=== PATIENT | male | born 1960 | race Caucasian/White ===

== ENCOUNTER 2017-01-16 13:17 | Inpatient (IN) | payer MEDICAID, MEDICARE, OTHER ==
[~2017-01-16] VITALS: Ht 188 cm; Wt 68.3 kg
[2017-01-16] MEDS ORDERED: IV NORMAL SALINE 1000ML BAG 1,000 ML IV SCH (13:37)
[2017-01-16] MEDS ORDERED: 0.9 % SODIUM CHLORIDE 10 ML DISP.SYRIN. IV PRN (13:45)
[2017-01-16] MEDS ORDERED: ONDANSETRON PF 4 MG/2 ML VIAL. IV ONE (13:45)
--- NOTE | 2017-01-16 13:49 | PHYS DOC ---
Past Medical History Past Medical History: Anxiety, Bipolar, Depression, GERD, Hypertension Additional Past Surgical Histo: right shoulder Alcohol Use: None Drug Use: None Adult General Chief Complaint Chief Complaint: ABNORMAL LABS HPI HPI As patient is a pleasant 56-year-old male coming from a debilitation facility for continued altered mental status as progressive over the last 6 weeks. The last 6 weeks staff is noted increased confusion decreased appetite and decreased energy. Patient complains from earlier of fuse abdominal discomfort and decreasing appetite. He denies any nausea, vomiting, diarrhea denies any fever or UTI symptoms. Patient denies any sick contacts or recent changes in medications. Staff also did notice the change of the color of his skin where he was looking progressively jaundiced. Patient has no real complaints other than mild abdominal discomfort with nausea. He said the pain does not radiate to his back or his abdomen. Patient admits the pain is been there for 4 days although the staff reports been there for 6 months. Differential diagnosis for abdominal pain considered Acute pancreatitis. Appendicitis. Acute hepatitis. Peptic ulcer disease. Nonulcer dyspepsia. Irritable bowel disease. Functional gallbladder disorder. Sphincter of Oddi dysfunction. Diseases of the right kidney. Right-sided pneumonia. Ivzh-Ngna-Gptvqs syndrome Subhepatic or intraabdominal abscess. Perforated viscus. Cardiac ischemia. Black spider envenomation Review of Systems Review of Systems Constitutional: Denies fever or chills [] Eyes: Denies change in visual acuity, redness, or eye pain [] HENT: Denies nasal congestion or sore throat [] Respiratory: Denies cough or shortness of breath [] Cardiovascular: No additional information not addressed in HPI [] GI: Patient has diffuse abdominal pain with nausea but no vomiting of bloody stools or diarrhea : Denies dysuria or hematuria [] Musculoskeletal: Denies back pain or joint pain [] Integument: Denies rash or skin lesions [] Neurologic: Denies headache, focal weakness or sensory changes he admits acute confusion[] Endocrine: Denies polyuria or polydipsia [] Current Medications Current Medications Current Medications Medications (Trade) Dose Ordered Sig/Dakota Start Time Stop Time Status Last Admin Dose Admin Ondansetron HCl (Zofran) 4 mg 1X ONCE 01/16/17 13:45 01/16/17 13:47 DC 01/16/17 14:04 4 MG Sodium Chloride (Normal Saline Flush) 10 ml QSHIFT PRN 01/16/17 13:45 Allergies Allergies Allergies Coded Allergies Type Severity Reaction Last Updated Verified No Known Drug Allergies 01/16/17 No Physical Exam Physical Exam Constitutional: He is thin and cachectic somewhat disheveled but in no acute distress HENT: Normocephalic, atraumatic, bilateral external ears normal, very dry mucous membranes with no dentition no oral exudates, nose normal. Icterus noted on the floor the mouth. [] Eyes: PERRLA, EOMI, conjunctiva normal, no icterus noted no discharge. [] Neck: Normal range of motion, no tenderness, supple, no stridor. [] Cardiovascular:Heart rate regular rhythm, no murmur [] Lungs & Thorax: Bilateral breath sounds clear to auscultation [] Abdomen: Patient is normoactive bowel sounds soft nondistended no active guarding rebound or organomegaly no Hopkins Khoury sign no Abel's or McBurney's point tenderness palpation. Skin: Warm, dry, no erythema, skin is pale and somewhat jaundiced Back: No tenderness, no CVA tenderness. [] Extremities: No tenderness, no cyanosis, no clubbing, ROM intact, no edema. [] Neurologic: Alert and oriented X 1, normal motor function, normal sensory function, no focal deficits noted. [] Psychologic: Patient is slow to respond, but appropriate. Current Patient Data Vital Signs Vital Signs Date Time Temp Pulse Resp B/P (MAP) Pulse Ox O2 Delivery O2 Flow Rate FiO2 01/16/17 14:08 92 18 108/68 (81) 95 Room Air 01/16/17 13:33 98.0 98.0 Lab Values Laboratory Tests Test 01/16/17 13:43 01/16/17 15:05 White Blood Count 7.7 x10^3/uL (4.0-11.0) Red Blood Count 5.08 x10^6/uL (4.30-5.70) Hemoglobin 14.3 g/dL (13.0-17.5) Hematocrit 42.6 % (39.0-53.0) Mean Corpuscular Volume 84 fL (79-100) Mean Corpuscular Hemoglobin 28 pg (25-35) Mean Corpuscular Hemoglobin Concent 34 g/dL (31-37) Red Cell Distribution Width 13.6 % (11.5-14.5) Platelet Count 322 x10^3/uL (140-400) Neutrophils (%) (Auto) 60 % (31-73) Lymphocytes (%) (Auto) 26 % (24-48) Monocytes (%) (Auto) 12 % (0-9) H Eosinophils (%) (Auto) 1 % (0-3) Basophils (%) (Auto) 1 % (0-3) Neutrophils # (Auto) 4.7 x10^3uL (1.8-7.7) Lymphocytes # (Auto) 2.0 x10^3/uL (1.0-4.8) Monocytes # (Auto) 0.9 x10^3/uL (0.0-1.1) Eosinophils # (Auto) 0.1 x10^3/uL (0.0-0.7) Basophils # (Auto) 0.0 x10^3/uL (0.0-0.2) Sodium Level 133 mmol/L (136-145) L Potassium Level 3.9 mmol/L (3.5-5.1) Chloride Level 96 mmol/L (98-107) L Carbon Dioxide Level 29 mmol/L (21-32) Anion Gap 8 (6-14) Blood Urea Nitrogen 6 mg/dL (8-26) L Creatinine 1.0 mg/dL (0.7-1.3) Estimated GFR (Cockcroft-Gault) 77.9 Glucose Level 102 mg/dL (70-99) H Lactic Acid Level 1.0 mmol/L (0.4-2.0) Calcium Level 9.4 mg/dL (8.5-10.1) Magnesium Level 1.9 mg/dL (1.8-2.4) Total Bilirubin 4.5 mg/dL (0.2-1.0) H Direct Bilirubin 3.6 mg/dL (0.0-0.2) H Aspartate Amino Transferase (AST) 87 U/L (15-37) H Alanine Aminotransferase (ALT) 129 U/L (16-63) H Alkaline Phosphatase 444 U/L (46-116) H Ammonia < 10 mcmol/L (11-34) L XT-Bwb-Q-Type Natriuretic Peptide 42 pg/mL (0-124) Total Protein 7.5 g/dL (6.4-8.2) Albumin 3.4 g/dL (3.4-5.0) Lipase 418 U/L (73-393) H Thyroid Stimulating Hormone (TSH) 0.549 uIU/mL (0.358-3.74) Urine Collection Type Unknown Urine Color Anastasiya Urine Clarity Clear Urine pH 6.0 Urine Specific [place] 1.010 Urine Protein Negative mg/dL (NEG-TRACE) Urine Glucose (UA) Negative mg/dL (NEG) Urine Ketones (Stick) Trace mg/dL (NEG) Urine Blood Negative (NEG) Urine Nitrite Negative (NEG) Urine Bilirubin Large (NEG) Urine Urobilinogen Dipstick 1.0 mg/dL (0.2 mg/dL) Urine Leukocyte Esterase Trace (NEG) Urine RBC 0 /HPF (0-2) Urine WBC 5-10 /HPF (0-4) Urine Bacteria 0 /HPF (0-FEW) Urine Hyaline Casts Few /HPF Urine Mucus Slight /LPF Laboratory Tests 01/16/17 13:43 Laboratory Tests 01/16/17 13:43 EKG EKG []EKG timed [address] Soler 01/16/2017 demonstrates heart rate of 81 there is a pediatric QRS is normal sinus rhythm there is a large P wave in lead 2 consistent with the atraumatic [place] interval is 146 which is normal QRS intervals 88 which is normal QTC is 451 which is normal. There is RR prime noted in V1 and V2 likely consistent with incomplete right bundle-branch block given with a QRS Radiology/Procedures Radiology/Procedures [] [facility] [address] [place] [address] IMAGING REPORT Signed PATIENT: YOUNG BAILEY ACCOUNT: [id number] : 1960 LOCATION: ER AGE: 56 SEX: M EXAM STATUS: REG ER ORD. PHYSICIAN: ABELARDO SOLER MD REASON: ABD PAIN PROCEDURE: CT ABDOMEN PELVIS WO CONTRAST Indication jaundiced. Axial noncontrast images of the abdomen and pelvis were obtained. The study is very limited particularly in evaluating the biliary tree and pancreas in that no IV contrast has been administered. No prior imaging is available. There is some minimal pleural-parenchymal scarring at the lung bases. There is a 9 mm pulmonary nodule in the posterior and medial right lower lobe. There is a 7 mm nodule medially in the right lower lobe, on the ventral side of the chest abutting the adjacent mediastinum. There several suggested nodules peripherally in the left lower lobe the largest measuring 1 cm. There is no significant pleural fluid at either lung base. A definite acute finding at either lung base is not seen. A focal mass in the liver is not seen. Again evaluation of the biliary tree is difficult in that no IV contrast as been administered. The common bile duct is perhaps minimally prominent. The gallbladder is minimally distended. No mass is suggested in the pancreatic head. There is, however, at the junction of the body and tail of the pancreas a low-density 2.6 cm mass suggesting mass at this level of the pancreas. This too could be further evaluated with a contrast exam or an MR targeted to the pancreas. No adrenal or renal anomalies are seen. In the pelvis occasional diverticula are seen associated with the large bowel. There is some mild thickening, diffusely, involving the urinary bladder. This would suggest either a chronic outlet obstructive process or possible chronic inflammation. A sclerotic focus is noted associated with the L3 vertebral body likely reflecting a bone island. There is deformity involving both the right left ischium compatible with healed fractures. There is possible adenopathy at the root of the celiac and SMA. The finding is not certain. IMPRESSION: Evaluation of the biliary tree is limited in that no IV contrast has been administered. The common bile duct is somewhat prominent and the gallbladder is slightly distended. There is no definite mass at the level of the pancreatic head although a mass is suggested at the junction of the body and tail of the pancreas. Several pulmonary nodules are seen at the lung bases. These are nonspecific. Metastatic disease is not excluded. Diffuse thickening of the urinary bladder wall suggesting either chronic inflammatory process or outlet obstructive process. Healed pelvic fractures Possible adenopathy, the finding is not certain, at the origins of the celiac and SMA PQRS Compliance Statement: One or more of the following individualized dose reduction techniques were utilized for this examination: 1. Automated exposure control 2. Adjustment of the mA and/or kV according to patient size 3. Use of iterative reconstruction technique DICTATED and SIGNED BY: SARAH PORTILLO MD DATE: 01/16/17 7926 CC: ABELARDO SOLER MD; SHANA GONZALEZ ~ Course & Med Decision Making Course & Med Decision Making Pertinent Labs and Imaging studies reviewed. (See chart for details) she presents to the emergency department with altered mental status patient described as increasing confusion and somnolence with jaundice. 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 His skin is somewhat jaundiced in appearance although he is non-toxic he does seem relatively cachectic and frail. Patient does demonstrate significant dehydration on physical exam. He does demonstrate also pain in the right upper quadrant. CAT scan of abdomen and pelvis reported that the common bile duct is somewhat predominant in the gallbladder slightly distended. It is also makes reference to several job honer at the lung bases that are nonspecific but could be metastatic disease. Patient also has a suggested the junction of the body metallic pancreas and given his abdominal pain and abnormal biliary chief findings patient had an ultrasound set up. At this point given his negative ammonia level, negative urinalysis for signs of infection other than mild white blood cell count in his urine patient clearly is not having an infection. I concern primarily is this pancreatic mass. Patient will be admitted to the hospital under the care of hospitalist service and then have GI evaluate him for this pancreatic mass. IMPRESSION: Evaluation of the biliary tree is limited in that no IV contrast has been administered. The common bile duct is somewhat prominent and the gallbladder is slightly distended. There is no definite mass at the level of the pancreatic head although a mass is suggested at the junction of the body and tail of the pancreas. Several pulmonary nodules are seen at the lung bases. These are nonspecific. Metastatic disease is not excluded. Diffuse thickening of the urinary bladder wall suggesting either chronic inflammatory process or outlet obstructive process. Healed pelvic fractures Possible adenopathy, the finding is not certain, at the origins of the celiac and SMA []Flight Deck Officer note: Internal medicine janitorial services supervisor called at of the service time of consultation is 3:50 PM Consult called back at 3:50 PM Discussed the case I presented and they agreed with admission. Time of acceptance 3:50 PM Impression: Jaundice, pancreatic mass, abdominal pain unclear etiology. Dragon Disclaimer Dragon Disclaimer This electronic medical record was generated, in whole or in part, using a voice recognition dictation system. Departure Departure Impression: Primary Impression: Pancreatic mass Additional Impressions: Jaundice Abdominal pain Disposition: 09 ADMITTED INPATIENT Admitting Physician: Aris Dubon Condition: GUARDED Problem Qualifiers ABELARDO SOLER MD Jan 16, 2017 13:49
--- NOTE | 2017-01-16 13:50 | EKG ---
[facility] [address] [place] [address] Test Date: 2017-01-16 Test Time: 13:43:51 Pat Name: YOUNG BAILEY Department: Room: Gender: Tipple Boss: : 1960 Requested By: ABELARDO SOLER Order Number: [id number] Reading MD: Measurements Intervals [place] Rate: 81 P: 44 MT: 146 QRS: 27 QRSD: 88 T: 60 QT: 388 QTc: 451 Interpretive Statements SINUS RHYTHM LEFT ATRIAL ABNORMALITY INCOMPLETE RIGHT BUNDLE BRANCH BLOCK ABNORMAL ECG RI6.01 No previous ECG available for comparison
[2017-01-16 14:00] LABS: BASO % 1 % (0-3); EOS % 1 % (0-3); HEMATOCRIT 42.6 % (39.0-53.0); HEMOGLOBIN 14.3 g/dL (13.0-17.5); LYMPH % 26 % (24-48); MEAN CORPUSCULAR HEMOGLOBIN 28 pg (25-35); MEAN CORPUSCULAR HGB CONC 34 g/dL (31-37); MEAN CORPUSCULAR VOLUME 84 fL (79-100); MONO % 12 % (0-9); NEUT % 60 % (31-73); PLATELET COUNT 322 x10^3/uL (140-400); RED BLOOD COUNT 5.08 x10^6/uL (4.30-5.70); RED CELL DISTRIBUTION WIDTH 13.6 % (11.5-14.5); WHITE BLOOD COUNT 7.7 x10^3/uL (4.0-11.0)
[2017-01-16 14:18] LABS: CALCIUM 9.4 mg/dL (8.5-10.1); GFR 77.9; POTASSIUM 3.9 mmol/L (3.5-5.1)
[2017-01-16 14:22] LABS: ALBUMIN 3.4 g/dL (3.4-5.0); DIRECT BILIRUBIN 3.6 mg/dL (0.0-0.2); MAGNESIUM 1.9 mg/dL (1.8-2.4); TOTAL BILIRUBIN 4.5 mg/dL (0.2-1.0); TOTAL PROTEIN 7.5 g/dL (6.4-8.2)
--- NOTE | 2017-01-16 14:48 | RAD ---
Indication change in mental status. Protocol study. A single view of the chest was obtained. No prior imaging is available. The heart and pulmonary vessels appear normal. There is minimal volume loss at the lung bases likely reflecting atelectasis. There is no definite acute parenchymal infiltrate in either lung. There is slight blunting of the costophrenic angles which may reflect scar. There is no pneumothorax. Postoperative changes are noted associated with the proximal right humerus. There are healed right lower rib fractures. IMPRESSION: Minimal volume loss at the lung bases likely reflecting atelectasis. A definite acute or focal process in the chest is not seen
--- NOTE | 2017-01-16 15:02 | RAD ---
Indication jaundiced. Axial noncontrast images of the abdomen and pelvis were obtained. The study is very limited particularly in evaluating the biliary tree and pancreas in that no IV contrast has been administered. No prior imaging is available. There is some minimal pleural-parenchymal scarring at the lung bases. There is a 9 mm pulmonary nodule in the posterior and medial right lower lobe. There is a 7 mm nodule medially in the right lower lobe, on the ventral side of the chest abutting the adjacent mediastinum. There several suggested nodules peripherally in the left lower lobe the largest measuring 1 cm. There is no significant pleural fluid at either lung base. A definite acute finding at either lung base is not seen. A focal mass in the liver is not seen. Again evaluation of the biliary tree is difficult in that no IV contrast as been administered. The common bile duct is perhaps minimally prominent. The gallbladder is minimally distended. No mass is suggested in the pancreatic head. There is, however, at the junction of the body and tail of the pancreas a low-density 2.6 cm mass suggesting mass at this level of the pancreas. This too could be further evaluated with a contrast exam or an MR targeted to the pancreas. No adrenal or renal anomalies are seen. In the pelvis occasional diverticula are seen associated with the large bowel. There is some mild thickening, diffusely, involving the urinary bladder. This would suggest either a chronic outlet obstructive process or possible chronic inflammation. A sclerotic focus is noted associated with the L3 vertebral body likely reflecting a bone island. There is deformity involving both the right left ischium compatible with healed fractures. There is possible adenopathy at the root of the celiac and SMA. The finding is not certain. IMPRESSION: Evaluation of the biliary tree is limited in that no IV contrast has been administered. The common bile duct is somewhat prominent and the gallbladder is slightly distended. There is no definite mass at the level of the pancreatic head although a mass is suggested at the junction of the body and tail of the pancreas. Several pulmonary nodules are seen at the lung bases. These are nonspecific. Metastatic disease is not excluded. Diffuse thickening of the urinary bladder wall suggesting either chronic inflammatory process or outlet obstructive process. Healed pelvic fractures Possible adenopathy, the finding is not certain, at the origins of the celiac and SMA PQRS Compliance Statement: One or more of the following individualized dose reduction techniques were utilized for this examination: 1. Automated exposure control 2. Adjustment of the mA and/or kV according to patient size 3. Use of iterative reconstruction technique
[2017-01-16 15:18] LABS: BILIRUBIN,URINE LARGE (NEG); GLUCOSE,URINE NEGATIVE (NEG); NITRITE,URINE NEGATIVE (NEG); PROTEIN,URINE NEGATIVE (NEG-TRACE)
[2017-01-16 15:30] LABS: BACTERIA,URINE 0 /HPF (0-FEW); RBC,URINE 0 /HPF (0-2)
[2017-01-16] MEDS ORDERED: ONDANSETRON PF 4 MG/2 ML VIAL. IV PRN (16:15)
[2017-01-16] MEDS ORDERED: fentaNYL PF VIAL 100 MCG/2 ML VIAL IV PRN (16:15)
[2017-01-16] MEDS ORDERED: ACETAMINOPHEN 325 MG TABLET. PO PRN (16:30)
[2017-01-16] MEDS ORDERED: hydrALAZINE 20 MG/ML VIAL. IVP PRN (16:30)
[2017-01-16] MEDS ORDERED: DOCUSATE SODIUM 100 MG CAPSULE. PO PRN (16:30)
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
[2017-01-16 17:26] LABS: INR 1.2 (0.8-1.1); PROTHROMBIN TIME PATIENT 14.3 SEC (11.7-14.0)
--- NOTE | 2017-01-16 17:26 | RAD ---
EXAM: CT of the chest without intravenous contrast. HISTORY: Lung nodules. TECHNIQUE: Computed tomography of the chest was performed without intravenous contrast. COMPARISON: Today's abdominal CT. FINDINGS: Refer to the abdominal CT for description of a pancreatic mass, surrounding adenopathy, and biliary dilatation. Bone windows reveal no suspicious lesions. There is a chronic compression deformity along the lower thoracic spine. Changes of internal fixation of a chronic fracture are noted along the right proximal humerus. There are no pathologically enlarged mediastinal or axillary lymph nodes. There is no pleural or pericardial effusion. The heart is not enlarged. A soft tissue density adjacent to the mediastinal border anteriorly on the right measures 8 mm transaxially and 17 mm craniocaudally. This is indeterminate but most likely represents atelectasis. Additional nodular foci in the lung bases are contiguous with atelectasis and postinflammatory change or atelectasis is favored. A true nodule in the right costophrenic angle measures 8 mm but contains a central calcification favoring benignity. Another nodule along the anterior pleural reflection measures 1.4 x 0.9 cm and is indeterminate. IMPRESSION: 1. Opacities in the lung bases are mostly flat or contiguous with atelectasis/scarring and a post inflammatory process is favored. Attention on ongoing follow-up is recommended to exclude metastatic disease. 2. Refer to the abdominal CT for description of a pancreatic mass, surrounding adenopathy, and biliary dilatation. *One or more of the following individualized dose reduction techniques were utilized for this examination: 1. Automated exposure control. 2. Adjustment of the mA and/or kV according to patient size. 3. Use of iterative reconstruction technique.
--- NOTE | 2017-01-16 17:43 | RAD ---
Limited abdomen ultrasound study of the right upper quadrant HISTORY: Right upper quadrant abdominal pain. FINDINGS: There is diffuse biliary sludge and and cholesterol crystals within the gallbladder. The gallbladder is distended measuring up to 10.6 cm in length. No gallbladder wall thickening or pericholecystic free fluid is seen. The extra hepatic bile duct measures 4.1 mm in caliber which is normal. The midline structures including the pancreas and abdominal aorta and IVC are completely obscured due to overlying bowel gas. The liver measures 15.2 cm in length. No focal hepatic mass is seen. The length of the right kidney cannot be measured since the right kidney is not completely visualized. Only the superior pole is seen. No hydronephrosis is seen within the superior pole of the right kidney. IMPRESSION: Distended gallbladder filled with biliary sludge and cholesterol crystals. The extra hepatic bile duct is visualized within the berny hepatis and is not dilated measuring 4.1 mm in caliber. The midline structures and the right kidney are obscured due to overlying bowel gas. Electronically signed by: Raul Patino MD (01/16/2017 5:40 PM) [facility]
[2017-01-16 18:24] VITALS: BP 112/71
[2017-01-16 18:25] VITALS: BP 112/71
[2017-01-16 19:00] VITALS: BP 128/70
[2017-01-16] MEDS: IV NORMAL SALINE 1000ML BAG 1,000 ML IV SCH (20:00)
[2017-01-16 22:34] VITALS: BP 110/64
[2017-01-16] MEDS ORDERED: OMEP40CA5 PO (23:37)
[2017-01-16] MEDS ORDERED: CALC300T5 PO (23:37)
[2017-01-16] MEDS ORDERED: ACET325T9 PO (23:37)
[2017-01-16] MEDS ORDERED: FLUT9.9S NS (23:37)
[2017-01-16] MEDS ORDERED: LOSA100T6 PO (23:37)
[2017-01-16] MEDS ORDERED: CARB15DR3 OP (23:37)
[2017-01-16] MEDS ORDERED: DOCU100C28 PO (23:37)
[2017-01-16] MEDS ORDERED: MAGN2400 PO (23:37)
[2017-01-16] MEDS ORDERED: SIME100L MC (23:37)
[2017-01-16] MEDS ORDERED: NYST15CR2 TP (23:37)
[2017-01-16] MEDS ORDERED: LEVE500T6 PO (23:37)
[2017-01-16] MEDS ORDERED: ESCITALOPRAM OX10 MG PO (23:37)
[2017-01-16] MEDS ORDERED: OLAN5TAB9 PO (23:37)
[2017-01-16] MEDS ORDERED: TRAZ50TA15 PO (23:37)
[2017-01-16] MEDS ORDERED: ACID1TAB11 PO (23:37)
[2017-01-17] VITALS (11 sets, daily range): BP systolic 101–142; BP diastolic 71–82
[2017-01-17] MEDS: IV NORMAL SALINE 1000ML BAG 1,000 ML IV SCH ×2 (00:02→12:31)
[2017-01-17 05:11] LABS: BASO # 0.1 x10^3/uL (0.0-0.2); BASO % 1 % (0-3); EOS % 2 % (0-3); HEMATOCRIT 37.3 % (39.0-53.0); HEMOGLOBIN 12.6 g/dL (13.0-17.5); LYMPH # 1.7 x10^3/uL (1.0-4.8); LYMPH % 27 % (24-48); MEAN CORPUSCULAR HEMOGLOBIN 29 pg (25-35); MEAN CORPUSCULAR HGB CONC 34 g/dL (31-37); MEAN CORPUSCULAR VOLUME 85 fL (79-100); MONO % 13 % (0-9); NEUT % 57 % (31-73); PLATELET COUNT 263 x10^3/uL (140-400); RED CELL DISTRIBUTION WIDTH 13.6 % (11.5-14.5); WHITE BLOOD COUNT 6.5 x10^3/uL (4.0-11.0)
[2017-01-17 05:35] LABS: CALCIUM 8.5 mg/dL (8.5-10.1); CREATININE 0.7 mg/dL (0.7-1.3); GFR 117.5
[2017-01-17 05:36] LABS: ALBUMIN 2.8 g/dL (3.4-5.0); DIRECT BILIRUBIN 3.1 mg/dL (0.0-0.2); TOTAL BILIRUBIN 3.8 mg/dL (0.2-1.0); TOTAL PROTEIN 5.9 g/dL (6.4-8.2)
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
[2017-01-17] MEDS: ENOXAPARIN 40 MG/0.4 ML SYRINGE. SQ SCH (09:00)
[2017-01-17] MEDS ORDERED: LIDOCAINE 2% PF Vial for OR 5 ML VIAL. ONE (09:30)
[2017-01-17] MEDS ORDERED: ONDANSETRON PF 4 MG/2 ML VIAL. ONE (09:30)
[2017-01-17] MEDS ORDERED: SUCCINYLCHOLINE 200 MG/10 ML VIAL. ONE (09:30)
[2017-01-17] MEDS ORDERED: PROPOFOL 20 ML IV ONE (09:30)
[2017-01-17] MEDS ORDERED: DEXAMETHASONE SOD PHOS 20 MG/5 ML VIAL. ONE (09:30)
[2017-01-17] MEDS ORDERED: FAMOTIDINE 20 MG/2 ML VIAL ONE (09:30)
[2017-01-17] MEDS ORDERED: IOHEXOL 300 MG/ML 50 ML VIAL. ONE (09:57)
[2017-01-17] MEDS ORDERED: IOHEXOL 300 MG/ML 50 ML VIAL. IV ONE (10:38)
--- NOTE | 2017-01-17 11:06 | PDOC4 ---
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
[2017-01-17] MEDS ORDERED: IV RINGERS,LACTATED 1000ML 1,000 ML IV SCH (11:20)
--- NOTE | 2017-01-17 11:21 | RAD ---
Indication jaundice. Abnormal liver function tests. For members of the Department of medicine fluoroscopy was provided. Imaging was provided primarily for guidance purposes as opposed diagnostic purposes. 8 fluoroscopic images were obtained. Fluoroscopy time associated with the examination has been indicated as 1 minute 27 seconds. According to the ERCP notes an attempt was made to place a biliary stent. This however could not be accomplished secondary to ampullary stricture.
[2017-01-17] MEDS: MORPHINE SULFATE 2 MG/ML DISP.SYRIN. IV PRN ×2 (11:24→20:14)
[2017-01-17] MEDS ORDERED: HYDROmorphone 2 MG/ML VIAL IV PRN (11:30)
[2017-01-17] MEDS ORDERED: LIDOCAINE 1% PF 2 ML VIAL. ID PRN (11:30)
[2017-01-17] MEDS ORDERED: PROCHLORPERAZINE 10 MG/2 ML VIAL. IV PRN (11:30)
[2017-01-17] MEDS ORDERED: MORPHINE SULFATE 2 MG/ML DISP.SYRIN. IV PRN (11:30)
[2017-01-17] MEDS ORDERED: fentaNYL PF VIAL 100 MCG/2 ML VIAL IV PRN ×2 (11:30)
[2017-01-17] MEDS: NICOTINE 21MG PATCH. TD SCH (12:31)
--- NOTE | 2017-01-17 13:00 | PDOC ---
PROGRESS NOTES Chief Complaint Chief Complaint AMS, with h/o dementia, acute metabolic encephalopathy w. delirium on admit one 2.6cm pancreatic mass, consider pancreatic cancer multiple lung nodules, need to rule out mets h/o dementia, not sure baseline or if recent brain injury? jaundice with elevated transaminitis previous heavy drinker. EtOH abuse GERD HTN from rehab bipolar disorder, wheelchair bound, walks with a walker History of Present Illness History of Present Illness gi consult following, Stent from ERCP unsuccessful today consider pancreatic cancer check chest CT, brain MRI HEPatitis panel, CA199, CEA PTOT Check INR, ammonia dvt ppx PTOT Vitals Vitals Vital Signs Date Time Temp Pulse Resp B/P (MAP) Pulse Ox O2 Delivery O2 Flow Rate FiO2 01/17/17 12:50 93 Room Air 10.0 01/17/17 11:45 68 20 143/76 01/17/17 11:00 98.8 98.8 Physical Exam General: Alert, Cooperative, mild distress, Other (not oriented 2/4 , some recent recall is OK, ) Heart: Normal S1, No murmurs Lungs: Other (dull bases, mod volume) Abdomen: Normal bowel sounds Extremities: No clubbing, Other (tr edema to lateral ankle, no pedal edema) Skin: No breakdown Labs LABS Laboratory Tests Test 01/16/17 13:43 01/16/17 15:05 01/17/17 04:30 White Blood Count 7.7 x10^3/uL (4.0-11.0) 6.5 x10^3/uL (4.0-11.0) Red Blood Count 5.08 x10^6/uL (4.30-5.70) 4.40 x10^6/uL (4.30-5.70) Hemoglobin 14.3 g/dL (13.0-17.5) 12.6 g/dL (13.0-17.5) Hematocrit 42.6 % (39.0-53.0) 37.3 % (39.0-53.0) Mean Corpuscular Volume 84 fL (79-100) 85 fL (79-100) Mean Corpuscular Hemoglobin 28 pg (25-35) 29 pg (25-35) Mean Corpuscular Hemoglobin Concent 34 g/dL (31-37) 34 g/dL (31-37) Red Cell Distribution Width 13.6 % (11.5-14.5) 13.6 % (11.5-14.5) Platelet Count 322 x10^3/uL (140-400) 263 x10^3/uL (140-400) Neutrophils (%) (Auto) 60 % (31-73) 57 % (31-73) Lymphocytes (%) (Auto) 26 % (24-48) 27 % (24-48) Monocytes (%) (Auto) 12 % (0-9) 13 % (0-9) Eosinophils (%) (Auto) 1 % (0-3) 2 % (0-3) Basophils (%) (Auto) 1 % (0-3) 1 % (0-3) Neutrophils # (Auto) 4.7 x10^3uL (1.8-7.7) 3.7 x10^3uL (1.8-7.7) Lymphocytes # (Auto) 2.0 x10^3/uL (1.0-4.8) 1.7 x10^3/uL (1.0-4.8) Monocytes # (Auto) 0.9 x10^3/uL (0.0-1.1) 0.9 x10^3/uL (0.0-1.1) Eosinophils # (Auto) 0.1 x10^3/uL (0.0-0.7) 0.1 x10^3/uL (0.0-0.7) Basophils # (Auto) 0.0 x10^3/uL (0.0-0.2) 0.1 x10^3/uL (0.0-0.2) Prothrombin Time 14.3 SEC (11.7-14.0) Prothromb Time International Ratio 1.2 (0.8-1.1) Sodium Level 133 mmol/L (136-145) 137 mmol/L (136-145) Potassium Level 3.9 mmol/L (3.5-5.1) 4.0 mmol/L (3.5-5.1) Chloride Level 96 mmol/L (98-107) 103 mmol/L (98-107) Carbon Dioxide Level 29 mmol/L (21-32) 27 mmol/L (21-32) Anion Gap 8 (6-14) 7 (6-14) Blood Urea Nitrogen 6 mg/dL (8-26) 5 mg/dL (8-26) Creatinine 1.0 mg/dL (0.7-1.3) 0.7 mg/dL (0.7-1.3) Estimated GFR (Cockcroft-Gault) 77.9 117.5 Glucose Level 102 mg/dL (70-99) 93 mg/dL (70-99) Lactic Acid Level 1.0 mmol/L (0.4-2.0) Calcium Level 9.4 mg/dL (8.5-10.1) 8.5 mg/dL (8.5-10.1) Magnesium Level 1.9 mg/dL (1.8-2.4) Total Bilirubin 4.5 mg/dL (0.2-1.0) 3.8 mg/dL (0.2-1.0) Direct Bilirubin 3.6 mg/dL (0.0-0.2) 3.1 mg/dL (0.0-0.2) Aspartate Amino Transf (AST/SGOT) 87 U/L (15-37) 67 U/L (15-37) Alanine Aminotransferase (ALT/SGPT) 129 U/L (16-63) 89 U/L (16-63) Alkaline Phosphatase 444 U/L (46-116) 372 U/L (46-116) Ammonia < 10 mcmol/L (11-34) FI-Lwr-Z-Type Natriuretic Peptide 42 pg/mL (0-124) Total Protein 7.5 g/dL (6.4-8.2) 5.9 g/dL (6.4-8.2) Albumin 3.4 g/dL (3.4-5.0) 2.8 g/dL (3.4-5.0) Lipase 418 U/L (73-393) Thyroid Stimulating Hormone (TSH) 0.549 uIU/mL (0.358-3.74) Urine Collection Type Unknown Urine Color Anastasiya Urine Clarity Clear Urine pH 6.0 Urine Specific [place] 1.010 Urine Protein Negative mg/dL (NEG-TRACE) Urine Glucose (UA) Negative mg/dL (NEG) Urine Ketones (Stick) Trace mg/dL (NEG) Urine Blood Negative (NEG) Urine Nitrite Negative (NEG) Urine Bilirubin Large (NEG) Urine Urobilinogen Dipstick 1.0 mg/dL (0.2 mg/dL) Urine Leukocyte Esterase Trace (NEG) Urine RBC 0 /HPF (0-2) Urine WBC 5-10 /HPF (0-4) Urine Bacteria 0 /HPF (0-FEW) Urine Hyaline Casts Few /HPF Urine Mucus Slight /LPF Review of Systems Review of Systems not hungry, some nausea no new complaint Assessment and Plan Assessmemt and Plan Problems Medical Problems: (1) Abdominal pain Status: Acute (2) Jaundice Status: Acute (3) Pancreatic mass Status: Acute Problems: Comment Review of Relevant I have reviewed the following items regla (where applicable) has been applied. Labs Laboratory Tests Test 01/16/17 13:43 01/16/17 15:05 01/17/17 04:30 White Blood Count 7.7 x10^3/uL (4.0-11.0) 6.5 x10^3/uL (4.0-11.0) Red Blood Count 5.08 x10^6/uL (4.30-5.70) 4.40 x10^6/uL (4.30-5.70) Hemoglobin 14.3 g/dL (13.0-17.5) 12.6 g/dL (13.0-17.5) Hematocrit 42.6 % (39.0-53.0) 37.3 % (39.0-53.0) Mean Corpuscular Volume 84 fL (79-100) 85 fL (79-100) Mean Corpuscular Hemoglobin 28 pg (25-35) 29 pg (25-35) Mean Corpuscular Hemoglobin Concent 34 g/dL (31-37) 34 g/dL (31-37) Red Cell Distribution Width 13.6 % (11.5-14.5) 13.6 % (11.5-14.5) Platelet Count 322 x10^3/uL (140-400) 263 x10^3/uL (140-400) Neutrophils (%) (Auto) 60 % (31-73) 57 % (31-73) Lymphocytes (%) (Auto) 26 % (24-48) 27 % (24-48) Monocytes (%) (Auto) 12 % (0-9) 13 % (0-9) Eosinophils (%) (Auto) 1 % (0-3) 2 % (0-3) Basophils (%) (Auto) 1 % (0-3) 1 % (0-3) Neutrophils # (Auto) 4.7 x10^3uL (1.8-7.7) 3.7 x10^3uL (1.8-7.7) Lymphocytes # (Auto) 2.0 x10^3/uL (1.0-4.8) 1.7 x10^3/uL (1.0-4.8) Monocytes # (Auto) 0.9 x10^3/uL (0.0-1.1) 0.9 x10^3/uL (0.0-1.1) Eosinophils # (Auto) 0.1 x10^3/uL (0.0-0.7) 0.1 x10^3/uL (0.0-0.7) Basophils # (Auto) 0.0 x10^3/uL (0.0-0.2) 0.1 x10^3/uL (0.0-0.2) Prothrombin Time 14.3 SEC (11.7-14.0) Prothromb Time International Ratio 1.2 (0.8-1.1) Sodium Level 133 mmol/L (136-145) 137 mmol/L (136-145) Potassium Level 3.9 mmol/L (3.5-5.1) 4.0 mmol/L (3.5-5.1) Chloride Level 96 mmol/L (98-107) 103 mmol/L (98-107) Carbon Dioxide Level 29 mmol/L (21-32) 27 mmol/L (21-32) Anion Gap 8 (6-14) 7 (6-14) Blood Urea Nitrogen 6 mg/dL (8-26) 5 mg/dL (8-26) Creatinine 1.0 mg/dL (0.7-1.3) 0.7 mg/dL (0.7-1.3) Estimated GFR (Cockcroft-Gault) 77.9 117.5 Glucose Level 102 mg/dL (70-99) 93 mg/dL (70-99) Lactic Acid Level 1.0 mmol/L (0.4-2.0) Calcium Level 9.4 mg/dL (8.5-10.1) 8.5 mg/dL (8.5-10.1) Magnesium Level 1.9 mg/dL (1.8-2.4) Total Bilirubin 4.5 mg/dL (0.2-1.0) 3.8 mg/dL (0.2-1.0) Direct Bilirubin 3.6 mg/dL (0.0-0.2) 3.1 mg/dL (0.0-0.2) Aspartate Amino Transf (AST/SGOT) 87 U/L (15-37) 67 U/L (15-37) Alanine Aminotransferase (ALT/SGPT) 129 U/L (16-63) 89 U/L (16-63) Alkaline Phosphatase 444 U/L (46-116) 372 U/L (46-116) Ammonia < 10 mcmol/L (11-34) GJ-Axw-R-Type Natriuretic Peptide 42 pg/mL (0-124) Total Protein 7.5 g/dL (6.4-8.2) 5.9 g/dL (6.4-8.2) Albumin 3.4 g/dL (3.4-5.0) 2.8 g/dL (3.4-5.0) Lipase 418 U/L (73-393) Thyroid Stimulating Hormone (TSH) 0.549 uIU/mL (0.358-3.74) Urine Collection Type Unknown Urine Color Anastasiya Urine Clarity Clear Urine pH 6.0 Urine Specific [place] 1.010 Urine Protein Negative mg/dL (NEG-TRACE) Urine Glucose (UA) Negative mg/dL (NEG) Urine Ketones (Stick) Trace mg/dL (NEG) Urine Blood Negative (NEG) Urine Nitrite Negative (NEG) Urine Bilirubin Large (NEG) Urine Urobilinogen Dipstick 1.0 mg/dL (0.2 mg/dL) Urine Leukocyte Esterase Trace (NEG) Urine RBC 0 /HPF (0-2) Urine WBC 5-10 /HPF (0-4) Urine Bacteria 0 /HPF (0-FEW) Urine Hyaline Casts Few /HPF Urine Mucus Slight /LPF Laboratory Tests Test 01/16/17 13:43 01/16/17 15:05 01/17/17 04:30 White Blood Count 7.7 x10^3/uL (4.0-11.0) 6.5 x10^3/uL (4.0-11.0) Red Blood Count 5.08 x10^6/uL (4.30-5.70) 4.40 x10^6/uL (4.30-5.70) Hemoglobin 14.3 g/dL (13.0-17.5) 12.6 g/dL (13.0-17.5) Hematocrit 42.6 % (39.0-53.0) 37.3 % (39.0-53.0) Mean Corpuscular Volume 84 fL (79-100) 85 fL (79-100) Mean Corpuscular Hemoglobin 28 pg (25-35) 29 pg (25-35) Mean Corpuscular Hemoglobin Concent 34 g/dL (31-37) 34 g/dL (31-37) Red Cell Distribution Width 13.6 % (11.5-14.5) 13.6 % (11.5-14.5) Platelet Count 322 x10^3/uL (140-400) 263 x10^3/uL (140-400) Neutrophils (%) (Auto) 60 % (31-73) 57 % (31-73) Lymphocytes (%) (Auto) 26 % (24-48) 27 % (24-48) Monocytes (%) (Auto) 12 % (0-9) 13 % (0-9) Eosinophils (%) (Auto) 1 % (0-3) 2 % (0-3) Basophils (%) (Auto) 1 % (0-3) 1 % (0-3) Neutrophils # (Auto) 4.7 x10^3uL (1.8-7.7) 3.7 x10^3uL (1.8-7.7) Lymphocytes # (Auto) 2.0 x10^3/uL (1.0-4.8) 1.7 x10^3/uL (1.0-4.8) Monocytes # (Auto) 0.9 x10^3/uL (0.0-1.1) 0.9 x10^3/uL (0.0-1.1) Eosinophils # (Auto) 0.1 x10^3/uL (0.0-0.7) 0.1 x10^3/uL (0.0-0.7) Basophils # (Auto) 0.0 x10^3/uL (0.0-0.2) 0.1 x10^3/uL (0.0-0.2) Prothrombin Time 14.3 SEC (11.7-14.0) Prothromb Time International Ratio 1.2 (0.8-1.1) Sodium Level 133 mmol/L (136-145) 137 mmol/L (136-145) Potassium Level 3.9 mmol/L (3.5-5.1) 4.0 mmol/L (3.5-5.1) Chloride Level 96 mmol/L (98-107) 103 mmol/L (98-107) Carbon Dioxide Level 29 mmol/L (21-32) 27 mmol/L (21-32) Anion Gap 8 (6-14) 7 (6-14) Blood Urea Nitrogen 6 mg/dL (8-26) 5 mg/dL (8-26) Creatinine 1.0 mg/dL (0.7-1.3) 0.7 mg/dL (0.7-1.3) Estimated GFR (Cockcroft-Gault) 77.9 117.5 Glucose Level 102 mg/dL (70-99) 93 mg/dL (70-99) Lactic Acid Level 1.0 mmol/L (0.4-2.0) Calcium Level 9.4 mg/dL (8.5-10.1) 8.5 mg/dL (8.5-10.1) Magnesium Level 1.9 mg/dL (1.8-2.4) Total Bilirubin 4.5 mg/dL (0.2-1.0) 3.8 mg/dL (0.2-1.0) Direct Bilirubin 3.6 mg/dL (0.0-0.2) 3.1 mg/dL (0.0-0.2) Aspartate Amino Transf (AST/SGOT) 87 U/L (15-37) 67 U/L (15-37) Alanine Aminotransferase (ALT/SGPT) 129 U/L (16-63) 89 U/L (16-63) Alkaline Phosphatase 444 U/L (46-116) 372 U/L (46-116) Ammonia < 10 mcmol/L (11-34) SU-Oax-N-Type Natriuretic Peptide 42 pg/mL (0-124) Total Protein 7.5 g/dL (6.4-8.2) 5.9 g/dL (6.4-8.2) Albumin 3.4 g/dL (3.4-5.0) 2.8 g/dL (3.4-5.0) Lipase 418 U/L (73-393) Thyroid Stimulating Hormone (TSH) 0.549 uIU/mL (0.358-3.74) Urine Collection Type Unknown Urine Color Anastasiya Urine Clarity Clear Urine pH 6.0 Urine Specific [place] 1.010 Urine Protein Negative mg/dL (NEG-TRACE) Urine Glucose (UA) Negative mg/dL (NEG) Urine Ketones (Stick) Trace mg/dL (NEG) Urine Blood Negative (NEG) Urine Nitrite Negative (NEG) Urine Bilirubin Large (NEG) Urine Urobilinogen Dipstick 1.0 mg/dL (0.2 mg/dL) Urine Leukocyte Esterase Trace (NEG) Urine RBC 0 /HPF (0-2) Urine WBC 5-10 /HPF (0-4) Urine Bacteria 0 /HPF (0-FEW) Urine Hyaline Casts Few /HPF Urine Mucus Slight /LPF Medications Current Medications Sodium Chloride 1,000 ml @ 1,000 mls/hr Q1H IV Last administered on 14:05; Start 01/16/17 at 13:37; Stop 01/16/17 at 14:36; Status DC Sodium Chloride (Normal Saline Flush) 10 ml QSHIFT PRN IV AFTER MEDS AND BLOOD DRAWS; Start 01/16/17 at 13:45 Ondansetron HCl (Zofran) 4 mg 1X ONCE IV Last administered on 01/16/17 14:04 ; Start 01/16/17 at 13:45; Stop 01/16/17 at 13:47; Status DC Ondansetron HCl (Zofran) 4 mg PRN Q8HRS PRN IV NAUSEA/VOMITING Last administered on 01/17/17 09:11; Start 01/16/17 at 16:15; Stop 01/17/17 at 16 :14 Fentanyl Citrate (Fentanyl 2ml Vial) 50 mcg PRN Q2HR PRN IV PAIN Last administered on 01/16/17 14:05; Start 01/16/17 at 16:15; Stop 01/17/17 at 16 :14 Sodium Chloride 1,000 ml @ 125 mls/hr Q8H IV Last administered on 01/17/17 12:31; Start 01/16/17 at 16:02; Stop 01/17/17 at 16:01 Acetaminophen (Tylenol) 650 mg PRN Q6HRS PRN PO FEVER; Start 01/16/17 at 16:30 Ondansetron HCl (Zofran) 4 mg PRN Q6HRS PRN IV NAUSEA/VOMITING; Start at 16:30 Morphine Sulfate 2 mg PRN Q2HR PRN IV PAIN Last administered on 01/17/17 11: 24; Start 01/16/17 at 16:30 Tramadol HCl (Ultram) 50 mg PRN Q6HRS PRN PO PAIN; Start 01/16/17 at 16:30 Hydralazine HCl (Apresoline Inj) 10 mg PRN Q4HRS PRN IVP ELEVATED BP, SEE COMMENTS; Start 01/16/17 at 16:30 Docusate Sodium (Colace) 100 mg PRN DAILY PRN PO CONSTIPATION; Start 01/16/17 at 16:30 Enoxaparin Sodium (Lovenox 40mg Syringe) 40 mg DAILY SQ ; Start 01/17/17 at 09: 00 Propofol 20 ml @ As Directed STK-MED ONCE IV ; Start 01/17/17 at 09:30; Stop 01/17/17 at 09:31; Status DC Dexamethasone Sodium Phosphate (Decadron) 20 mg STK-MED ONCE .ROUTE ; Start at 09:30; Stop 01/17/17 at 09:31; Status DC Famotidine (Pepcid) 20 mg STK-MED ONCE .ROUTE ; Start 01/17/17 at 09:30; Stop 01/17/17 at 09:31; Status DC Lidocaine HCl (Lidocaine Pf 2% Vial) 5 ml STK-MED ONCE .ROUTE ; Start 01/17/17 at 09:30; Stop 01/17/17 at 09:31; Status DC Ondansetron HCl (Zofran) 4 mg STK-MED ONCE .ROUTE ; Start 01/17/17 at 09:30; Stop 01/17/17 at 09:31; Status DC Succinylcholine Chloride (Anectine) 200 mg STK-MED ONCE .ROUTE ; Start at 09:30; Stop 01/17/17 at 09:31; Status DC Iohexol (Omnipaque 300 Mg/ml) 50 ml STK-MED ONCE .ROUTE ; Start 01/17/17 at 09: 57; Stop 01/17/17 at 09:58; Status DC Iohexol (Omnipaque 300 Mg/ml) 50 ml STK-MED ONCE IV Last administered on 10:38; Start 01/17/17 at 10:38; Stop 01/17/17 at 10:53; Status DC Levofloxacin/ Dextrose 100 ml @ 100 mls/hr Q24H IV Last administered on 11:42; Start 01/17/17 at 12:00 Fentanyl Citrate (Fentanyl 2ml Vial) 25 mcg PRN Q5MIN PRN IV MILD PAIN; Start 01/17/17 at 11:30; Stop 01/18/17 at 11:29 Fentanyl Citrate (Fentanyl 2ml Vial) 50 mcg PRN Q5MIN PRN IV MODERATE PAIN; Start 01/17/17 at 11:30; Stop 01/18/17 at 11:29 Morphine Sulfate 1 mg PRN Q10MIN PRN IV SEVERE PAIN; Start 01/17/17 at 11:30; Stop 01/18/17 at 11:29 Ringer's Solution 1,000 ml @ 30 mls/hr Q24H IV ; Start 01/17/17 at 11:20; Stop 01/17/17 at 23:19 Lidocaine HCl (Xylocaine-Mpf 1% Vial) 2 ml 1X PRN PRN ID IV START; Start 01/17 at 11:30; Stop 01/18/17 at 11:29 Hydromorphone HCl (Dilaudid) 0.5 mg PRN Q10MIN PRN IV SEV PAIN, Second choice; Start 01/17/17 at 11:30; Stop 01/18/17 at 11:29 Prochlorperazine Edisylate (Compazine) 5 mg PACU PRN PRN IV NAUSEA, MRX1 Last administered on 01/17/17 12:44; Start 01/17/17 at 11:30; Stop 01/18/17 at 11 :29 Nicotine (Nicoderm Cq 21mg) 1 patch DAILY TD Last administered on 10/20/17at 12 :31; Start 01/17/17 at 12:00 Active Scripts Active Reported Nystatin-Triamcinolone Cream (Nystatin/Triamcin) 15 Gm Cream..g. 15 Gm TP PRN BID PRN Tylenol (Acetaminophen) 325 Mg Tablet 500 Mg PO PRN Q6HRS PRN Flonase Allergy Relief (Fluticasone Propionate) 9.9 Ml [place].susp 1 Sprays NS PRN DAILY PRN Tums (Calcium Carbonate) 300 Mg Tab.chew 300 Mg PO PRN Q1HR PRN Docusate Sodium 100 Mg Capsule 100 Mg PO BID Levetiracetam 500 Mg Tablet 500 Mg PO BID Olanzapine 5 Mg Tablet 2.5 Mg PO HS Trazodone Hcl 50 Mg Tablet 50 Mg PO HS Escitalopram Oxalate 10 Mg Tablet 30 Mg PO DAILY Losartan Potassium 100 Mg Tablet 100 Mg PO DAILY Omeprazole 40 Mg Capsule.dr 40 Mg PO DAILY Bacid Caplet (Acidoph/L.bulg/Bif.b/S.thermop) 1 Each Tablet 2 Each PO DAILY Simethicone 100 Ml Liquid 30 Ml MC PRN Q6HRS PRN Refresh Optive Eye Drops (Carboxymethylcellulos/Glycerin) 15 Ml Drops 15 Ml OP PRN Q1HR PRN Milk Of Magnesia (Magnesium Hydroxide) 2,400 Mg/10 Ml Oral.susp 2,400 Mg PO PRN DAILY PRN Vitals/I & O Vital Sign - Last 24 Hours 01/16/17 01/16/17 01/16/17 01/16/17 13:33 14:05 14:08 16:55 Temp 98.0 98.0 Pulse 90 92 73 Resp 18 20 18 18 B/P (MAP) 99/70 (80) 108/68 (81) 115/83 (94) Pulse Ox 94 95 95 95 O2 Delivery Room Air Room Air Room Air Room Air 01/16/17 01/16/17 01/16/17 01/16/17 18:24 18:25 19:00 19:35 Temp 96.4 96.4 98.0 96.4 96.4 98.0 Pulse 65 65 69 Resp 16 16 18 B/P (MAP) 112/71 (85) 112/71 (85) 128/70 (89) Pulse Ox 95 95 96 O2 Delivery Room Air Room Air Room Air Room Air 10/01/17/17 01/17/17 01/17/17 22:34 02:33 07:00 08:00 Temp 98.6 98.2 98.4 98.6 98.2 98.4 Pulse 76 74 75 Resp 18 18 19 B/P (MAP) 110/64 (79) 112/73 (86) 131/80 (97) Pulse Ox 94 95 95 O2 Delivery Room Air Room Air Room Air Room Air 01/17/17 01/17/17 01/17/17 01/17/17 09:58 11:00 11:15 11:24 Temp 98.8 98.8 Pulse 88 76 87 Resp 20 20 20 20 B/P (MAP) 131/79 129/68 Pulse Ox 100 98 99 100 O2 Delivery Simple Mask Simple Mask Simple Mask O2 Flow Rate 10 10 10.0 01/17/17 01/17/17 01/17/17 11:30 11:45 12:50 Pulse 67 68 Resp 20 20 B/P (MAP) 127/74 143/76 Pulse Ox 94 93 93 O2 Delivery Room Air Room Air Room Air O2 Flow Rate 10.0 Intake and Output 01/17/17 01/17/17 01/18/17 15:00 23:00 07:00 Intake Total 1000 ml Balance 1000 ml RICARDO MERRILL MD Jan 17, 2017 13:00
[2017-01-17] MEDS ORDERED: GADOBUTROL 7.5 MMOL/7.5 ML VIAL IV ONE (15:00)
--- NOTE | 2017-01-17 15:05 | PDOC ---
SURGICAL PROGRESS NOTE Subjective Consult received Pt out of room for MRI d/w briefly with GI would worry about a primary liver process without obvious evidence of obstruction agree with evaluating for possible mets would consider transhepatic cholangiogram +/- liver biopsy Vital Signs Vital Signs Date Time Temp Pulse Resp B/P (MAP) Pulse Ox O2 Delivery O2 Flow Rate FiO2 01/17/17 12:50 93 Room Air 10.0 01/17/17 11:45 68 20 143/76 01/17/17 11:00 98.8 98.8 I&O Intake and Output 01/18/17 06:59 Intake Total 1000 ml Balance 1000 ml IV Total 1000 ml Labs Laboratory Tests Test 01/16/17 13:43 01/16/17 15:05 01/17/17 04:30 White Blood Count 7.7 x10^3/uL (4.0-11.0) 6.5 x10^3/uL (4.0-11.0) Red Blood Count 5.08 x10^6/uL (4.30-5.70) 4.40 x10^6/uL (4.30-5.70) Hemoglobin 14.3 g/dL (13.0-17.5) 12.6 g/dL (13.0-17.5) Hematocrit 42.6 % (39.0-53.0) 37.3 % (39.0-53.0) Mean Corpuscular Volume 84 fL (79-100) 85 fL (79-100) Mean Corpuscular Hemoglobin 28 pg (25-35) 29 pg (25-35) Mean Corpuscular Hemoglobin Concent 34 g/dL (31-37) 34 g/dL (31-37) Red Cell Distribution Width 13.6 % (11.5-14.5) 13.6 % (11.5-14.5) Platelet Count 322 x10^3/uL (140-400) 263 x10^3/uL (140-400) Neutrophils (%) (Auto) 60 % (31-73) 57 % (31-73) Lymphocytes (%) (Auto) 26 % (24-48) 27 % (24-48) Monocytes (%) (Auto) 12 % (0-9) 13 % (0-9) Eosinophils (%) (Auto) 1 % (0-3) 2 % (0-3) Basophils (%) (Auto) 1 % (0-3) 1 % (0-3) Neutrophils # (Auto) 4.7 x10^3uL (1.8-7.7) 3.7 x10^3uL (1.8-7.7) Lymphocytes # (Auto) 2.0 x10^3/uL (1.0-4.8) 1.7 x10^3/uL (1.0-4.8) Monocytes # (Auto) 0.9 x10^3/uL (0.0-1.1) 0.9 x10^3/uL (0.0-1.1) Eosinophils # (Auto) 0.1 x10^3/uL (0.0-0.7) 0.1 x10^3/uL (0.0-0.7) Basophils # (Auto) 0.0 x10^3/uL (0.0-0.2) 0.1 x10^3/uL (0.0-0.2) Prothrombin Time 14.3 SEC (11.7-14.0) Prothromb Time International Ratio 1.2 (0.8-1.1) Sodium Level 133 mmol/L (136-145) 137 mmol/L (136-145) Potassium Level 3.9 mmol/L (3.5-5.1) 4.0 mmol/L (3.5-5.1) Chloride Level 96 mmol/L (98-107) 103 mmol/L (98-107) Carbon Dioxide Level 29 mmol/L (21-32) 27 mmol/L (21-32) Anion Gap 8 (6-14) 7 (6-14) Blood Urea Nitrogen 6 mg/dL (8-26) 5 mg/dL (8-26) Creatinine 1.0 mg/dL (0.7-1.3) 0.7 mg/dL (0.7-1.3) Estimated GFR (Cockcroft-Gault) 77.9 117.5 Glucose Level 102 mg/dL (70-99) 93 mg/dL (70-99) Lactic Acid Level 1.0 mmol/L (0.4-2.0) Calcium Level 9.4 mg/dL (8.5-10.1) 8.5 mg/dL (8.5-10.1) Magnesium Level 1.9 mg/dL (1.8-2.4) Total Bilirubin 4.5 mg/dL (0.2-1.0) 3.8 mg/dL (0.2-1.0) Direct Bilirubin 3.6 mg/dL (0.0-0.2) 3.1 mg/dL (0.0-0.2) Aspartate Amino Transf (AST/SGOT) 87 U/L (15-37) 67 U/L (15-37) Alanine Aminotransferase (ALT/SGPT) 129 U/L (16-63) 89 U/L (16-63) Alkaline Phosphatase 444 U/L (46-116) 372 U/L (46-116) Ammonia < 10 mcmol/L (11-34) PK-Tey-T-Type Natriuretic Peptide 42 pg/mL (0-124) Total Protein 7.5 g/dL (6.4-8.2) 5.9 g/dL (6.4-8.2) Albumin 3.4 g/dL (3.4-5.0) 2.8 g/dL (3.4-5.0) Lipase 418 U/L (73-393) Thyroid Stimulating Hormone (TSH) 0.549 uIU/mL (0.358-3.74) Urine Collection Type Unknown Urine Color Anastasiya Urine Clarity Clear Urine pH 6.0 Urine Specific [place] 1.010 Urine Protein Negative mg/dL (NEG-TRACE) Urine Glucose (UA) Negative mg/dL (NEG) Urine Ketones (Stick) Trace mg/dL (NEG) Urine Blood Negative (NEG) Urine Nitrite Negative (NEG) Urine Bilirubin Large (NEG) Urine Urobilinogen Dipstick 1.0 mg/dL (0.2 mg/dL) Urine Leukocyte Esterase Trace (NEG) Urine RBC 0 /HPF (0-2) Urine WBC 5-10 /HPF (0-4) Urine Bacteria 0 /HPF (0-FEW) Urine Hyaline Casts Few /HPF Urine Mucus Slight /LPF Laboratory Tests Test 01/16/17 15:05 01/17/17 04:30 Urine Collection Type Unknown Urine Color Anastasiya Urine Clarity Clear Urine pH 6.0 Urine Specific [place] 1.010 Urine Protein Negative mg/dL (NEG-TRACE) Urine Glucose (UA) Negative mg/dL (NEG) Urine Ketones (Stick) Trace mg/dL (NEG) Urine Blood Negative (NEG) Urine Nitrite Negative (NEG) Urine Bilirubin Large (NEG) Urine Urobilinogen Dipstick 1.0 mg/dL (0.2 mg/dL) Urine Leukocyte Esterase Trace (NEG) Urine RBC 0 /HPF (0-2) Urine WBC 5-10 /HPF (0-4) Urine Bacteria 0 /HPF (0-FEW) Urine Hyaline Casts Few /HPF Urine Mucus Slight /LPF White Blood Count 6.5 x10^3/uL (4.0-11.0) Red Blood Count 4.40 x10^6/uL (4.30-5.70) Hemoglobin 12.6 g/dL (13.0-17.5) Hematocrit 37.3 % (39.0-53.0) Mean Corpuscular Volume 85 fL (79-100) Mean Corpuscular Hemoglobin 29 pg (25-35) Mean Corpuscular Hemoglobin Concent 34 g/dL (31-37) Red Cell Distribution Width 13.6 % (11.5-14.5) Platelet Count 263 x10^3/uL (140-400) Neutrophils (%) (Auto) 57 % (31-73) Lymphocytes (%) (Auto) 27 % (24-48) Monocytes (%) (Auto) 13 % (0-9) Eosinophils (%) (Auto) 2 % (0-3) Basophils (%) (Auto) 1 % (0-3) Neutrophils # (Auto) 3.7 x10^3uL (1.8-7.7) Lymphocytes # (Auto) 1.7 x10^3/uL (1.0-4.8) Monocytes # (Auto) 0.9 x10^3/uL (0.0-1.1) Eosinophils # (Auto) 0.1 x10^3/uL (0.0-0.7) Basophils # (Auto) 0.1 x10^3/uL (0.0-0.2) Sodium Level 137 mmol/L (136-145) Potassium Level 4.0 mmol/L (3.5-5.1) Chloride Level 103 mmol/L (98-107) Carbon Dioxide Level 27 mmol/L (21-32) Anion Gap 7 (6-14) Blood Urea Nitrogen 5 mg/dL (8-26) Creatinine 0.7 mg/dL (0.7-1.3) Estimated GFR (Cockcroft-Gault) 117.5 Glucose Level 93 mg/dL (70-99) Calcium Level 8.5 mg/dL (8.5-10.1) Total Bilirubin 3.8 mg/dL (0.2-1.0) Direct Bilirubin 3.1 mg/dL (0.0-0.2) Aspartate Amino Transf (AST/SGOT) 67 U/L (15-37) Alanine Aminotransferase (ALT/SGPT) 89 U/L (16-63) Alkaline Phosphatase 372 U/L (46-116) Total Protein 5.9 g/dL (6.4-8.2) Albumin 2.8 g/dL (3.4-5.0) Problem List Problems Medical Problems: (1) Abdominal pain Status: Acute (2) Jaundice Status: Acute (3) Pancreatic mass Status: Acute Problems: REJI PERALTA MD Jan 17, 2017 15:05
--- NOTE | 2017-01-17 15:37 | RAD ---
INDICATION: Altered mental status. Pancreatic mass and lung mass. Evaluate for brain metastases. TECHNIQUE: Sagittal T1, axial T1, axial T2, axial FLAIR, axial T2 gradient, diffusion imaging with ADC map, postcontrast axial, and postcontrast coronal sequences are provided. 6 mL of intravenous Gadavist was administered without complication. No comparison is available. FINDINGS: There is an area of encephalomalacia in the posterior right frontal and right parietal lobe. There is an additional area of encephalomalacia in the right frontal lobe more anteriorly. There is an overlying craniotomy defect. 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 A few areas of decreased attenuation in the supratentorial are not specific but most suggestive of minimal small vessel ischemic disease. There is prominence of the ventricles and sulci. There is no acute intracranial hemorrhage or extra-axial fluid collection. There is no mass effect or midline shift. There are areas of blooming artifact on gradient imaging in the frontal and parietal lobes bilaterally likely representing old blood product. There is no restricted diffusion to suggest an acute infarct. Cervicomedullary junction is unremarkable. Pituitary and suprasellar region are unremarkable. Intracranial flow voids are preserved. There is ethmoid mucosal thickening. There is no pathologic enhancement. There is mild motion which is greatest on the sagittal T1 and the coronal postcontrast series. IMPRESSION: 1. No acute intracranial findings. Negative for acute infarct. 2. No evidence of metastatic disease. 3. 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 Electronically signed by: Carlos Escalera MD (01/17/2017 3:34 PM) [id number]
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
[2017-01-17 17:16] LABS: HEP A IGM ABDY Negative (Negative)
[2017-01-17] MEDS ORDERED: NYSTATIN TP PRN (21:00)
[2017-01-17] MEDS ORDERED: ACETAMINOPHEN 500 MG TABLET PO PRN (21:00)
[2017-01-17] MEDS ORDERED: TRIAMCIN TP PRN (21:00)
[2017-01-17] MEDS: DOCUSATE SODIUM 100 MG CAPSULE. PO SCH (21:00)
[2017-01-17] MEDS ORDERED: diphenhydrAMINE HCL 25 MG CAPSULE PO PRN (21:00)
[2017-01-17] MEDS ORDERED: FLUTICASONE 50MCG/NASAL SPRAY 16GM BOTTLE. NS PRN ×2 (21:01→21:15)
[2017-01-17] MEDS: traZODone 50 MG TABLET. PO SCH (21:07)
[2017-01-17] MEDS: levETIRAcetam 500 MG TABLET PO SCH (21:08)
[2017-01-17] MEDS: OLANZapine 2.5 MG TABLET PO SCH (21:09)
[2017-01-17] MEDS ORDERED: NYSTATIN 100,000 UNIT/GM TOPICAL CREAM 15GM TUBE. TP PRN (21:15)
[2017-01-17] MEDS ORDERED: POLYVINYL ALCOHOL 1.4% OPHTH SOLUTION 15ML BOTTLE. OU PRN (21:15)
[2017-01-17] MEDS ORDERED: MAGNESIUM HYDROXIDE 2,400 MG/30 ML ORAL.SUSP. PO PRN (21:15)
[2017-01-17] MEDS ORDERED: TRIAMCINOLONE ACETONIDE 0.1% TOPICAL CREAM 15GM TUBE. TP PRN (21:15)
[2017-01-18 03:30] VITALS: BP 117/72
[2017-01-18 07:20] VITALS: BP 105/60
[2017-01-18] MEDS: PANTOPRAZOLE 40 MG TABLET.DR. PO SCH (08:25)
[2017-01-18] MEDS: LACTOBACILLUS RHAMNOSUS GG 1 CAPSULE. PO SCH ×2 (08:25→20:41)
[2017-01-18] MEDS: levETIRAcetam 500 MG TABLET PO SCH ×2 (08:25→20:41)
[2017-01-18] MEDS: DOCUSATE SODIUM 100 MG CAPSULE. PO SCH ×2 (08:26→20:41)
[2017-01-18] MEDS: CITALOPRAM 20 MG TABLET. PO SCH (08:26)
[2017-01-18] MEDS: NICOTINE 21MG PATCH. TD SCH (08:28)
[2017-01-18] MEDS: LOSARTAN POTASSIUM 50 MG TABLET. PO SCH (08:29)
[2017-01-18] MEDS: CALCIUM CARBONATE 500 MG TAB.CHEW PO PRN ×3 (08:32→16:23)
[2017-01-18] MEDS: ENOXAPARIN 40 MG/0.4 ML SYRINGE. SQ SCH (08:32)
[2017-01-18 11:11] VITALS: BP 108/64
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
[2017-01-18] MEDS: ONDANSETRON PF 4 MG/2 ML VIAL. IV PRN ×2 (11:52→17:26)
--- NOTE | 2017-01-18 12:06 | PDOC ---
GI PROGRESS NOTES Date Date/Time DATE: 01/18/17 TIME: 12:04 Subjective Subjective stable no fever eating Objective Vitals Vital Signs Date Time Temp Pulse Resp B/P (MAP) Pulse Ox O2 Delivery O2 Flow Rate FiO2 01/18/17 11:11 98.1 80 18 108/64 (79) 95 Room Air 98.1 01/18/17 08:29 88 105/60 01/18/17 08:05 Room Air 01/18/17 07:20 98.4 88 19 105/60 (75) 95 Room Air 98.4 01/18/17 03:30 98.2 81 18 117/72 (87) 95 Room Air 98.2 01/17/17 23:48 98.6 90 18 101/76 (84) 95 Room Air 98.6 01/17/17 20:44 Room Air 01/17/17 20:14 Room Air 01/17/17 20:00 Room Air 01/17/17 19:30 99.0 108 18 110/78 (89) 99 Room Air 99.0 01/17/17 14:15 77 135/82 (99) 01/17/17 14:00 98.3 64 18 132/75 (94) 97 Room Air 98.3 01/17/17 13:45 78 130/81 (97) 01/17/17 13:15 60 133/71 (91) 01/17/17 13:00 63 140/78 (98) 01/17/17 12:50 93 10.0 01/17/17 12:45 64 142/79 (100) 01/17/17 12:30 63 140/78 (98) Physical Exam Physical Exam VSS mild icteric abd- soft non tender good bowel sounds Assessment Assessment Pancreatic mass with biliary obstruction- ERCP with unsuccessful stent attempt yesterday- NO evidence for cholangitis or other complication today Plan- PTHC is planned Problems: STACY ROSE MD Jan 18, 2017 12:06
--- NOTE | 2017-01-18 13:58 | PDOC ---
PROGRESS NOTES Subjective Subjective pt notes some mild abdominal pain, no other complaints Objective Objective Vital Signs Date Time Temp Pulse Resp B/P (MAP) Pulse Ox O2 Delivery O2 Flow Rate FiO2 01/18/17 11:11 98.1 80 18 108/64 (79) 95 Room Air 98.1 01/17/17 12:50 10.0 Physical Exam Abdomen: Soft (mildly tender upper abdomen) Heart: Regular rate Extremities: No clubbing, No cyanosis General: Alert, Oriented X3 HEENT: Atraumatic Lungs: Clear to auscultation Neuro: Normal speech Assessment Assessment Problems Medical Problems: (1) Abdominal pain Status: Acute (2) Jaundice Status: Acute (3) Pancreatic mass Status: Acute Plan Plan of Care GI ERCP results noted; poss PTC in near future, ?endoscopic ultrasound Comment Review of Relevant I have reviewed the following items regla (where applicable) has been applied. Labs Laboratory Tests Test 01/16/17 15:05 01/16/17 17:40 01/16/17 19:00 01/17/17 04:30 Urine Collection Type Unknown Urine Color Anastasiya Urine Clarity Clear Urine pH 6.0 Urine Specific Faison 1.010 Urine Protein Negative mg/dL (NEG-TRACE) Urine Glucose (UA) Negative mg/dL (NEG) Urine Ketones (Stick) Trace mg/dL (NEG) Urine Blood Negative (NEG) Urine Nitrite Negative (NEG) Urine Bilirubin Large (NEG) Urine Urobilinogen Dipstick 1.0 mg/dL (0.2 mg/dL) Urine Leukocyte Esterase Trace (NEG) Urine RBC 0 /HPF (0-2) Urine WBC 5-10 /HPF (0-4) Urine Bacteria 0 /HPF (0-FEW) Urine Hyaline Casts Few /HPF Urine Mucus Slight /LPF Hepatitis A IgM Antibody Negative (Negative) Hepatitis B Surface Antigen Negative (Negative) Hepatitis B Core IgM Antibody Negative (Negative) Hepatitis C Antibody <0.1 s/co ratio Nasal Screen MRSA (PCR) Negative (Negative) White Blood Count 6.5 x10^3/uL (4.0-11.0) Red Blood Count 4.40 x10^6/uL (4.30-5.70) Hemoglobin 12.6 g/dL (13.0-17.5) Hematocrit 37.3 % (39.0-53.0) Mean Corpuscular Volume 85 fL (79-100) Mean Corpuscular Hemoglobin 29 pg (25-35) Mean Corpuscular Hemoglobin Concent 34 g/dL (31-37) Red Cell Distribution Width 13.6 % (11.5-14.5) Platelet Count 263 x10^3/uL (140-400) Neutrophils (%) (Auto) 57 % (31-73) Lymphocytes (%) (Auto) 27 % (24-48) Monocytes (%) (Auto) 13 % (0-9) Eosinophils (%) (Auto) 2 % (0-3) Basophils (%) (Auto) 1 % (0-3) Neutrophils # (Auto) 3.7 x10^3uL (1.8-7.7) Lymphocytes # (Auto) 1.7 x10^3/uL (1.0-4.8) Monocytes # (Auto) 0.9 x10^3/uL (0.0-1.1) Eosinophils # (Auto) 0.1 x10^3/uL (0.0-0.7) Basophils # (Auto) 0.1 x10^3/uL (0.0-0.2) Sodium Level 137 mmol/L (136-145) Potassium Level 4.0 mmol/L (3.5-5.1) Chloride Level 103 mmol/L (98-107) Carbon Dioxide Level 27 mmol/L (21-32) Anion Gap 7 (6-14) Blood Urea Nitrogen 5 mg/dL (8-26) Creatinine 0.7 mg/dL (0.7-1.3) Estimated GFR (Cockcroft-Gault) 117.5 Glucose Level 93 mg/dL (70-99) Calcium Level 8.5 mg/dL (8.5-10.1) Total Bilirubin 3.8 mg/dL (0.2-1.0) Direct Bilirubin 3.1 mg/dL (0.0-0.2) Aspartate Amino Transf (AST/SGOT) 67 U/L (15-37) Alanine Aminotransferase (ALT/SGPT) 89 U/L (16-63) Alkaline Phosphatase 372 U/L (46-116) Total Protein 5.9 g/dL (6.4-8.2) Albumin 2.8 g/dL (3.4-5.0) Test 01/18/17 08:05 Haptoglobin 273 mg/dL (34-200) Laboratory Tests Test 01/18/17 08:05 Haptoglobin 273 mg/dL (34-200) Microbiology 01/16/17 Urine Culture - Final, Complete 01/16/17 Urine Culture Result 1 (BESS) - Final, Complete Medications Current Medications Sodium Chloride 1,000 ml @ 1,000 mls/hr Q1H IV Last administered on 14:05; Start 01/16/17 at 13:37; Stop 01/16/17 at 14:36; Status DC Sodium Chloride (Normal Saline Flush) 10 ml QSHIFT PRN IV AFTER MEDS AND BLOOD DRAWS; Start 01/16/17 at 13:45 Ondansetron HCl (Zofran) 4 mg 1X ONCE IV Last administered on 01/16/17 14:04 ; Start 01/16/17 at 13:45; Stop 01/16/17 at 13:47; Status DC Ondansetron HCl (Zofran) 4 mg PRN Q8HRS PRN IV NAUSEA/VOMITING Last administered on 01/17/17 09:11; Start 01/16/17 at 16:15; Stop 01/17/17 at 16 :14; Status DC Fentanyl Citrate (Fentanyl 2ml Vial) 50 mcg PRN Q2HR PRN IV PAIN Last administered on 01/16/17 14:05; Start 01/16/17 at 16:15; Stop 01/17/17 at 16 :14; Status DC Sodium Chloride 1,000 ml @ 125 mls/hr Q8H IV Last administered on 01/17/17 12:31; Start 01/16/17 at 16:02; Stop 01/17/17 at 16:01; Status DC Acetaminophen (Tylenol) 650 mg PRN Q6HRS PRN PO FEVER; Start 01/16/17 at 16:30 Ondansetron HCl (Zofran) 4 mg PRN Q6HRS PRN IV NAUSEA/VOMITING Last administered on 01/18/17 11:52; Start 01/16/17 at 16:30 Morphine Sulfate 2 mg PRN Q2HR PRN IV PAIN Last administered on 01/17/17 20: 14; Start 01/16/17 at 16:30 Tramadol HCl (Ultram) 50 mg PRN Q6HRS PRN PO PAIN; Start 01/16/17 at 16:30 Hydralazine HCl (Apresoline Inj) 10 mg PRN Q4HRS PRN IVP ELEVATED BP, SEE COMMENTS; Start 01/16/17 at 16:30 Docusate Sodium (Colace) 100 mg PRN DAILY PRN PO CONSTIPATION; Start 01/16/17 at 16:30 Enoxaparin Sodium (Lovenox 40mg Syringe) 40 mg DAILY SQ Last administered on 08:32; Start 01/17/17 at 09:00 Propofol 20 ml @ As Directed STK-MED ONCE IV ; Start 01/17/17 at 09:30; Stop 01/17/17 at 09:31; Status DC Dexamethasone Sodium Phosphate (Decadron) 20 mg STK-MED ONCE .ROUTE ; Start at 09:30; Stop 01/17/17 at 09:31; Status DC Famotidine (Pepcid) 20 mg STK-MED ONCE .ROUTE ; Start 01/17/17 at 09:30; Stop 01/17/17 at 09:31; Status DC Lidocaine HCl (Lidocaine Pf 2% Vial) 5 ml STK-MED ONCE .ROUTE ; Start 01/17/17 at 09:30; Stop 01/17/17 at 09:31; Status DC Ondansetron HCl (Zofran) 4 mg STK-MED ONCE .ROUTE ; Start 01/17/17 at 09:30; Stop 01/17/17 at 09:31; Status DC Succinylcholine Chloride (Anectine) 200 mg STK-MED ONCE .ROUTE ; Start at 09:30; Stop 01/17/17 at 09:31; Status DC Iohexol (Omnipaque 300 Mg/ml) 50 ml STK-MED ONCE .ROUTE ; Start 01/17/17 at 09: 57; Stop 01/17/17 at 09:58; Status DC Iohexol (Omnipaque 300 Mg/ml) 50 ml STK-MED ONCE IV Last administered on 10:38; Start 01/17/17 at 10:38; Stop 01/17/17 at 10:53; Status DC Levofloxacin/ Dextrose 100 ml @ 100 mls/hr Q24H IV Last administered on 11:49; Start 01/17/17 at 12:00 Fentanyl Citrate (Fentanyl 2ml Vial) 25 mcg PRN Q5MIN PRN IV MILD PAIN; Start 01/17/17 at 11:30; Stop 01/17/17 at 16:13; Status DC Fentanyl Citrate (Fentanyl 2ml Vial) 50 mcg PRN Q5MIN PRN IV MODERATE PAIN; Start 01/17/17 at 11:30; Stop 01/17/17 at 16:13; Status DC Morphine Sulfate 1 mg PRN Q10MIN PRN IV SEVERE PAIN; Start 01/17/17 at 11:30; Stop 01/17/17 at 16:14; Status DC Ringer's Solution 1,000 ml @ 30 mls/hr Q24H IV ; Start 01/17/17 at 11:20; Stop 01/17/17 at 23:19; Status DC Lidocaine HCl (Xylocaine-Mpf 1% Vial) 2 ml 1X PRN PRN ID IV START; Start 01/17 at 11:30; Stop 01/17/17 at 16:14; Status DC Hydromorphone HCl (Dilaudid) 0.5 mg PRN Q10MIN PRN IV SEV PAIN, Second choice; Start 01/17/17 at 11:30; Stop 01/17/17 at 16:13; Status DC Prochlorperazine Edisylate (Compazine) 5 mg PACU PRN PRN IV NAUSEA, MRX1 Last administered on 01/17/17 12:44; Start 01/17/17 at 11:30; Stop 01/17/17 at 16 :14; Status DC Nicotine (Nicoderm Cq 21mg) 1 patch DAILY TD Last administered on 01/18/17 08 :28; Start 01/17/17 at 12:00 Gadobutrol (Gadavist) 6 mmol 1X ONCE IV Last administered on 01/17/17 15:03 ; Start 01/17/17 at 15:00; Stop 01/17/17 at 15:01; Status DC Acetaminophen (Tylenol) 500 mg PRN Q6HRS PRN PO PAIN; Start 01/17/17 at 21:00 Lactobacillus Rhamnosus (Culturelle) 1 cap BID PO Last administered on 08:25; Start 01/18/17 at 09:00 Docusate Sodium (Colace) 100 mg BID PO Last administered on 01/18/17 08:26; Start 01/17/17 at 21:00 Levetiracetam (Keppra) 500 mg BID PO Last administered on 01/18/17 08:25; Start 01/17/17 at 21:00 Olanzapine (ZyPREXA) 2.5 mg HS PO Last administered on 01/17/17 21:09; Start 01/17/17 at 21:00 Trazodone HCl (Desyrel) 50 mg HS PO Last administered on 01/17/17 21:07; Start 01/17/17 at 21:00 Calcium Carbonate/ Glycine (Tums) 500 mg PRN AFTMEALHC PRN PO INDIGESTION Last administered on 01/18/17 08:32; Start 01/17/17 at 21:15 Artificial Tears (Artificial Tears) 1 drop PRN Q1HR PRN OU DRY EYE; Start at 21:15 Citalopram Hydrobromide (CeleXA) 40 mg DAILY PO Last administered on 08:26; Start 01/18/17 at 09:00 Fluticasone Propionate (Flonase) 1 spray PRN DAILY PRN NS ALLERGIES; Start at 21:01; Stop 01/17/17 at 21:02; Status DC Losartan Potassium (Cozaar) 100 mg DAILY PO Last administered on 01/18/17 08: 29; Start 01/18/17 at 09:00 Magnesium Hydroxide (Milk Of Magnesia) 2,400 mg PRN DAILY PRN PO CONSTIPATION; Start 01/17/17 at 21:15 Non-Formulary Medication 15 gm PRN BID PRN TP RASH; Start 01/17/17 at 21:00; Status UNV Pantoprazole Sodium (Protonix) 40 mg DAILYAC PO Last administered on 08:25; Start 01/18/17 at 07:30 Diphenhydramine HCl (Benadryl) 25 mg PRN Q6HRS PRN PO ITCHING; Start 01/17/17 at 21:00 Fluticasone Propionate (Flonase) 1 spray PRN DAILY PRN NS ALLERGIES; Start at 21:15 Nystatin (Mycostatin) 1 jaci PRN DAILY PRN TP RASH; Start 01/17/17 at 21:15 Triamcinolone Acetonide (Kenalog) 1 jaci PRN DAILY PRN TP RASH; Start 01/17/17 at 21:15 Active Scripts Active Reported Nystatin-Triamcinolone Cream (Nystatin/Triamcin) 15 Gm Cream..g. 15 Gm TP PRN BID PRN Tylenol (Acetaminophen) 325 Mg Tablet 500 Mg PO PRN Q6HRS PRN Flonase Allergy Relief (Fluticasone Propionate) 9.9 Ml [place].susp 1 Sprays NS PRN DAILY PRN Tums (Calcium Carbonate) 300 Mg Tab.chew 300 Mg PO PRN Q1HR PRN Docusate Sodium 100 Mg Capsule 100 Mg PO BID Levetiracetam 500 Mg Tablet 500 Mg PO BID Olanzapine 5 Mg Tablet 2.5 Mg PO HS Trazodone Hcl 50 Mg Tablet 50 Mg PO HS Escitalopram Oxalate 10 Mg Tablet 30 Mg PO DAILY Losartan Potassium 100 Mg Tablet 100 Mg PO DAILY Omeprazole 40 Mg Capsule.dr 40 Mg PO DAILY Bacid Caplet (Acidoph/L.bulg/Bif.b/S.thermop) 1 Each Tablet 2 Each PO DAILY Simethicone 100 Ml Liquid 30 Ml MC PRN Q6HRS PRN Refresh Optive Eye Drops (Carboxymethylcellulos/Glycerin) 15 Ml Drops 15 Ml OP PRN Q1HR PRN Milk Of Magnesia (Magnesium Hydroxide) 2,400 Mg/10 Ml Oral.susp 2,400 Mg PO PRN DAILY PRN Vitals/I & O Vital Sign - Last 24 Hours 01/17/17 01/17/17 01/17/17 01/17/17 14:00 14:15 19:30 20:00 Temp 98.3 99.0 98.3 99.0 Pulse 64 77 108 Resp 18 18 B/P (MAP) 132/75 (94) 135/82 (99) 110/78 (89) Pulse Ox 97 99 O2 Delivery Room Air Room Air Room Air 01/17/17 01/17/17 01/17/17 01/18/17 20:14 20:44 23:48 03:30 Temp 98.6 98.2 98.6 98.2 Pulse 90 81 Resp 18 18 B/P (MAP) 101/76 (84) 117/72 (87) Pulse Ox 95 95 O2 Delivery Room Air Room Air Room Air Room Air 01/18/17 01/18/17 01/18/17 01/18/17 07:20 08:05 08:29 11:11 Temp 98.4 98.1 98.4 98.1 Pulse 88 88 80 Resp 19 18 B/P (MAP) 105/60 (75) 105/60 108/64 (79) Pulse Ox 95 95 O2 Delivery Room Air Room Air Room Air JOSELYN MENARD MD Jan 18, 2017 13:58
[2017-01-18 15:10] VITALS: BP 97/67
[2017-01-18] MEDS: MORPHINE SULFATE 2 MG/ML DISP.SYRIN. IV PRN ×2 (17:26→20:52)
[2017-01-18 19:41] VITALS: BP 119/78
[2017-01-18] MEDS: traZODone 50 MG TABLET. PO SCH (20:41)
[2017-01-18] MEDS: OLANZapine 2.5 MG TABLET PO SCH (20:41)
[2017-01-18 23:59] VITALS: BP 102/68
[2017-01-19 03:37] VITALS: BP 111/74
[2017-01-19 07:12] VITALS: BP 97/64
[2017-01-19] MEDS: CALCIUM CARBONATE 500 MG TAB.CHEW PO PRN ×3 (08:31→18:30)
[2017-01-19] MEDS: levETIRAcetam 500 MG TABLET PO SCH ×2 (08:31→21:13)
[2017-01-19] MEDS: CITALOPRAM 20 MG TABLET. PO SCH (08:31)
[2017-01-19] MEDS: NICOTINE 21MG PATCH. TD SCH (08:32)
[2017-01-19] MEDS: PANTOPRAZOLE 40 MG TABLET.DR. PO SCH (08:32)
[2017-01-19] MEDS: DOCUSATE SODIUM 100 MG CAPSULE. PO SCH ×2 (08:32→21:13)
[2017-01-19] MEDS: ENOXAPARIN 40 MG/0.4 ML SYRINGE. SQ SCH (08:36)
[2017-01-19] MEDS: LOSARTAN POTASSIUM 50 MG TABLET. PO SCH (08:36)
[2017-01-19] MEDS: MORPHINE SULFATE 2 MG/ML DISP.SYRIN. IV PRN (09:00)
--- NOTE | 2017-01-19 10:02 | PDOC ---
Provider Note Provider Note [id number] abnl ct of chest dyspnea, ? copd pancreas mass see orders BRIAN SMITH MD Jan 19, 2017 10:02
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
[2017-01-19 11:04] VITALS: BP 107/70
--- NOTE | 2017-01-19 11:07 | PDOC ---
PROGRESS NOTES Subjective Subjective No complaints, appears comfortable Objective Objective Vital Signs Date Time Temp Pulse Resp B/P (MAP) Pulse Ox O2 Delivery O2 Flow Rate FiO2 01/19/17 11:04 98.6 73 19 107/70 (82) 95 Room Air 98.6 01/18/17 17:26 10.0 Physical Exam Abdomen: Soft, No tenderness Heart: Regular rate Extremities: No clubbing, No cyanosis General: Alert, Oriented X3 HEENT: Atraumatic Lungs: Clear to auscultation Neuro: Normal speech Assessment Assessment Problems Medical Problems: (1) Abdominal pain Status: Acute (2) Jaundice Status: Acute (3) Pancreatic mass Status: Acute Plan Plan of Care Workup in progress, no new surgical recs at this time, Dr Ayoub to return tomorrow Comment Review of Relevant I have reviewed the following items regla (where applicable) has been applied. Labs Laboratory Tests Test 01/18/17 08:05 Haptoglobin 273 mg/dL (34-200) Microbiology 01/16/17 Urine Culture - Final, Complete 01/16/17 Urine Culture Result 1 (BESS) - Final, Complete Medications Current Medications Sodium Chloride 1,000 ml @ 1,000 mls/hr Q1H IV Last administered on 14:05; Start 01/16/17 at 13:37; Stop 01/16/17 at 14:36; Status DC Sodium Chloride (Normal Saline Flush) 10 ml QSHIFT PRN IV AFTER MEDS AND BLOOD DRAWS; Start 01/16/17 at 13:45 Ondansetron HCl (Zofran) 4 mg 1X ONCE IV Last administered on 01/16/17 14:04 ; Start 01/16/17 at 13:45; Stop 01/16/17 at 13:47; Status DC Ondansetron HCl (Zofran) 4 mg PRN Q8HRS PRN IV NAUSEA/VOMITING Last administered on 01/17/17 09:11; Start 01/16/17 at 16:15; Stop 01/17/17 at 16 :14; Status DC Fentanyl Citrate (Fentanyl 2ml Vial) 50 mcg PRN Q2HR PRN IV PAIN Last administered on 01/16/17 14:05; Start 01/16/17 at 16:15; Stop 01/17/17 at 16 :14; Status DC Sodium Chloride 1,000 ml @ 125 mls/hr Q8H IV Last administered on 01/17/17 12:31; Start 01/16/17 at 16:02; Stop 01/17/17 at 16:01; Status DC Acetaminophen (Tylenol) 650 mg PRN Q6HRS PRN PO FEVER; Start 01/16/17 at 16:30 ; Stop 01/18/17 at 15:22; Status DC Ondansetron HCl (Zofran) 4 mg PRN Q6HRS PRN IV NAUSEA/VOMITING Last administered on 01/18/17 17:26; Start 01/16/17 at 16:30 Morphine Sulfate 2 mg PRN Q2HR PRN IV PAIN Last administered on 01/19/17 09: 00; Start 01/16/17 at 16:30 Tramadol HCl (Ultram) 50 mg PRN Q6HRS PRN PO PAIN; Start 01/16/17 at 16:30 Hydralazine HCl (Apresoline Inj) 10 mg PRN Q4HRS PRN IVP ELEVATED BP, SEE COMMENTS; Start 01/16/17 at 16:30 Docusate Sodium (Colace) 100 mg PRN DAILY PRN PO CONSTIPATION; Start 01/16/17 at 16:30 Enoxaparin Sodium (Lovenox 40mg Syringe) 40 mg DAILY SQ Last administered on 08:36; Start 01/17/17 at 09:00 Propofol 20 ml @ As Directed STK-MED ONCE IV ; Start 01/17/17 at 09:30; Stop 01/17/17 at 09:31; Status DC Dexamethasone Sodium Phosphate (Decadron) 20 mg STK-MED ONCE .ROUTE ; Start at 09:30; Stop 01/17/17 at 09:31; Status DC Famotidine (Pepcid) 20 mg STK-MED ONCE .ROUTE ; Start 01/17/17 at 09:30; Stop 01/17/17 at 09:31; Status DC Lidocaine HCl (Lidocaine Pf 2% Vial) 5 ml STK-MED ONCE .ROUTE ; Start 01/17/17 at 09:30; Stop 01/17/17 at 09:31; Status DC Ondansetron HCl (Zofran) 4 mg STK-MED ONCE .ROUTE ; Start 01/17/17 at 09:30; Stop 01/17/17 at 09:31; Status DC Succinylcholine Chloride (Anectine) 200 mg STK-MED ONCE .ROUTE ; Start at 09:30; Stop 01/17/17 at 09:31; Status DC Iohexol (Omnipaque 300 Mg/ml) 50 ml STK-MED ONCE .ROUTE ; Start 01/17/17 at 09: 57; Stop 01/17/17 at 09:58; Status DC Iohexol (Omnipaque 300 Mg/ml) 50 ml STK-MED ONCE IV Last administered on t 10:38; Start 01/17/17 at 10:38; Stop 01/17/17 at 10:53; Status DC Levofloxacin/ Dextrose 100 ml @ 100 mls/hr Q24H IV Last administered on t 11:49; Start 01/17/17 at 12:00 Fentanyl Citrate (Fentanyl 2ml Vial) 25 mcg PRN Q5MIN PRN IV MILD PAIN; Start 01/17/17 at 11:30; Stop 01/17/17 at 16:13; Status DC Fentanyl Citrate (Fentanyl 2ml Vial) 50 mcg PRN Q5MIN PRN IV MODERATE PAIN; Start 01/17/17 at 11:30; Stop 01/17/17 at 16:13; Status DC Morphine Sulfate 1 mg PRN Q10MIN PRN IV SEVERE PAIN; Start 01/17/17 at 11:30; Stop 01/17/17 at 16:14; Status DC Ringer's Solution 1,000 ml @ 30 mls/hr Q24H IV ; Start 01/17/17 at 11:20; Stop 01/17/17 at 23:19; Status DC Lidocaine HCl (Xylocaine-Mpf 1% Vial) 2 ml 1X PRN PRN ID IV START; Start 01/17 at 11:30; Stop 01/17/17 at 16:14; Status DC Hydromorphone HCl (Dilaudid) 0.5 mg PRN Q10MIN PRN IV SEV PAIN, Second choice; Start 01/17/17 at 11:30; Stop 01/17/17 at 16:13; Status DC Prochlorperazine Edisylate (Compazine) 5 mg PACU PRN PRN IV NAUSEA, MRX1 Last administered on 01/17/17 12:44; Start 01/17/17 at 11:30; Stop 01/17/17 at 16 :14; Status DC Nicotine (Nicoderm Cq 21mg) 1 patch DAILY TD Last administered on 01/19/17 08 :32; Start 01/17/17 at 12:00 Gadobutrol (Gadavist) 6 mmol 1X ONCE IV Last administered on 01/17/17 15:03 ; Start 01/17/17 at 15:00; Stop 01/17/17 at 15:01; Status DC Acetaminophen (Tylenol) 500 mg PRN Q6HRS PRN PO PAIN; Start 01/17/17 at 21:00 Lactobacillus Rhamnosus (Culturelle) 1 cap BID PO Last administered on 20:41; Start 01/18/17 at 09:00; Stop 01/19/17 at 07:55; Status DC Docusate Sodium (Colace) 100 mg BID PO Last administered on 01/19/17 08:32; Start 01/17/17 at 21:00 Levetiracetam (Keppra) 500 mg BID PO Last administered on 01/19/17 08:31; Start 01/17/17 at 21:00 Olanzapine (ZyPREXA) 2.5 mg HS PO Last administered on 01/18/17 20:41; Start 01/17/17 at 21:00 Trazodone HCl (Desyrel) 50 mg HS PO Last administered on 01/18/17 20:41; Start 01/17/17 at 21:00 Calcium Carbonate/ Glycine (Tums) 500 mg PRN AFTMEALHC PRN PO INDIGESTION Last administered on 01/19/17 08:31; Start 01/17/17 at 21:15 Artificial Tears (Artificial Tears) 1 drop PRN Q1HR PRN OU DRY EYE; Start at 21:15 Citalopram Hydrobromide (CeleXA) 40 mg DAILY PO Last administered on 08:31; Start 01/18/17 at 09:00 Fluticasone Propionate (Flonase) 1 spray PRN DAILY PRN NS ALLERGIES; Start at 21:01; Stop 01/17/17 at 21:02; Status DC Losartan Potassium (Cozaar) 100 mg DAILY PO Last administered on 01/18/17 08: 29; Start 01/18/17 at 09:00 Magnesium Hydroxide (Milk Of Magnesia) 2,400 mg PRN DAILY PRN PO CONSTIPATION Last administered on 01/19/17 08:32; Start 01/17/17 at 21:15 Non-Formulary Medication 15 gm PRN BID PRN TP RASH; Start 01/17/17 at 21:00; Status UNV Pantoprazole Sodium (Protonix) 40 mg DAILYAC PO Last administered on 08:32; Start 01/18/17 at 07:30 Diphenhydramine HCl (Benadryl) 25 mg PRN Q6HRS PRN PO ITCHING; Start 01/17/17 at 21:00 Fluticasone Propionate (Flonase) 1 spray PRN DAILY PRN NS ALLERGIES; Start at 21:15 Nystatin (Mycostatin) 1 jaci PRN DAILY PRN TP RASH; Start 01/17/17 at 21:15 Triamcinolone Acetonide (Kenalog) 1 jaci PRN DAILY PRN TP RASH; Start 01/17/17 at 21:15 Lactobacillus Rhamnosus (Culturelle) 1 cap BID PO ; Start 01/20/17 at 21:00 Albuterol/ Ipratropium (Duoneb) 3 ml RTQID NEB ; Start 01/19/17 at 12:00 Active Scripts Active Reported Nystatin-Triamcinolone Cream (Nystatin/Triamcin) 15 Gm Cream..g. 15 Gm TP PRN BID PRN Tylenol (Acetaminophen) 325 Mg Tablet 500 Mg PO PRN Q6HRS PRN Flonase Allergy Relief (Fluticasone Propionate) 9.9 Ml [place].susp 1 Sprays NS PRN DAILY PRN Tums (Calcium Carbonate) 300 Mg Tab.chew 300 Mg PO PRN Q1HR PRN Docusate Sodium 100 Mg Capsule 100 Mg PO BID Levetiracetam 500 Mg Tablet 500 Mg PO BID Olanzapine 5 Mg Tablet 2.5 Mg PO HS Trazodone Hcl 50 Mg Tablet 50 Mg PO HS Escitalopram Oxalate 10 Mg Tablet 30 Mg PO DAILY Losartan Potassium 100 Mg Tablet 100 Mg PO DAILY Omeprazole 40 Mg Capsule.dr 40 Mg PO DAILY Bacid Caplet (Acidoph/L.bulg/Bif.b/S.thermop) 1 Each Tablet 2 Each PO DAILY Simethicone 100 Ml Liquid 30 Ml MC PRN Q6HRS PRN Refresh Optive Eye Drops (Carboxymethylcellulos/Glycerin) 15 Ml Drops 15 Ml OP PRN Q1HR PRN Milk Of Magnesia (Magnesium Hydroxide) 2,400 Mg/10 Ml Oral.susp 2,400 Mg PO PRN DAILY PRN Vitals/I & O Vital Sign - Last 24 Hours 01/18/17 01/18/17 01/18/17 01/18/17 11:11 15:10 17:26 19:41 Temp 98.1 98.6 98.3 98.1 98.6 98.3 Pulse 80 83 73 Resp 18 20 16 18 B/P (MAP) 108/64 (79) 97/67 (77) 119/78 (92) Pulse Ox 95 95 95 96 O2 Delivery Room Air Room Air Room Air Room Air O2 Flow Rate 10.0 01/18/17 01/18/17 01/18/17 01/19/17 20:00 20:52 23:59 03:37 Temp 97.5 97.7 97.5 97.7 Pulse 71 63 Resp 18 18 16 B/P (MAP) 102/68 (79) 111/74 (86) Pulse Ox 95 95 O2 Delivery Room Air Room Air Room Air Room Air 01/19/17 01/19/17 01/19/17 01/19/17 07:12 08:20 09:00 09:30 Temp 97.8 97.8 Pulse 74 Resp 18 16 16 B/P (MAP) 97/64 (75) Pulse Ox 95 95 95 O2 Delivery Room Air Room Air Room Air Room Air 01/19/17 11:04 Temp 98.6 98.6 Pulse 73 Resp 19 B/P (MAP) 107/70 (82) Pulse Ox 95 O2 Delivery Room Air JOSELYN MENARD MD Jan 19, 2017 11:07
[2017-01-19] MEDS: IPRATRPIUM/ALBUTEROL 0.5/2.5MG 3 ML NEBU. NEB SCH ×3 (11:49→20:02)
--- NOTE | 2017-01-19 12:23 | PDOC ---
GI PROGRESS NOTES Date Date/Time DATE: 01/19/17 TIME: 12:22 Objective Vitals Vital Signs Date Time Temp Pulse Resp B/P (MAP) Pulse Ox O2 Delivery O2 Flow Rate FiO2 01/19/17 11:53 94 Room Air 01/19/17 11:04 98.6 73 19 107/70 (82) 95 Room Air 98.6 01/19/17 09:30 16 95 Room Air 01/19/17 09:00 16 95 Room Air 01/19/17 08:20 Room Air 01/19/17 07:12 97.8 74 18 97/64 (75) 95 Room Air 97.8 01/19/17 03:37 97.7 63 16 111/74 (86) 95 Room Air 97.7 01/18/17 23:59 97.5 71 18 102/68 (79) 95 Room Air 97.5 01/18/17 20:52 18 Room Air 01/18/17 20:00 Room Air 01/18/17 19:41 98.3 73 18 119/78 (92) 96 Room Air 98.3 01/18/17 17:26 16 95 Room Air 10.0 01/18/17 15:10 98.6 83 20 97/67 (77) 95 Room Air 98.6 Physical Exam Physical Exam VSS mild icteric abd- soft non tender good bowel sounds Assessment Assessment Pancreatic mass with biliary obstruction- ERCP with unsuccessful stent attempt Friday- NO evidence for cholangitis or other complication today Stable today Plan- PTHC is planned Problems: STACY ROSE MD Jan 19, 2017 12:23
[2017-01-19 14:23] VITALS: BP 117/68
[2017-01-19] MEDS: ONDANSETRON PF 4 MG/2 ML VIAL. IV PRN (14:27)
--- NOTE | 2017-01-19 15:34 | PDOC ---
PROGRESS NOTES Chief Complaint Chief Complaint h/o dementia, acute metabolic encephalopathy w. delirium on admit one 2.6cm pancreatic mass, consider pancreatic cancer multiple lung nodules, need to rule out mets h/o dementia, not sure baseline or if recent brain injury? jaundice with elevated transaminitis previous heavy drinker. EtOH abuse GERD HTN from rehab bipolar disorder, wheelchair bound, walks with a walker History of Present Illness History of Present Illness gi consult following, Stent from ERCP unsuccessful consider pancreatic cancer check chest CT, brain MRI Hepatitis panel, CA19-9, CEA pending plan DC for outpatient f.u Vitals Vitals Vital Signs Date Time Temp Pulse Resp B/P (MAP) Pulse Ox O2 Delivery O2 Flow Rate FiO2 01/19/17 14:23 98.9 71 18 117/68 (84) 95 Room Air 98.9 01/18/17 17:26 10.0 Physical Exam General: Alert, Oriented X3 Heart: Regular rate Lungs: Other (dull bases, mod volume) Abdomen: Soft, No tenderness Extremities: No clubbing, No cyanosis Skin: No breakdown, No significant lesion Review of Systems Review of Systems no n.vd.' Assessment and Plan Assessmemt and Plan Problems Medical Problems: (1) Abdominal pain Status: Acute (2) Jaundice Status: Acute (3) Pancreatic mass Status: Acute Problems: Comment Review of Relevant I have reviewed the following items regla (where applicable) has been applied. Labs Laboratory Tests Test 01/18/17 08:05 Haptoglobin 273 mg/dL (34-200) Microbiology 01/16/17 Urine Culture - Final, Complete 01/16/17 Urine Culture Result 1 (BESS) - Final, Complete Medications Current Medications Sodium Chloride 1,000 ml @ 1,000 mls/hr Q1H IV Last administered on 14:05; Start 01/16/17 at 13:37; Stop 01/16/17 at 14:36; Status DC Sodium Chloride (Normal Saline Flush) 10 ml QSHIFT PRN IV AFTER MEDS AND BLOOD DRAWS; Start 01/16/17 at 13:45 Ondansetron HCl (Zofran) 4 mg 1X ONCE IV Last administered on 01/16/17 14:04 ; Start 01/16/17 at 13:45; Stop 01/16/17 at 13:47; Status DC Ondansetron HCl (Zofran) 4 mg PRN Q8HRS PRN IV NAUSEA/VOMITING Last administered on 01/17/17 09:11; Start 01/16/17 at 16:15; Stop 01/17/17 at 16 :14; Status DC Fentanyl Citrate (Fentanyl 2ml Vial) 50 mcg PRN Q2HR PRN IV PAIN Last administered on 01/16/17 14:05; Start 01/16/17 at 16:15; Stop 01/17/17 at 16 :14; Status DC Sodium Chloride 1,000 ml @ 125 mls/hr Q8H IV Last administered on 01/17/17 12:31; Start 01/16/17 at 16:02; Stop 01/17/17 at 16:01; Status DC Acetaminophen (Tylenol) 650 mg PRN Q6HRS PRN PO FEVER; Start 01/16/17 at 16:30 ; Stop 01/18/17 at 15:22; Status DC Ondansetron HCl (Zofran) 4 mg PRN Q6HRS PRN IV NAUSEA/VOMITING Last administered on 01/19/17 14:27; Start 01/16/17 at 16:30 Morphine Sulfate 2 mg PRN Q2HR PRN IV PAIN Last administered on 01/19/17 09: 00; Start 01/16/17 at 16:30 Tramadol HCl (Ultram) 50 mg PRN Q6HRS PRN PO PAIN; Start 01/16/17 at 16:30 Hydralazine HCl (Apresoline Inj) 10 mg PRN Q4HRS PRN IVP ELEVATED BP, SEE COMMENTS; Start 01/16/17 at 16:30 Docusate Sodium (Colace) 100 mg PRN DAILY PRN PO CONSTIPATION; Start 01/16/17 at 16:30 Enoxaparin Sodium (Lovenox 40mg Syringe) 40 mg DAILY SQ Last administered on 08:36; Start 01/17/17 at 09:00 Propofol 20 ml @ As Directed STK-MED ONCE IV ; Start 01/17/17 at 09:30; Stop 01/17/17 at 09:31; Status DC Dexamethasone Sodium Phosphate (Decadron) 20 mg STK-MED ONCE .ROUTE ; Start at 09:30; Stop 01/17/17 at 09:31; Status DC Famotidine (Pepcid) 20 mg STK-MED ONCE .ROUTE ; Start 01/17/17 at 09:30; Stop 01/17/17 at 09:31; Status DC Lidocaine HCl (Lidocaine Pf 2% Vial) 5 ml STK-MED ONCE .ROUTE ; Start 01/17/17 at 09:30; Stop 01/17/17 at 09:31; Status DC Ondansetron HCl (Zofran) 4 mg STK-MED ONCE .ROUTE ; Start 01/17/17 at 09:30; Stop 01/17/17 at 09:31; Status DC Succinylcholine Chloride (Anectine) 200 mg STK-MED ONCE .ROUTE ; Start at 09:30; Stop 01/17/17 at 09:31; Status DC Iohexol (Omnipaque 300 Mg/ml) 50 ml STK-MED ONCE .ROUTE ; Start 01/17/17 at 09: 57; Stop 01/17/17 at 09:58; Status DC Iohexol (Omnipaque 300 Mg/ml) 50 ml STK-MED ONCE IV Last administered on t 10:38; Start 01/17/17 at 10:38; Stop 01/17/17 at 10:53; Status DC Levofloxacin/ Dextrose 100 ml @ 100 mls/hr Q24H IV Last administered on t 11:12; Start 01/17/17 at 12:00 Fentanyl Citrate (Fentanyl 2ml Vial) 25 mcg PRN Q5MIN PRN IV MILD PAIN; Start 01/17/17 at 11:30; Stop 01/17/17 at 16:13; Status DC Fentanyl Citrate (Fentanyl 2ml Vial) 50 mcg PRN Q5MIN PRN IV MODERATE PAIN; Start 01/17/17 at 11:30; Stop 01/17/17 at 16:13; Status DC Morphine Sulfate 1 mg PRN Q10MIN PRN IV SEVERE PAIN; Start 01/17/17 at 11:30; Stop 01/17/17 at 16:14; Status DC Ringer's Solution 1,000 ml @ 30 mls/hr Q24H IV ; Start 01/17/17 at 11:20; Stop 01/17/17 at 23:19; Status DC Lidocaine HCl (Xylocaine-Mpf 1% Vial) 2 ml 1X PRN PRN ID IV START; Start 01/17 at 11:30; Stop 01/17/17 at 16:14; Status DC Hydromorphone HCl (Dilaudid) 0.5 mg PRN Q10MIN PRN IV SEV PAIN, Second choice; Start 01/17/17 at 11:30; Stop 01/17/17 at 16:13; Status DC Prochlorperazine Edisylate (Compazine) 5 mg PACU PRN PRN IV NAUSEA, MRX1 Last administered on 01/17/17 12:44; Start 01/17/17 at 11:30; Stop 01/17/17 at 16 :14; Status DC Nicotine (Nicoderm Cq 21mg) 1 patch DAILY TD Last administered on 01/19/17 08 :32; Start 01/17/17 at 12:00 Gadobutrol (Gadavist) 6 mmol 1X ONCE IV Last administered on 01/17/17 15:03 ; Start 01/17/17 at 15:00; Stop 01/17/17 at 15:01; Status DC Acetaminophen (Tylenol) 500 mg PRN Q6HRS PRN PO PAIN; Start 01/17/17 at 21:00 Lactobacillus Rhamnosus (Culturelle) 1 cap BID PO Last administered on 20:41; Start 01/18/17 at 09:00; Stop 01/19/17 at 07:55; Status DC Docusate Sodium (Colace) 100 mg BID PO Last administered on 01/19/17 08:32; Start 01/17/17 at 21:00 Levetiracetam (Keppra) 500 mg BID PO Last administered on 01/19/17 08:31; Start 01/17/17 at 21:00 Olanzapine (ZyPREXA) 2.5 mg HS PO Last administered on 01/18/17 20:41; Start 01/17/17 at 21:00 Trazodone HCl (Desyrel) 50 mg HS PO Last administered on 01/18/17 20:41; Start 01/17/17 at 21:00 Calcium Carbonate/ Glycine (Tums) 500 mg PRN AFTMEALHC PRN PO INDIGESTION Last administered on 01/19/17 14:27; Start 01/17/17 at 21:15 Artificial Tears (Artificial Tears) 1 drop PRN Q1HR PRN OU DRY EYE; Start at 21:15 Citalopram Hydrobromide (CeleXA) 40 mg DAILY PO Last administered on 08:31; Start 01/18/17 at 09:00 Fluticasone Propionate (Flonase) 1 spray PRN DAILY PRN NS ALLERGIES; Start at 21:01; Stop 01/17/17 at 21:02; Status DC Losartan Potassium (Cozaar) 100 mg DAILY PO Last administered on 01/18/17 08: 29; Start 01/18/17 at 09:00 Magnesium Hydroxide (Milk Of Magnesia) 2,400 mg PRN DAILY PRN PO CONSTIPATION Last administered on 01/19/17 08:32; Start 01/17/17 at 21:15 Non-Formulary Medication 15 gm PRN BID PRN TP RASH; Start 01/17/17 at 21:00; Status UNV Pantoprazole Sodium (Protonix) 40 mg DAILYAC PO Last administered on 08:32; Start 01/18/17 at 07:30 Diphenhydramine HCl (Benadryl) 25 mg PRN Q6HRS PRN PO ITCHING; Start 01/17/17 at 21:00 Fluticasone Propionate (Flonase) 1 spray PRN DAILY PRN NS ALLERGIES; Start at 21:15 Nystatin (Mycostatin) 1 jaci PRN DAILY PRN TP RASH; Start 01/17/17 at 21:15 Triamcinolone Acetonide (Kenalog) 1 jaci PRN DAILY PRN TP RASH; Start 01/17/17 at 21:15 Lactobacillus Rhamnosus (Culturelle) 1 cap BID PO ; Start 01/20/17 at 21:00 Albuterol/ Ipratropium (Duoneb) 3 ml RTQID NEB Last administered on 01/19/17 11:49; Start 01/19/17 at 12:00 Active Scripts Active Reported Nystatin-Triamcinolone Cream (Nystatin/Triamcin) 15 Gm Cream..g. 15 Gm TP PRN BID PRN Tylenol (Acetaminophen) 325 Mg Tablet 500 Mg PO PRN Q6HRS PRN Flonase Allergy Relief (Fluticasone Propionate) 9.9 Ml [place].susp 1 Sprays NS PRN DAILY PRN Tums (Calcium Carbonate) 300 Mg Tab.chew 300 Mg PO PRN Q1HR PRN Docusate Sodium 100 Mg Capsule 100 Mg PO BID Levetiracetam 500 Mg Tablet 500 Mg PO BID Olanzapine 5 Mg Tablet 2.5 Mg PO HS Trazodone Hcl 50 Mg Tablet 50 Mg PO HS Escitalopram Oxalate 10 Mg Tablet 30 Mg PO DAILY Losartan Potassium 100 Mg Tablet 100 Mg PO DAILY Omeprazole 40 Mg Capsule.dr 40 Mg PO DAILY Bacid Caplet (Acidoph/L.bulg/Bif.b/S.thermop) 1 Each Tablet 2 Each PO DAILY Simethicone 100 Ml Liquid 30 Ml MC PRN Q6HRS PRN Refresh Optive Eye Drops (Carboxymethylcellulos/Glycerin) 15 Ml Drops 15 Ml OP PRN Q1HR PRN Milk Of Magnesia (Magnesium Hydroxide) 2,400 Mg/10 Ml Oral.susp 2,400 Mg PO PRN DAILY PRN Vitals/I & O Vital Sign - Last 24 Hours 01/18/17 01/18/17 01/18/17 01/18/17 17:26 19:41 20:00 20:52 Temp 98.3 98.3 Pulse 73 Resp 16 18 18 B/P (MAP) 119/78 (92) Pulse Ox 95 96 O2 Delivery Room Air Room Air Room Air Room Air O2 Flow Rate 10.0 01/18/17 01/19/17 01/19/17 01/19/17 23:59 03:37 07:12 08:20 Temp 97.5 97.7 97.8 97.5 97.7 97.8 Pulse 71 63 74 Resp 18 16 18 B/P (MAP) 102/68 (79) 111/74 (86) 97/64 (75) Pulse Ox 95 95 95 O2 Delivery Room Air Room Air Room Air Room Air 01/19/17 01/19/17 01/19/17 01/19/17 09:00 09:30 11:04 11:53 Temp 98.6 98.6 Pulse 73 Resp 16 16 19 B/P (MAP) 107/70 (82) Pulse Ox 95 95 95 94 O2 Delivery Room Air Room Air Room Air Room Air 01/19/17 14:23 Temp 98.9 98.9 Pulse 71 Resp 18 B/P (MAP) 117/68 (84) Pulse Ox 95 O2 Delivery Room Air RICARDO MERRILL MD Jan 19, 2017 15:33
[2017-01-19 19:53] VITALS: BP 114/73
[2017-01-19] MEDS ORDERED: PROCHLORPERAZINE 5 MG TABLET. PO PRN (20:00)
[2017-01-19] MEDS: traZODone 50 MG TABLET. PO SCH (21:12)
[2017-01-19] MEDS: OLANZapine 2.5 MG TABLET PO SCH (21:13)
[2017-01-19 23:17] VITALS: BP 103/69
[2017-01-20 03:09] VITALS: BP 104/62
[2017-01-20] MEDS: PANTOPRAZOLE 40 MG TABLET.DR. PO SCH (07:30)
[2017-01-20 07:46] VITALS: BP 138/62
[2017-01-20] MEDS: IPRATRPIUM/ALBUTEROL 0.5/2.5MG 3 ML NEBU. NEB SCH ×4 (08:03→19:29)
[2017-01-20] MEDS: CITALOPRAM 20 MG TABLET. PO SCH (09:00)
[2017-01-20] MEDS: DOCUSATE SODIUM 100 MG CAPSULE. PO SCH ×2 (09:00→20:01)
[2017-01-20] MEDS: levETIRAcetam 500 MG TABLET PO SCH ×2 (09:00→20:01)
[2017-01-20] MEDS: NICOTINE 21MG PATCH. TD SCH (09:00)
[2017-01-20] MEDS: LOSARTAN POTASSIUM 50 MG TABLET. PO SCH (09:00)
[2017-01-20] MEDS: ENOXAPARIN 40 MG/0.4 ML SYRINGE. SQ SCH (09:00)
[2017-01-20] MEDS ORDERED: IOHEXOL 300 MG/ML 75 ML VIAL IV ONE (09:45)
--- NOTE | 2017-01-20 09:53 | PDOC ---
EUGENIO HERNANDEZ APRN 01/20/17 0953: SURGICAL PROGRESS NOTE Subjective nausea pain mild Vital Signs Vital Signs Date Time Temp Pulse Resp B/P (MAP) Pulse Ox O2 Delivery O2 Flow Rate FiO2 01/20/17 08:05 93 Room Air 01/20/17 07:46 98.6 77 18 138/62 (87) 98.6 General: Cooperative, No acute distress Abdomen: Soft, Other (mild tenderness upper abdomen) Problem List Problems Medical Problems: (1) Abdominal pain Status: Acute (2) Jaundice Status: Acute (3) Pancreatic mass Status: Acute Assessment/Plan PTHC is planned Problems: REJI PERALTA MD 01/20/17 1504: SURGICAL PROGRESS NOTE Assessment/Plan Pt seen and examined Agree with Ms. Hernandez's note Pt reports feeling better while not eating abd soft icteric sclera agree with PTHC would consider resection if no mets identified or if need for palliative bypass Problems: EUGENIO HERNANDEZ APRN Jan 20, 2017 09:53 REJI PERALTA MD Jan 20, 2017 15:04
--- NOTE | 2017-01-20 09:59 | PDOC ---
Subjective: Subjective: LLQ discomfort. Asks what his pancreas does. Objective: Objective: No stools charted. 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 Anticipate safe & efficient intake for nutrition and meds. Low risk of aspiration per this assessment. RECOMMENDATIONS: Regular diet w/thin liquids. General precautions. No additional CONDUIT REAMER OPERATOR f/u indicated at this time. Chest CT IMPRESSION: 1. Opacities in the lung bases are mostly flat or contiguous with atelectasis/ scarring and a post inflammatory process is favored. Attention on ongoing follow -up is recommended to exclude metastatic disease. 2. Refer to the abdominal CT for description of a pancreatic mass, surrounding adenopathy, and biliary dilatation. Brain MRI IMPRESSION: 1. No acute intracranial findings. Negative for acute infarct. 2. No evidence of metastatic disease. 3. 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 PE: GEN: NAD LUNGS: decreased HEART: RRR ABD: some discomfort - seems mostly lower, soft NEURO/PSYCH: awake/alert, probably a little confused A/P: Pancreatic mass, biliary obstruction -stent attempt w/ ERCP unsuccessful last week -on Levofloxacin -Hep panel neg, CA19-9 pending -surgery following -- D/w RN - NPO for ?PTCA Will recheck labs, add Miralax. JAYY ALMENDAREZ Jan 20, 2017 09:59
[2017-01-20] MEDS ORDERED: POLYETHYLENE GLYCOL 3350 17 GM PACKET. PO PRN (10:00)
--- NOTE | 2017-01-20 10:11 | PDOC ---
PROGRESS NOTES Chief Complaint Chief Complaint h/o dementia, acute metabolic encephalopathy w. delirium on admit one 2.6cm pancreatic mass, consider pancreatic cancer multiple lung nodules, need to rule out mets h/o dementia, not sure baseline or if recent brain injury? jaundice with elevated transaminitis previous heavy drinker. EtOH abuse GERD HTN from rehab bipolar disorder, wheelchair bound, walks with a walker History of Present Illness History of Present Illness gi consult following, Stent from ERCP unsuccessful consider pancreatic cancer IR consulted, may benefit from Percutaneous transhepatic cholangiography Hepatitis panel, CA19-9, CEA pending Vitals Vitals Vital Signs Date Time Temp Pulse Resp B/P (MAP) Pulse Ox O2 Delivery O2 Flow Rate FiO2 01/20/17 08:05 93 Room Air 01/20/17 07:46 98.6 77 18 138/62 (87) 98.6 Physical Exam General: Cooperative, No acute distress Heart: Regular rate Lungs: Other (dull bases, mod volume) Abdomen: Soft, Other (mild tenderness upper abdomen) Extremities: No clubbing, No cyanosis Skin: No breakdown, No significant lesion Assessment and Plan Assessmemt and Plan Problems Medical Problems: (1) Abdominal pain Status: Acute (2) Jaundice Status: Acute (3) Pancreatic mass Status: Acute Problems: Comment Review of Relevant I have reviewed the following items regla (where applicable) has been applied. Labs Microbiology 01/16/17 Urine Culture - Final, Complete 01/16/17 Urine Culture Result 1 (BESS) - Final, Complete Medications Current Medications Sodium Chloride 1,000 ml @ 1,000 mls/hr Q1H IV Last administered on 14:05; Start 01/16/17 at 13:37; Stop 01/16/17 at 14:36; Status DC Sodium Chloride (Normal Saline Flush) 10 ml QSHIFT PRN IV AFTER MEDS AND BLOOD DRAWS; Start 01/16/17 at 13:45 Ondansetron HCl (Zofran) 4 mg 1X ONCE IV Last administered on 01/16/17 14:04 ; Start 01/16/17 at 13:45; Stop 01/16/17 at 13:47; Status DC Ondansetron HCl (Zofran) 4 mg PRN Q8HRS PRN IV NAUSEA/VOMITING Last administered on 01/17/17 09:11; Start 01/16/17 at 16:15; Stop 01/17/17 at 16 :14; Status DC Fentanyl Citrate (Fentanyl 2ml Vial) 50 mcg PRN Q2HR PRN IV PAIN Last administered on 01/16/17 14:05; Start 01/16/17 at 16:15; Stop 01/17/17 at 16 :14; Status DC Sodium Chloride 1,000 ml @ 125 mls/hr Q8H IV Last administered on 01/17/17 12:31; Start 01/16/17 at 16:02; Stop 01/17/17 at 16:01; Status DC Acetaminophen (Tylenol) 650 mg PRN Q6HRS PRN PO FEVER; Start 01/16/17 at 16:30 ; Stop 01/18/17 at 15:22; Status DC Ondansetron HCl (Zofran) 4 mg PRN Q6HRS PRN IV NAUSEA/VOMITING Last administered on 01/19/17 14:27; Start 01/16/17 at 16:30 Morphine Sulfate 2 mg PRN Q2HR PRN IV PAIN Last administered on 01/19/17 09: 00; Start 01/16/17 at 16:30 Tramadol HCl (Ultram) 50 mg PRN Q6HRS PRN PO PAIN; Start 01/16/17 at 16:30 Hydralazine HCl (Apresoline Inj) 10 mg PRN Q4HRS PRN IVP ELEVATED BP, SEE COMMENTS; Start 01/16/17 at 16:30 Docusate Sodium (Colace) 100 mg PRN DAILY PRN PO CONSTIPATION; Start 01/16/17 at 16:30 Enoxaparin Sodium (Lovenox 40mg Syringe) 40 mg DAILY SQ Last administered on 08:36; Start 01/17/17 at 09:00 Propofol 20 ml @ As Directed STK-MED ONCE IV ; Start 01/17/17 at 09:30; Stop 01/17/17 at 09:31; Status DC Dexamethasone Sodium Phosphate (Decadron) 20 mg STK-MED ONCE .ROUTE ; Start at 09:30; Stop 01/17/17 at 09:31; Status DC Famotidine (Pepcid) 20 mg STK-MED ONCE .ROUTE ; Start 01/17/17 at 09:30; Stop 01/17/17 at 09:31; Status DC Lidocaine HCl (Lidocaine Pf 2% Vial) 5 ml STK-MED ONCE .ROUTE ; Start 01/17/17 at 09:30; Stop 01/17/17 at 09:31; Status DC Ondansetron HCl (Zofran) 4 mg STK-MED ONCE .ROUTE ; Start 01/17/17 at 09:30; Stop 01/17/17 at 09:31; Status DC Succinylcholine Chloride (Anectine) 200 mg STK-MED ONCE .ROUTE ; Start at 09:30; Stop 01/17/17 at 09:31; Status DC Iohexol (Omnipaque 300 Mg/ml) 50 ml STK-MED ONCE .ROUTE ; Start 01/17/17 at 09: 57; Stop 01/17/17 at 09:58; Status DC Iohexol (Omnipaque 300 Mg/ml) 50 ml STK-MED ONCE IV Last administered on t 10:38; Start 01/17/17 at 10:38; Stop 01/17/17 at 10:53; Status DC Levofloxacin/ Dextrose 100 ml @ 100 mls/hr Q24H IV Last administered on t 11:12; Start 01/17/17 at 12:00 Fentanyl Citrate (Fentanyl 2ml Vial) 25 mcg PRN Q5MIN PRN IV MILD PAIN; Start 01/17/17 at 11:30; Stop 01/17/17 at 16:13; Status DC Fentanyl Citrate (Fentanyl 2ml Vial) 50 mcg PRN Q5MIN PRN IV MODERATE PAIN; Start 01/17/17 at 11:30; Stop 01/17/17 at 16:13; Status DC Morphine Sulfate 1 mg PRN Q10MIN PRN IV SEVERE PAIN; Start 01/17/17 at 11:30; Stop 01/17/17 at 16:14; Status DC Ringer's Solution 1,000 ml @ 30 mls/hr Q24H IV ; Start 01/17/17 at 11:20; Stop 01/17/17 at 23:19; Status DC Lidocaine HCl (Xylocaine-Mpf 1% Vial) 2 ml 1X PRN PRN ID IV START; Start 01/17 at 11:30; Stop 01/17/17 at 16:14; Status DC Hydromorphone HCl (Dilaudid) 0.5 mg PRN Q10MIN PRN IV SEV PAIN, Second choice; Start 01/17/17 at 11:30; Stop 01/17/17 at 16:13; Status DC Prochlorperazine Edisylate (Compazine) 5 mg PACU PRN PRN IV NAUSEA, MRX1 Last administered on 01/17/17 12:44; Start 01/17/17 at 11:30; Stop 01/17/17 at 16 :14; Status DC Nicotine (Nicoderm Cq 21mg) 1 patch DAILY TD Last administered on 01/19/17 08 :32; Start 01/17/17 at 12:00 Gadobutrol (Gadavist) 6 mmol 1X ONCE IV Last administered on 01/17/17 15:03 ; Start 01/17/17 at 15:00; Stop 01/17/17 at 15:01; Status DC Acetaminophen (Tylenol) 500 mg PRN Q6HRS PRN PO PAIN; Start 01/17/17 at 21:00 Lactobacillus Rhamnosus (Culturelle) 1 cap BID PO Last administered on 20:41; Start 01/18/17 at 09:00; Stop 01/19/17 at 07:55; Status DC Docusate Sodium (Colace) 100 mg BID PO Last administered on 01/19/17 21:13; Start 01/17/17 at 21:00 Levetiracetam (Keppra) 500 mg BID PO Last administered on 01/19/17 21:13; Start 01/17/17 at 21:00 Olanzapine (ZyPREXA) 2.5 mg HS PO Last administered on 01/19/17 21:13; Start 01/17/17 at 21:00 Trazodone HCl (Desyrel) 50 mg HS PO Last administered on 01/19/17 21:12; Start 01/17/17 at 21:00 Calcium Carbonate/ Glycine (Tums) 500 mg PRN AFTMEALHC PRN PO INDIGESTION Last administered on 01/19/17 18:30; Start 01/17/17 at 21:15 Artificial Tears (Artificial Tears) 1 drop PRN Q1HR PRN OU DRY EYE; Start at 21:15 Citalopram Hydrobromide (CeleXA) 40 mg DAILY PO Last administered on 08:31; Start 01/18/17 at 09:00 Fluticasone Propionate (Flonase) 1 spray PRN DAILY PRN NS ALLERGIES; Start at 21:01; Stop 01/17/17 at 21:02; Status DC Losartan Potassium (Cozaar) 100 mg DAILY PO Last administered on 01/18/17 08: 29; Start 01/18/17 at 09:00 Magnesium Hydroxide (Milk Of Magnesia) 2,400 mg PRN DAILY PRN PO CONSTIPATION Last administered on 01/19/17 08:32; Start 01/17/17 at 21:15 Non-Formulary Medication 15 gm PRN BID PRN TP RASH; Start 01/17/17 at 21:00; Status UNV Pantoprazole Sodium (Protonix) 40 mg DAILYAC PO Last administered on 08:32; Start 01/18/17 at 07:30 Diphenhydramine HCl (Benadryl) 25 mg PRN Q6HRS PRN PO ITCHING; Start 01/17/17 at 21:00 Fluticasone Propionate (Flonase) 1 spray PRN DAILY PRN NS ALLERGIES; Start at 21:15 Nystatin (Mycostatin) 1 jaci PRN DAILY PRN TP RASH; Start 01/17/17 at 21:15 Triamcinolone Acetonide (Kenalog) 1 jaci PRN DAILY PRN TP RASH; Start 01/17/17 at 21:15 Lactobacillus Rhamnosus (Culturelle) 1 cap BID PO ; Start 01/20/17 at 21:00 Albuterol/ Ipratropium (Duoneb) 3 ml RTQID NEB Last administered on 01/20/17 08:03; Start 01/19/17 at 12:00 Prochlorperazine Maleate (Compazine) 10 mg PRN Q6HRS PRN PO NAUSEA/VOMITING Last administered on 01/19/17 21:12; Start 01/19/17 at 20:00 Iohexol (Omnipaque 300 Mg/ml) 75 ml 1X ONCE IV ; Start 01/20/17 at 09:45; Stop 01/20/17 at 09:53; Status DC Polyethylene Glycol (miraLAX PACKET) 17 gm PRN DAILY PRN PO CONSTIPATION; Start 01/20/17 at 10:00; Status UNV Active Scripts Active Reported Nystatin-Triamcinolone Cream (Nystatin/Triamcin) 15 Gm Cream..g. 15 Gm TP PRN BID PRN Tylenol (Acetaminophen) 325 Mg Tablet 500 Mg PO PRN Q6HRS PRN Flonase Allergy Relief (Fluticasone Propionate) 9.9 Ml [place].susp 1 Sprays NS PRN DAILY PRN Tums (Calcium Carbonate) 300 Mg Tab.chew 300 Mg PO PRN Q1HR PRN Docusate Sodium 100 Mg Capsule 100 Mg PO BID Levetiracetam 500 Mg Tablet 500 Mg PO BID Olanzapine 5 Mg Tablet 2.5 Mg PO HS Trazodone Hcl 50 Mg Tablet 50 Mg PO HS Escitalopram Oxalate 10 Mg Tablet 30 Mg PO DAILY Losartan Potassium 100 Mg Tablet 100 Mg PO DAILY Omeprazole 40 Mg Capsule.dr 40 Mg PO DAILY Bacid Caplet (Acidoph/L.bulg/Bif.b/S.thermop) 1 Each Tablet 2 Each PO DAILY Simethicone 100 Ml Liquid 30 Ml MC PRN Q6HRS PRN Refresh Optive Eye Drops (Carboxymethylcellulos/Glycerin) 15 Ml Drops 15 Ml OP PRN Q1HR PRN Milk Of Magnesia (Magnesium Hydroxide) 2,400 Mg/10 Ml Oral.susp 2,400 Mg PO PRN DAILY PRN Vitals/I & O Vital Sign - Last 24 Hours 01/19/17 01/19/17 01/19/17 01/19/17 11:04 11:53 14:23 15:34 Temp 98.6 98.9 98.6 98.9 Pulse 73 71 Resp 19 18 B/P (MAP) 107/70 (82) 117/68 (84) Pulse Ox 95 94 95 O2 Delivery Room Air Room Air Room Air Room Air 01/19/17 01/19/17 01/19/17 01/19/17 19:53 20:00 20:03 23:17 Temp 98.4 98.3 98.4 98.3 Pulse 84 87 Resp 20 16 B/P (MAP) 114/73 (87) 103/69 (80) Pulse Ox 98 94 O2 Delivery Room Air Room Air Room Air Room Air 01/20/17 01/20/17 01/20/17 03:09 07:46 08:05 Temp 98.4 98.6 98.4 98.6 Pulse 84 77 Resp 16 18 B/P (MAP) 104/62 (76) 138/62 (87) Pulse Ox 94 97 93 O2 Delivery Room Air RICARDO MERRILL MD Jan 20, 2017 10:11
[2017-01-20 10:59] LABS: BASO # 0.1 x10^3/uL (0.0-0.2); BASO % 1 % (0-3); EOS % 1 % (0-3); HEMATOCRIT 35.9 % (39.0-53.0); HEMOGLOBIN 12.1 g/dL (13.0-17.5); LYMPH # 1.3 x10^3/uL (1.0-4.8); LYMPH % 18 % (24-48); MEAN CORPUSCULAR HEMOGLOBIN 29 pg (25-35); MEAN CORPUSCULAR HGB CONC 34 g/dL (31-37); MEAN CORPUSCULAR VOLUME 85 fL (79-100); MONO % 9 % (0-9); NEUT % 71 % (31-73); PLATELET COUNT 262 x10^3/uL (140-400); RED BLOOD COUNT 4.23 x10^6/uL (4.30-5.70); RED CELL DISTRIBUTION WIDTH 13.8 % (11.5-14.5); WHITE BLOOD COUNT 7.2 x10^3/uL (4.0-11.0)
[2017-01-20 11:03] VITALS: BP 116/78
[2017-01-20 11:23] LABS: ALBUMIN 2.6 g/dL (3.4-5.0); ALBUMIN/GLOBULIN RATIO 0.7 (1.0-1.7); CALCIUM 8.7 mg/dL (8.5-10.1); CREATININE 0.7 mg/dL (0.7-1.3); GFR 117.5; POTASSIUM 3.4 mmol/L (3.5-5.1); TOTAL BILIRUBIN 5.4 mg/dL (0.2-1.0); TOTAL PROTEIN 6.2 g/dL (6.4-8.2)
--- NOTE | 2017-01-20 11:52 | PDOC ---
PULMONARY PROGRESS NOTES Subjective no soa Vitals Vital Signs Date Time Temp Pulse Resp B/P (MAP) Pulse Ox O2 Delivery O2 Flow Rate FiO2 01/20/17 11:46 Room Air 01/20/17 11:03 98.3 77 18 116/78 (91) 93 98.3 General: Alert, No acute distress Lungs: Other (decrease bs) Cardiovascular: S1 Abdomen: Soft Neuro Exam: Alert Extremities: No Edema Skin: Warm Labs Laboratory Tests Test 01/20/17 10:37 White Blood Count 7.2 x10^3/uL (4.0-11.0) Red Blood Count 4.23 x10^6/uL (4.30-5.70) Hemoglobin 12.1 g/dL (13.0-17.5) Hematocrit 35.9 % (39.0-53.0) Mean Corpuscular Volume 85 fL (79-100) Mean Corpuscular Hemoglobin 29 pg (25-35) Mean Corpuscular Hemoglobin Concent 34 g/dL (31-37) Red Cell Distribution Width 13.8 % (11.5-14.5) Platelet Count 262 x10^3/uL (140-400) Neutrophils (%) (Auto) 71 % (31-73) Lymphocytes (%) (Auto) 18 % (24-48) Monocytes (%) (Auto) 9 % (0-9) Eosinophils (%) (Auto) 1 % (0-3) Basophils (%) (Auto) 1 % (0-3) Neutrophils # (Auto) 5.1 x10^3uL (1.8-7.7) Lymphocytes # (Auto) 1.3 x10^3/uL (1.0-4.8) Monocytes # (Auto) 0.7 x10^3/uL (0.0-1.1) Eosinophils # (Auto) 0.1 x10^3/uL (0.0-0.7) Basophils # (Auto) 0.1 x10^3/uL (0.0-0.2) Sodium Level 139 mmol/L (136-145) Potassium Level 3.4 mmol/L (3.5-5.1) Chloride Level 103 mmol/L (98-107) Carbon Dioxide Level 27 mmol/L (21-32) Anion Gap 9 (6-14) Blood Urea Nitrogen 4 mg/dL (8-26) Creatinine 0.7 mg/dL (0.7-1.3) Estimated GFR (Cockcroft-Gault) 117.5 BUN/Creatinine Ratio 6 (6-20) Glucose Level 110 mg/dL (70-99) Calcium Level 8.7 mg/dL (8.5-10.1) Total Bilirubin 5.4 mg/dL (0.2-1.0) Aspartate Amino Transf (AST/SGOT) 172 U/L (15-37) Alanine Aminotransferase (ALT/SGPT) 231 U/L (16-63) Alkaline Phosphatase 417 U/L (46-116) Total Protein 6.2 g/dL (6.4-8.2) Albumin 2.6 g/dL (3.4-5.0) Albumin/Globulin Ratio 0.7 (1.0-1.7) Laboratory Tests Test 01/20/17 10:37 White Blood Count 7.2 x10^3/uL (4.0-11.0) Red Blood Count 4.23 x10^6/uL (4.30-5.70) Hemoglobin 12.1 g/dL (13.0-17.5) Hematocrit 35.9 % (39.0-53.0) Mean Corpuscular Volume 85 fL (79-100) Mean Corpuscular Hemoglobin 29 pg (25-35) Mean Corpuscular Hemoglobin Concent 34 g/dL (31-37) Red Cell Distribution Width 13.8 % (11.5-14.5) Platelet Count 262 x10^3/uL (140-400) Neutrophils (%) (Auto) 71 % (31-73) Lymphocytes (%) (Auto) 18 % (24-48) Monocytes (%) (Auto) 9 % (0-9) Eosinophils (%) (Auto) 1 % (0-3) Basophils (%) (Auto) 1 % (0-3) Neutrophils # (Auto) 5.1 x10^3uL (1.8-7.7) Lymphocytes # (Auto) 1.3 x10^3/uL (1.0-4.8) Monocytes # (Auto) 0.7 x10^3/uL (0.0-1.1) Eosinophils # (Auto) 0.1 x10^3/uL (0.0-0.7) Basophils # (Auto) 0.1 x10^3/uL (0.0-0.2) Sodium Level 139 mmol/L (136-145) Potassium Level 3.4 mmol/L (3.5-5.1) Chloride Level 103 mmol/L (98-107) Carbon Dioxide Level 27 mmol/L (21-32) Anion Gap 9 (6-14) Blood Urea Nitrogen 4 mg/dL (8-26) Creatinine 0.7 mg/dL (0.7-1.3) Estimated GFR (Cockcroft-Gault) 117.5 BUN/Creatinine Ratio 6 (6-20) Glucose Level 110 mg/dL (70-99) Calcium Level 8.7 mg/dL (8.5-10.1) Total Bilirubin 5.4 mg/dL (0.2-1.0) Aspartate Amino Transf (AST/SGOT) 172 U/L (15-37) Alanine Aminotransferase (ALT/SGPT) 231 U/L (16-63) Alkaline Phosphatase 417 U/L (46-116) Total Protein 6.2 g/dL (6.4-8.2) Albumin 2.6 g/dL (3.4-5.0) Albumin/Globulin Ratio 0.7 (1.0-1.7) Medications Active Scripts Medications Dose Route/Sig Max Daily Dose Days Date Category Nystatin-Triamcinolone Cream (Nystatin/Triamcin) 15 Gm Cream..g. 15 Gm TP PRN BID PRN 01/16/17 Reported Tylenol (Acetaminophen) 325 Mg Tablet 500 Mg PO PRN Q6HRS PRN 01/16/17 Reported Flonase Allergy Relief (Fluticasone Propionate) 9.9 Ml [place].susp 1 Sprays NS PRN DAILY PRN 01/16/17 Reported Tums (Calcium Carbonate) 300 Mg Tab.chew 300 Mg PO PRN Q1HR PRN 01/16/17 Reported Docusate Sodium 100 Mg Capsule 100 Mg PO BID 01/16/17 Reported Levetiracetam 500 Mg Tablet 500 Mg PO BID 01/16/17 Reported Olanzapine 5 Mg Tablet 2.5 Mg PO HS 01/16/17 Reported Trazodone Hcl 50 Mg Tablet 50 Mg PO HS 01/16/17 Reported Escitalopram Oxalate 10 Mg Tablet 30 Mg PO DAILY 10/19/17 Reported Losartan Potassium 100 Mg Tablet 100 Mg PO DAILY 01/16/17 Reported Omeprazole 40 Mg Capsule.dr 40 Mg PO DAILY 01/16/17 Reported Bacid Caplet (Acidoph/L.bulg/Bif.b/S.thermop) 1 Each Tablet 2 Each PO DAILY 01/16/17 Reported Simethicone 100 Ml Liquid 30 Ml MC PRN Q6HRS PRN 01/16/17 Reported Refresh Optive Eye Drops (Carboxymethylcellulos/Glycerin) 15 Ml Drops 15 Ml OP PRN Q1HR PRN 01/16/17 Reported Milk Of Magnesia (Magnesium Hydroxide) 2,400 Mg/10 Ml Oral.susp 2,400 Mg PO PRN DAILY PRN 01/16/17 Reported Impression . 1. Dyspnea. 2. Abnormal CT of the chest with basal atelectasis. There one nodule in RLL which needs to be followed up due to long h/o tobaco use 3. Pancreatic mass. 4. Traumatic brain injury and dementia. 5. Elevated liver function tests. 6. Hypertension. 7. Anxiety and depression. 8. Tobacco habituation. Plan . 1. Titrate FiO2 to keep O2 saturation 92%. 2. bronchodilator. 3. May consider a PET scan as an outpatient for evaluation of chest CT abnormalities vs f/u ct in 3 months 4. Has a pancreatic mass. ERCP with unsuccessful stent placement was done. Await further recommendation from GI. He would require a pancreatic biopsy , if not done. 5. PFTs at some point. 6. I had a long discussion with him regarding smoking cessation. I have advised him to stop smoking forever. 7. Lovenox for DVT prophylaxis. JEOVANY CRAIG MD Jan 20, 2017 11:52
[2017-01-20 14:20] LABS: CEA 2.1 ng/mL (0.0-4.7)
[2017-01-20 14:59] VITALS: BP 136/78
--- NOTE | 2017-01-20 16:01 | RAD ---
CT of the abdomen with contrast, 01/20/2017: History: Pancreatic mass, elevated bilirubin Multidetector CT imaging was performed following an IV bolus injection of iodinated contrast material. Water was given orally to provide negative GI tract contrast. There are moderate streaky bibasilar pulmonary opacities which have worsened since the previous study. The findings suggest atelectasis and/or pneumonia. There is a 9 mm pulmonary nodule in the posterior aspect of the right lung base, as also noted on the previous study. It demonstrates a small focus of increased density centrally raising the possibility of a granulomatous origin. Small bilateral pleural effusions have developed. The intrahepatic and extrahepatic bile ducts are dilated. No hepatic mass is seen. There is contrast material within the gallbladder. This is presumably related to the recent ERCP with attempted stent placement. There is a heterogeneous low-density mass in the pancreatic tail near its junction with the pancreatic body. This process measures 4-5 cm in greatest dimension as seen on the coronal images. There is adjacent medium density tissue surrounding the celiac axis and portions of the proximal superior mesenteric artery. Local tumor invasion/adenopathy is suspected. These densities also abut the pancreatic head and are likely the source of the distal common bile duct obstruction. There is also mild aortocaval adenopathy at the level of the renal veins. The spleen is of normal size. Splenic enhancement is heterogeneous. Cystic areas in at the right renal hilum probably represent parapelvic cysts. No definite hydronephrosis is seen. The adrenal glands are unremarkable. The bowel loops are not dilated. No free fluid is evident in the abdomen. There is mild streaky edema in the central mesentery and in the para-aortic region. There are scattered degenerative changes in the spine. A dense sclerotic focus is again noted anteriorly in the L3 vertebral body. Blastic osseous metastatic disease cannot be excluded. IMPRESSION: 1. Pancreatic body/tail mass suggesting a primary pancreatic malignancy with evidence of local tumor extension and adenopathy as described above. 2. Mild intrahepatic and extrahepatic bile duct dilatation. 3. Increasing streaky bibasilar atelectasis/infiltrate with interval development of small bilateral pleural effusions. PQRS Compliance Statement: One or more of the following individualized dose reduction techniques were utilized for this examination: 1. Automated exposure control 2. Adjustment of the mA and/or kV according to patient size 3. Use of iterative reconstruction technique
[2017-01-20] MEDS: traMADol 50 MG TABLET PO PRN (16:03)
--- NOTE | 2017-01-20 17:00 | PDOC2 ---
PALLIATIVE CARE Palliative Care Note Palliative Care Patient alert. Denies abdominal pain. Moderate amount of pain in back. Medicated with good results PTHC cancelled today. Received permission to call Bernadine/sister and provide information about his condition. Bernadine called message to return call. OG NEWBERRY Jan 20, 2017 17:00
[2017-01-20 19:40] VITALS: BP 112/84
[2017-01-20] MEDS: OLANZapine 2.5 MG TABLET PO SCH (20:01)
[2017-01-20] MEDS: CALCIUM CARBONATE 500 MG TAB.CHEW PO PRN (20:01)
[2017-01-20] MEDS: traZODone 50 MG TABLET. PO SCH (20:01)
[2017-01-20] MEDS: LACTOBACILLUS RHAMNOSUS GG 1 CAPSULE. PO SCH (20:01)
[2017-01-20] MEDS: MORPHINE SULFATE 2 MG/ML DISP.SYRIN. IV PRN (20:02)
[2017-01-20 23:44] VITALS: BP 111/72
[2017-01-21 03:30] VITALS: BP 90/57
[2017-01-21 07:04] VITALS: BP 103/63
[2017-01-21] MEDS: IPRATRPIUM/ALBUTEROL 0.5/2.5MG 3 ML NEBU. NEB SCH ×4 (07:41→20:07)
[2017-01-21] MEDS: ENOXAPARIN 40 MG/0.4 ML SYRINGE. SQ SCH (09:00)
[2017-01-21 11:18] VITALS: BP 128/80
--- NOTE | 2017-01-21 11:25 | PDOC ---
PROGRESS NOTES Chief Complaint Chief Complaint h/o dementia, acute metabolic encephalopathy w. delirium on admit one 2.6cm pancreatic mass, consider pancreatic cancer multiple lung nodules, need to rule out mets h/o dementia, not sure baseline or if recent brain injury? jaundice with elevated transaminitis previous heavy drinker. EtOH abuse GERD HTN from rehab bipolar disorder, wheelchair bound, walks with a walker History of Present Illness History of Present Illness gi consult following, Stent from ERCP unsuccessful consider pancreatic cancer IR consulted, may benefit from Percutaneous transhepatic cholangiography Hepatitis panel, CA19-9, CEA pending Vitals Vitals Vital Signs Date Time Temp Pulse Resp B/P (MAP) Pulse Ox O2 Delivery O2 Flow Rate FiO2 01/21/17 11:20 93 Room Air 01/21/17 11:18 97.9 91 19 128/80 (96) 97.9 01/20/17 19:50 10.0 Physical Exam General: Cooperative, No acute distress Heart: Regular rate Lungs: Other (decrease bs) Abdomen: Soft, Other (mild tenderness upper abdomen) Extremities: No clubbing, No cyanosis Skin: No breakdown, No significant lesion Assessment and Plan Assessmemt and Plan Problems Medical Problems: (1) Abdominal pain Status: Acute (2) Jaundice Status: Acute (3) Pancreatic mass Status: Acute Problems: Comment Review of Relevant I have reviewed the following items regla (where applicable) has been applied. Labs Laboratory Tests Test 01/20/17 10:37 White Blood Count 7.2 x10^3/uL (4.0-11.0) Red Blood Count 4.23 x10^6/uL (4.30-5.70) Hemoglobin 12.1 g/dL (13.0-17.5) Hematocrit 35.9 % (39.0-53.0) Mean Corpuscular Volume 85 fL (79-100) Mean Corpuscular Hemoglobin 29 pg (25-35) Mean Corpuscular Hemoglobin Concent 34 g/dL (31-37) Red Cell Distribution Width 13.8 % (11.5-14.5) Platelet Count 262 x10^3/uL (140-400) Neutrophils (%) (Auto) 71 % (31-73) Lymphocytes (%) (Auto) 18 % (24-48) Monocytes (%) (Auto) 9 % (0-9) Eosinophils (%) (Auto) 1 % (0-3) Basophils (%) (Auto) 1 % (0-3) Neutrophils # (Auto) 5.1 x10^3uL (1.8-7.7) Lymphocytes # (Auto) 1.3 x10^3/uL (1.0-4.8) Monocytes # (Auto) 0.7 x10^3/uL (0.0-1.1) Eosinophils # (Auto) 0.1 x10^3/uL (0.0-0.7) Basophils # (Auto) 0.1 x10^3/uL (0.0-0.2) Sodium Level 139 mmol/L (136-145) Potassium Level 3.4 mmol/L (3.5-5.1) Chloride Level 103 mmol/L (98-107) Carbon Dioxide Level 27 mmol/L (21-32) Anion Gap 9 (6-14) Blood Urea Nitrogen 4 mg/dL (8-26) Creatinine 0.7 mg/dL (0.7-1.3) Estimated GFR (Cockcroft-Gault) 117.5 BUN/Creatinine Ratio 6 (6-20) Glucose Level 110 mg/dL (70-99) Calcium Level 8.7 mg/dL (8.5-10.1) Total Bilirubin 5.4 mg/dL (0.2-1.0) Aspartate Amino Transf (AST/SGOT) 172 U/L (15-37) Alanine Aminotransferase (ALT/SGPT) 231 U/L (16-63) Alkaline Phosphatase 417 U/L (46-116) Total Protein 6.2 g/dL (6.4-8.2) Albumin 2.6 g/dL (3.4-5.0) Albumin/Globulin Ratio 0.7 (1.0-1.7) Microbiology 01/16/17 Urine Culture - Final, Complete 01/16/17 Urine Culture Result 1 (BESS) - Final, Complete Medications Current Medications Sodium Chloride 1,000 ml @ 1,000 mls/hr Q1H IV Last administered on t 14:05; Start 01/16/17 at 13:37; Stop 01/16/17 at 14:36; Status DC Sodium Chloride (Normal Saline Flush) 10 ml QSHIFT PRN IV AFTER MEDS AND BLOOD DRAWS; Start 01/16/17 at 13:45 Ondansetron HCl (Zofran) 4 mg 1X ONCE IV Last administered on 01/16/17 14:04 ; Start 01/16/17 at 13:45; Stop 01/16/17 at 13:47; Status DC Ondansetron HCl (Zofran) 4 mg PRN Q8HRS PRN IV NAUSEA/VOMITING Last administered on 01/17/17 09:11; Start 01/16/17 at 16:15; Stop 01/17/17 at 16 :14; Status DC Fentanyl Citrate (Fentanyl 2ml Vial) 50 mcg PRN Q2HR PRN IV PAIN Last administered on 01/16/17 14:05; Start 01/16/17 at 16:15; Stop 01/17/17 at 16 :14; Status DC Sodium Chloride 1,000 ml @ 125 mls/hr Q8H IV Last administered on 01/17/17 12:31; Start 01/16/17 at 16:02; Stop 01/17/17 at 16:01; Status DC Acetaminophen (Tylenol) 650 mg PRN Q6HRS PRN PO FEVER; Start 01/16/17 at 16:30 ; Stop 01/18/17 at 15:22; Status DC Ondansetron HCl (Zofran) 4 mg PRN Q6HRS PRN IV NAUSEA/VOMITING Last administered on 01/19/17 14:27; Start 01/16/17 at 16:30 Morphine Sulfate 2 mg PRN Q2HR PRN IV PAIN Last administered on 01/20/17 20: 02; Start 01/16/17 at 16:30 Tramadol HCl (Ultram) 50 mg PRN Q6HRS PRN PO PAIN Last administered on 16:03; Start 01/16/17 at 16:30 Hydralazine HCl (Apresoline Inj) 10 mg PRN Q4HRS PRN IVP ELEVATED BP, SEE COMMENTS; Start 01/16/17 at 16:30 Docusate Sodium (Colace) 100 mg PRN DAILY PRN PO CONSTIPATION; Start 01/16/17 at 16:30 Enoxaparin Sodium (Lovenox 40mg Syringe) 40 mg DAILY SQ Last administered on 08:36; Start 01/17/17 at 09:00 Propofol 20 ml @ As Directed STK-MED ONCE IV ; Start 01/17/17 at 09:30; Stop 01/17/17 at 09:31; Status DC Dexamethasone Sodium Phosphate (Decadron) 20 mg STK-MED ONCE .ROUTE ; Start at 09:30; Stop 01/17/17 at 09:31; Status DC Famotidine (Pepcid) 20 mg STK-MED ONCE .ROUTE ; Start 01/17/17 at 09:30; Stop 01/17/17 at 09:31; Status DC Lidocaine HCl (Lidocaine Pf 2% Vial) 5 ml STK-MED ONCE .ROUTE ; Start 01/17/17 at 09:30; Stop 01/17/17 at 09:31; Status DC Ondansetron HCl (Zofran) 4 mg STK-MED ONCE .ROUTE ; Start 01/17/17 at 09:30; Stop 01/17/17 at 09:31; Status DC Succinylcholine Chloride (Anectine) 200 mg STK-MED ONCE .ROUTE ; Start at 09:30; Stop 01/17/17 at 09:31; Status DC Iohexol (Omnipaque 300 Mg/ml) 50 ml STK-MED ONCE .ROUTE ; Start 01/17/17 at 09: 57; Stop 01/17/17 at 09:58; Status DC Iohexol (Omnipaque 300 Mg/ml) 50 ml STK-MED ONCE IV Last administered on t 10:38; Start 01/17/17 at 10:38; Stop 01/17/17 at 10:53; Status DC Levofloxacin/ Dextrose 100 ml @ 100 mls/hr Q24H IV Last administered on t 14:33; Start 01/17/17 at 12:00 Fentanyl Citrate (Fentanyl 2ml Vial) 25 mcg PRN Q5MIN PRN IV MILD PAIN; Start 01/17/17 at 11:30; Stop 01/17/17 at 16:13; Status DC Fentanyl Citrate (Fentanyl 2ml Vial) 50 mcg PRN Q5MIN PRN IV MODERATE PAIN; Start 01/17/17 at 11:30; Stop 01/17/17 at 16:13; Status DC Morphine Sulfate 1 mg PRN Q10MIN PRN IV SEVERE PAIN; Start 01/17/17 at 11:30; Stop 01/17/17 at 16:14; Status DC Ringer's Solution 1,000 ml @ 30 mls/hr Q24H IV ; Start 01/17/17 at 11:20; Stop 01/17/17 at 23:19; Status DC Lidocaine HCl (Xylocaine-Mpf 1% Vial) 2 ml 1X PRN PRN ID IV START; Start 01/17 at 11:30; Stop 01/17/17 at 16:14; Status DC Hydromorphone HCl (Dilaudid) 0.5 mg PRN Q10MIN PRN IV SEV PAIN, Second choice; Start 01/17/17 at 11:30; Stop 01/17/17 at 16:13; Status DC Prochlorperazine Edisylate (Compazine) 5 mg PACU PRN PRN IV NAUSEA, MRX1 Last administered on 01/17/17 12:44; Start 01/17/17 at 11:30; Stop 01/17/17 at 16 :14; Status DC Nicotine (Nicoderm Cq 21mg) 1 patch DAILY TD Last administered on 01/19/17 08 :32; Start 01/17/17 at 12:00 Gadobutrol (Gadavist) 6 mmol 1X ONCE IV Last administered on 01/17/17 15:03 ; Start 01/17/17 at 15:00; Stop 01/17/17 at 15:01; Status DC Acetaminophen (Tylenol) 500 mg PRN Q6HRS PRN PO PAIN; Start 01/17/17 at 21:00 Lactobacillus Rhamnosus (Culturelle) 1 cap BID PO Last administered on 20:41; Start 01/18/17 at 09:00; Stop 01/19/17 at 07:55; Status DC Docusate Sodium (Colace) 100 mg BID PO Last administered on 01/20/17 20:01; Start 01/17/17 at 21:00 Levetiracetam (Keppra) 500 mg BID PO Last administered on 01/20/17 20:01; Start 01/17/17 at 21:00 Olanzapine (ZyPREXA) 2.5 mg HS PO Last administered on 01/20/17 20:01; Start 01/17/17 at 21:00 Trazodone HCl (Desyrel) 50 mg HS PO Last administered on 01/20/17 20:01; Start 01/17/17 at 21:00 Calcium Carbonate/ Glycine (Tums) 500 mg PRN AFTMEALHC PRN PO INDIGESTION Last administered on 01/20/17 20:01; Start 01/17/17 at 21:15 Artificial Tears (Artificial Tears) 1 drop PRN Q1HR PRN OU DRY EYE; Start at 21:15 Citalopram Hydrobromide (CeleXA) 40 mg DAILY PO Last administered on 08:31; Start 01/18/17 at 09:00 Fluticasone Propionate (Flonase) 1 spray PRN DAILY PRN NS ALLERGIES; Start at 21:01; Stop 01/17/17 at 21:02; Status DC Losartan Potassium (Cozaar) 100 mg DAILY PO Last administered on 01/18/17 08: 29; Start 01/18/17 at 09:00 Magnesium Hydroxide (Milk Of Magnesia) 2,400 mg PRN DAILY PRN PO CONSTIPATION Last administered on 01/19/17 08:32; Start 01/17/17 at 21:15 Non-Formulary Medication 15 gm PRN BID PRN TP RASH; Start 01/17/17 at 21:00; Status UNV Pantoprazole Sodium (Protonix) 40 mg DAILYAC PO Last administered on 08:32; Start 01/18/17 at 07:30 Diphenhydramine HCl (Benadryl) 25 mg PRN Q6HRS PRN PO ITCHING; Start 01/17/17 at 21:00 Fluticasone Propionate (Flonase) 1 spray PRN DAILY PRN NS ALLERGIES; Start at 21:15 Nystatin (Mycostatin) 1 jaci PRN DAILY PRN TP RASH; Start 01/17/17 at 21:15 Triamcinolone Acetonide (Kenalog) 1 jaci PRN DAILY PRN TP RASH; Start 01/17/17 at 21:15 Lactobacillus Rhamnosus (Culturelle) 1 cap BID PO Last administered on 20:01; Start 01/20/17 at 21:00 Albuterol/ Ipratropium (Duoneb) 3 ml RTQID NEB Last administered on 01/21/17 11:18; Start 01/19/17 at 12:00 Prochlorperazine Maleate (Compazine) 10 mg PRN Q6HRS PRN PO NAUSEA/VOMITING Last administered on 01/19/17 21:12; Start 01/19/17 at 20:00 Iohexol (Omnipaque 300 Mg/ml) 75 ml 1X ONCE IV Last administered on 11:10; Start 01/20/17 at 09:45; Stop 01/20/17 at 09:53; Status DC Polyethylene Glycol (miraLAX PACKET) 17 gm PRN DAILY PRN PO CONSTIPATION; Start 01/20/17 at 10:00 Active Scripts Active Reported Nystatin-Triamcinolone Cream (Nystatin/Triamcin) 15 Gm Cream..g. 15 Gm TP PRN BID PRN Tylenol (Acetaminophen) 325 Mg Tablet 500 Mg PO PRN Q6HRS PRN Flonase Allergy Relief (Fluticasone Propionate) 9.9 Ml [place].susp 1 Sprays NS PRN DAILY PRN Tums (Calcium Carbonate) 300 Mg Tab.chew 300 Mg PO PRN Q1HR PRN Docusate Sodium 100 Mg Capsule 100 Mg PO BID Levetiracetam 500 Mg Tablet 500 Mg PO BID Olanzapine 5 Mg Tablet 2.5 Mg PO HS Trazodone Hcl 50 Mg Tablet 50 Mg PO HS Escitalopram Oxalate 10 Mg Tablet 30 Mg PO DAILY Losartan Potassium 100 Mg Tablet 100 Mg PO DAILY Omeprazole 40 Mg Capsule.dr 40 Mg PO DAILY Bacid Caplet (Acidoph/L.bulg/Bif.b/S.thermop) 1 Each Tablet 2 Each PO DAILY Simethicone 100 Ml Liquid 30 Ml MC PRN Q6HRS PRN Refresh Optive Eye Drops (Carboxymethylcellulos/Glycerin) 15 Ml Drops 15 Ml OP PRN Q1HR PRN Milk Of Magnesia (Magnesium Hydroxide) 2,400 Mg/10 Ml Oral.susp 2,400 Mg PO PRN DAILY PRN Vitals/I & O Vital Sign - Last 24 Hours 01/20/17 01/20/17 01/20/17 01/20/17 11:46 14:59 16:03 16:40 Temp 98.5 98.5 Pulse 90 Resp 19 B/P (MAP) 136/78 (97) Pulse Ox 96 96 O2 Delivery Room Air Room Air Room Air O2 Flow Rate 10.0 01/20/17 01/20/17 01/20/17 01/20/17 19:29 19:40 19:50 20:00 Temp 98.3 98.3 Pulse 90 Resp 16 B/P (MAP) 112/84 (93) Pulse Ox 95 96 O2 Delivery Room Air Room Air Room Air Room Air O2 Flow Rate 10.0 01/20/17 01/20/17 01/20/17 01/21/17 20:02 20:48 23:44 03:30 Temp 97.6 97.6 97.6 97.6 Pulse 82 63 Resp 16 16 B/P (MAP) 111/72 (85) 90/57 (68) Pulse Ox 94 92 O2 Delivery Room Air Room Air Room Air Room Air 01/21/17 01/21/17 01/21/17 01/21/17 07:04 07:42 11:18 11:20 Temp 98.6 97.9 98.6 97.9 Pulse 69 91 Resp 18 19 B/P (MAP) 103/63 (76) 128/80 (96) Pulse Ox 95 93 93 O2 Delivery Room Air Room Air Room Air Room Air RICARDO MERRILL MD Jan 21, 2017 11:25
--- NOTE | 2017-01-21 12:27 | PDOC ---
Subjective: Subjective: "Tummy feels funny." Objective: Objective: Nurse called earlier, wondering why NPO. Dr. Ayoub to see later. Vital Signs: Vital Signs Date Time Temp Pulse Resp B/P (MAP) Pulse Ox O2 Delivery O2 Flow Rate FiO2 01/21/17 11:20 93 Room Air 01/21/17 11:18 97.9 91 19 128/80 (96) 97.9 01/20/17 19:50 10.0 Imaging: CT A/P There are moderate streaky bibasilar pulmonary opacities which have worsened since the previous study. The findings suggest atelectasis and/or pneumonia. There is a 9 mm pulmonary nodule in the posterior aspect of the right lung base , as also noted on the previous study. It demonstrates a small focus of increased density centrally raising the possibility of a granulomatous origin. Small bilateral pleural effusions have developed. The intrahepatic and extrahepatic bile ducts are dilated. No hepatic mass is seen. There is contrast material within the gallbladder. This is presumably related to the recent ERCP with attempted stent placement. There is a heterogeneous low-density mass in the pancreatic tail near its junction with the pancreatic body. This process measures 4-5 cm in greatest dimension as seen on the coronal images. There is adjacent medium density tissue surrounding the celiac axis and portions of the proximal superior mesenteric artery. Local tumor invasion/adenopathy is suspected. These densities also abut the pancreatic head and are likely the source of the distal common bile duct obstruction. There is also mild aortocaval adenopathy at the level of the renal veins. The spleen is of normal size. Splenic enhancement is heterogeneous. Cystic areas in at the right renal hilum probably represent parapelvic cysts. No definite hydronephrosis is seen. The adrenal glands are unremarkable. The bowel loops are not dilated. No free fluid is evident in the abdomen. There is mild streaky edema in the central mesentery and in the para-aortic region. There are scattered degenerative changes in the spine. A dense sclerotic focus is again noted anteriorly in the L3 vertebral body. Blastic osseous metastatic disease cannot be excluded. IMPRESSION: 1. Pancreatic body/tail mass suggesting a primary pancreatic malignancy with evidence of local tumor extension and adenopathy as described above. 2. Mild intrahepatic and extrahepatic bile duct dilatation. 3. Increasing streaky bibasilar atelectasis/infiltrate with interval development of small bilateral pleural effusions. PE: GEN: NAD LUNGS: CTAB HEART: RRR ABD: vaguely tender NEURO/PSYCH: A & O 3 A/P: Pancreatic mass, biliary obstruction, elevated CA19-9 -- Interval CT as above - no PTHC yesterday. Reviewed w/ Dr. Nash - will ask oncology to see. Okay to resume PO per GI. Palliative care involved. JAYY ALMENDAREZ Jan 21, 2017 12:27
--- NOTE | 2017-01-21 13:19 | PDOC ---
SURGICAL PROGRESS NOTE Subjective Pt with c/o mild stomach pains, NPO Vital Signs Vital Signs Date Time Temp Pulse Resp B/P (MAP) Pulse Ox O2 Delivery O2 Flow Rate FiO2 01/21/17 11:20 93 Room Air 01/21/17 11:18 97.9 91 19 128/80 (96) 97.9 01/20/17 19:50 10.0 General: Alert, Cooperative, No acute distress Abdomen: Soft, No tenderness, No masses Labs Laboratory Tests Test 01/20/17 10:37 White Blood Count 7.2 x10^3/uL (4.0-11.0) Red Blood Count 4.23 x10^6/uL (4.30-5.70) Hemoglobin 12.1 g/dL (13.0-17.5) Hematocrit 35.9 % (39.0-53.0) Mean Corpuscular Volume 85 fL (79-100) Mean Corpuscular Hemoglobin 29 pg (25-35) Mean Corpuscular Hemoglobin Concent 34 g/dL (31-37) Red Cell Distribution Width 13.8 % (11.5-14.5) Platelet Count 262 x10^3/uL (140-400) Neutrophils (%) (Auto) 71 % (31-73) Lymphocytes (%) (Auto) 18 % (24-48) Monocytes (%) (Auto) 9 % (0-9) Eosinophils (%) (Auto) 1 % (0-3) Basophils (%) (Auto) 1 % (0-3) Neutrophils # (Auto) 5.1 x10^3uL (1.8-7.7) Lymphocytes # (Auto) 1.3 x10^3/uL (1.0-4.8) Monocytes # (Auto) 0.7 x10^3/uL (0.0-1.1) Eosinophils # (Auto) 0.1 x10^3/uL (0.0-0.7) Basophils # (Auto) 0.1 x10^3/uL (0.0-0.2) Sodium Level 139 mmol/L (136-145) Potassium Level 3.4 mmol/L (3.5-5.1) Chloride Level 103 mmol/L (98-107) Carbon Dioxide Level 27 mmol/L (21-32) Anion Gap 9 (6-14) Blood Urea Nitrogen 4 mg/dL (8-26) Creatinine 0.7 mg/dL (0.7-1.3) Estimated GFR (Cockcroft-Gault) 117.5 BUN/Creatinine Ratio 6 (6-20) Glucose Level 110 mg/dL (70-99) Calcium Level 8.7 mg/dL (8.5-10.1) Total Bilirubin 5.4 mg/dL (0.2-1.0) Aspartate Amino Transf (AST/SGOT) 172 U/L (15-37) Alanine Aminotransferase (ALT/SGPT) 231 U/L (16-63) Alkaline Phosphatase 417 U/L (46-116) Total Protein 6.2 g/dL (6.4-8.2) Albumin 2.6 g/dL (3.4-5.0) Albumin/Globulin Ratio 0.7 (1.0-1.7) I have reviewed the following CT pancreatic mass Problem List Problems Medical Problems: (1) Abdominal pain Status: Acute (2) Jaundice Status: Acute (3) Pancreatic mass Status: Acute Assessment/Plan cont w/u per GI pt may benefit from drainage procedure of some sort, will defer to GI biopsy would be helpful for treatment options, may benefit from oncology consult no surgical plans currently. Unlikely that this will be resectable, currently, but possibly resectable with neoadjuvant therapy. Would consider palliative bypass, if needed. Problems: REJI PERALTA MD Jan 21, 2017 13:19
--- NOTE | 2017-01-21 13:56 | PDOC ---
PULMONARY PROGRESS NOTES Subjective no soa Vitals Vital Signs Date Time Temp Pulse Resp B/P (MAP) Pulse Ox O2 Delivery O2 Flow Rate FiO2 01/21/17 11:20 93 Room Air 01/21/17 11:18 97.9 91 19 128/80 (96) 97.9 01/20/17 19:50 10.0 General: Alert, No acute distress Lungs: Other (decrease bs) Cardiovascular: S1 Abdomen: Soft Neuro Exam: Alert Extremities: No Edema Skin: Warm Labs Laboratory Tests Test 01/20/17 10:37 White Blood Count 7.2 x10^3/uL (4.0-11.0) Red Blood Count 4.23 x10^6/uL (4.30-5.70) Hemoglobin 12.1 g/dL (13.0-17.5) Hematocrit 35.9 % (39.0-53.0) Mean Corpuscular Volume 85 fL (79-100) Mean Corpuscular Hemoglobin 29 pg (25-35) Mean Corpuscular Hemoglobin Concent 34 g/dL (31-37) Red Cell Distribution Width 13.8 % (11.5-14.5) Platelet Count 262 x10^3/uL (140-400) Neutrophils (%) (Auto) 71 % (31-73) Lymphocytes (%) (Auto) 18 % (24-48) Monocytes (%) (Auto) 9 % (0-9) Eosinophils (%) (Auto) 1 % (0-3) Basophils (%) (Auto) 1 % (0-3) Neutrophils # (Auto) 5.1 x10^3uL (1.8-7.7) Lymphocytes # (Auto) 1.3 x10^3/uL (1.0-4.8) Monocytes # (Auto) 0.7 x10^3/uL (0.0-1.1) Eosinophils # (Auto) 0.1 x10^3/uL (0.0-0.7) Basophils # (Auto) 0.1 x10^3/uL (0.0-0.2) Sodium Level 139 mmol/L (136-145) Potassium Level 3.4 mmol/L (3.5-5.1) Chloride Level 103 mmol/L (98-107) Carbon Dioxide Level 27 mmol/L (21-32) Anion Gap 9 (6-14) Blood Urea Nitrogen 4 mg/dL (8-26) Creatinine 0.7 mg/dL (0.7-1.3) Estimated GFR (Cockcroft-Gault) 117.5 BUN/Creatinine Ratio 6 (6-20) Glucose Level 110 mg/dL (70-99) Calcium Level 8.7 mg/dL (8.5-10.1) Total Bilirubin 5.4 mg/dL (0.2-1.0) Aspartate Amino Transf (AST/SGOT) 172 U/L (15-37) Alanine Aminotransferase (ALT/SGPT) 231 U/L (16-63) Alkaline Phosphatase 417 U/L (46-116) Total Protein 6.2 g/dL (6.4-8.2) Albumin 2.6 g/dL (3.4-5.0) Albumin/Globulin Ratio 0.7 (1.0-1.7) Medications Active Scripts Medications Dose Route/Sig Max Daily Dose Days Date Category Nystatin-Triamcinolone Cream (Nystatin/Triamcin) 15 Gm Cream..g. 15 Gm TP PRN BID PRN 01/16/17 Reported Tylenol (Acetaminophen) 325 Mg Tablet 500 Mg PO PRN Q6HRS PRN 01/16/17 Reported Flonase Allergy Relief (Fluticasone Propionate) 9.9 Ml [place].susp 1 Sprays NS PRN DAILY PRN 01/16/17 Reported Tums (Calcium Carbonate) 300 Mg Tab.chew 300 Mg PO PRN Q1HR PRN 01/16/17 Reported Docusate Sodium 100 Mg Capsule 100 Mg PO BID 01/16/17 Reported Levetiracetam 500 Mg Tablet 500 Mg PO BID 01/16/17 Reported Olanzapine 5 Mg Tablet 2.5 Mg PO HS 01/16/17 Reported Trazodone Hcl 50 Mg Tablet 50 Mg PO HS 01/16/17 Reported Escitalopram Oxalate 10 Mg Tablet 30 Mg PO DAILY 01/16/17 Reported Losartan Potassium 100 Mg Tablet 100 Mg PO DAILY 01/16/17 Reported Omeprazole 40 Mg Capsule.dr 40 Mg PO DAILY 01/16/17 Reported Bacid Caplet (Acidoph/L.bulg/Bif.b/S.thermop) 1 Each Tablet 2 Each PO DAILY 01/16/17 Reported Simethicone 100 Ml Liquid 30 Ml MC PRN Q6HRS PRN 01/16/17 Reported Refresh Optive Eye Drops (Carboxymethylcellulos/Glycerin) 15 Ml Drops 15 Ml OP PRN Q1HR PRN 01/16/17 Reported Milk Of Magnesia (Magnesium Hydroxide) 2,400 Mg/10 Ml Oral.susp 2,400 Mg PO PRN DAILY PRN 01/16/17 Reported Impression . 1. Dyspnea. 2. Abnormal CT of the chest with basal atelectasis. There one nodule in RLL which needs to be followed up due to long h/o tobaco use 3. Pancreatic mass. 4. Traumatic brain injury and dementia. 5. Elevated liver function tests. 6. Hypertension. 7. Anxiety and depression. 8. Tobacco habituation. Plan . PT TO FOLLOW UP IN OFFICE IN 3 MONTHS GAVE HIM MY BUSINESS CARD ORDER WRITTEN HOME WHEN OK WITH KASHMIR MCPHERSON MD Jan 21, 2017 13:56
[2017-01-21] MEDS: CALCIUM CARBONATE 500 MG TAB.CHEW PO PRN ×2 (14:09→17:36)
[2017-01-21] MEDS: traMADol 50 MG TABLET PO PRN ×2 (14:15→19:58)
[2017-01-21] MEDS: CITALOPRAM 20 MG TABLET. PO SCH (14:15)
[2017-01-21] MEDS: NICOTINE 21MG PATCH. TD SCH (14:15)
[2017-01-21] MEDS: levETIRAcetam 500 MG TABLET PO SCH ×2 (14:16→20:25)
[2017-01-21] MEDS: LOSARTAN POTASSIUM 50 MG TABLET. PO SCH (14:16)
[2017-01-21] MEDS: LACTOBACILLUS RHAMNOSUS GG 1 CAPSULE. PO SCH ×2 (14:16→20:25)
[2017-01-21] MEDS: PANTOPRAZOLE 40 MG TABLET.DR. PO SCH (14:16)
[2017-01-21] MEDS: DOCUSATE SODIUM 100 MG CAPSULE. PO SCH ×2 (14:16→20:25)
[2017-01-21] MEDS: ONDANSETRON PF 4 MG/2 ML VIAL. IV PRN (14:24)
--- NOTE | 2017-01-21 14:40 | PDOC2 ---
PALLIATIVE CARE Palliative Care Note Palliative Care Attempted to reach patient's sister Bernadine. Message to return call. No return call x 2 days. OG NEWBERRY Jan 21, 2017 14:40
[2017-01-21 15:10] VITALS: BP 134/89
--- NOTE | 2017-01-21 17:43 | PDOC ---
Provider Note Provider Note Med Onc consult: 1. Pancreatic mass consistent with pancreatic cancer. Locally advanced, poor prognosis. Pt does not want bx or surgery or chemo or radiation. Consult palliative care to facilitate discussion with family and consider hospice if all are in agreement. see dictation [id number] TAMMY ARROYO MD Jan 21, 2017 17:43
[2017-01-21 19:30] VITALS: BP 138/81
[2017-01-21] MEDS: traZODone 50 MG TABLET. PO SCH (20:25)
[2017-01-21] MEDS: OLANZapine 2.5 MG TABLET PO SCH (20:25)
--- NOTE | 2017-01-21 23:12 | CONS ---
DATE OF CONSULTATION: 01/21/2017 REQUESTING PHYSICIAN: Dr. Joselyn Nash. REASON FOR CONSULTATION: Pancreatic mass concerning for malignancy. HISTORY OF PRESENT ILLNESS: The patient is a 56-year-old gentleman who has a history of traumatic brain injury and dementia, who was brought in to [facility] Emergency Room from his facility with altered mental status, decreased appetite, nausea, vomiting and jaundice. He has had lower abdominal pain and vomiting. He denies loss of weight or loss of appetite. No hematemesis, melena, hematochezia. No fevers or chills, no diarrhea or constipation. He underwent further evaluation with a CT scan on 01/16/2017 that revealed prominent bile duct. A followup CT scan was performed on 01/20/2017 with IV contrast and this revealed a 4-5 cm mass in the pancreatic tail near its junction with the pancreatic body. There is evidence of local tumor extension and lymphadenopathy. CT scan of the chest on 01/16/2017 revealed opacities in the lung bases thought to be post inflammatory. His CA 19-9 was elevated at 1058 on 01/17/2017 and his liver function tests are also elevated with a bilirubin of 5.4. 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 Unsuccessful placement of a stent. Surgical consultation was obtained and he was thought to be unresectable at this time. Medical Oncology consultation was requested for further evaluation. PAST MEDICAL HISTORY: Anxiety, bipolar disorder, traumatic brain injury, dementia, depression, gastroesophageal reflux disease, hypertension. FAMILY HISTORY: Positive for hypertension. SOCIAL HISTORY: He smokes cigarettes two to three a day. He also has history of alcohol abuse. He reports that he is not drinking any more. REVIEW OF SYSTEMS: A 12-point review of system was performed. Pertinent positives are mentioned in the history of present illness. Rest of the system review is negative. PHYSICAL EXAMINATION: GENERAL APPEARANCE: The patient is a 56-year-old gentleman who is in no acute cardiorespiratory distress. VITAL SIGNS: Blood pressure 134/89, temperature 97.6. HEAD: Atraumatic, normocephalic. EYES: He has evidence of icterus. NECK: Supple. CHEST: Bilaterally symmetrical. HEART: S1, S2 normal. ABDOMEN: Soft, no masses palpable. CENTRAL NERVOUS SYSTEM: No focal deficits. LYMPHATICS: No lymphadenopathy. SKIN: No rashes. PSYCHOLOGIC: Mood and affect are appropriate. He is alert, awake and oriented. MUSCULOSKELETAL: No joint effusions. LABORATORY DATA: WBC 7.2, hemoglobin 12.1, platelet count 262. Total bilirubin 5.4, AST 172, ALT 231, alkaline phosphatase 417, total protein 6.2, albumin 2.6. CA 19-9 is 1058. CEA level is 2.1. IMPRESSION AND PLAN: 1. Pancreatic cancer per clinical evidence on CT scan of the abdomen done on 01/20/2017 and laboratory data of elevated CA 19-9 at 1058 on 01/17/2017. Biopsy would be required for confirmation. However, the CT does suggest involvement of the lymph nodes and celiac axis. Hence, it is unlikely that this is resectable. I discussed in detail with the patient regarding the options of endoscopic ultrasound-guided biopsy versus CT-guided biopsy for confirmation. Following the biopsy, if it is unresectable, then I would recommend palliative chemotherapy. If it is borderline resectable, then neoadjuvant chemotherapy can be considered followed by surgery. After discussing all the options with the patient, he mentioned that he does not want to get a biopsy and he does not want any chemotherapy or radiation or surgery. He wants to focus on quality of life, supportive care and comfort care only. Palliative Care has already been consulted. I would await further follow up from Palliative Care to help facilitate discussion with the rest of his family and if everybody is in agreement, then to proceed with hospice. I discussed with registered nurse. 2. Jaundice secondary to malignancy. Appreciate consultation by Gastroenterology. TAMMY ARROYO MD DR: ABELARDO/michele JOB#: [id number] / [id number] JOSELYN Peña MD
[2017-01-21 23:59] VITALS: BP 96/70
[2017-01-22 03:53] VITALS: BP 110/71
[2017-01-22 07:00] VITALS: BP 126/82
[2017-01-22] MEDS: IPRATRPIUM/ALBUTEROL 0.5/2.5MG 3 ML NEBU. NEB SCH ×2 (08:06→11:35)
[2017-01-22] MEDS: LACTOBACILLUS RHAMNOSUS GG 1 CAPSULE. PO SCH (08:48)
[2017-01-22] MEDS: CITALOPRAM 20 MG TABLET. PO SCH (08:48)
[2017-01-22] MEDS: LOSARTAN POTASSIUM 50 MG TABLET. PO SCH (08:49)
[2017-01-22] MEDS: DOCUSATE SODIUM 100 MG CAPSULE. PO SCH (08:49)
[2017-01-22] MEDS: PANTOPRAZOLE 40 MG TABLET.DR. PO SCH (08:49)
[2017-01-22] MEDS: levETIRAcetam 500 MG TABLET PO SCH (08:49)
[2017-01-22] MEDS: CALCIUM CARBONATE 500 MG TAB.CHEW PO PRN (08:49)
[2017-01-22] MEDS: NICOTINE 21MG PATCH. TD SCH (08:50)
[2017-01-22] MEDS: ENOXAPARIN 40 MG/0.4 ML SYRINGE. SQ SCH (08:50)
--- NOTE | 2017-01-22 09:07 | PDOC ---
PROGRESS NOTES Subjective Subjective HPI - Pancreatic cancer per clinical evidence on CT scan of the abdomen done on 01/20/2017 and laboratory data of elevated CA 19-9 at 1058 on 01/17/2017. ROS - no abd pain Objective Objective Vital Signs Date Time Temp Pulse Resp B/P (MAP) Pulse Ox O2 Delivery O2 Flow Rate FiO2 01/22/17 08:49 89 126/82 01/22/17 08:06 93 Room Air 01/22/17 07:00 98.1 19 98.1 01/21/17 15:30 10.0 Intake and Output 01/23/17 07:00 # Voids 1 Physical Exam Heart: Normal S1, Normal S2 General: Alert, Oriented X3, No acute distress Lungs: Clear to auscultation Assessment Assessment Problems Medical Problems: (1) Abdominal pain Status: Acute (2) Jaundice Status: Acute (3) Pancreatic mass Status: Acute IMPRESSION AND PLAN: 1. Pancreatic cancer per clinical evidence on CT scan of the abdomen done on 01/20/2017 and laboratory data of elevated CA 19-9 at 1058 on 01/17/2017. Biopsy would be required for confirmation. However, the CT and CA 19-9 are consistent with pancreatic cancer with involvement of the lymph nodes and celiac axis. Hence, it is unlikely that this is resectable and prognosis is poor. I discussed in detail with the patient regarding the options of endoscopic ultrasound-guided biopsy versus CT-guided biopsy for confirmation. Following the biopsy, if it is unresectable, then I would recommend palliative chemotherapy. If it is borderline resectable, then neoadjuvant chemotherapy can be considered followed by surgery. After discussing all the options with the patient, he mentioned that he does not want to get a biopsy and he does not want any chemotherapy or radiation or surgery. He wants to focus on quality of life, supportive care and comfort care only. Palliative Care has already been consulted. I would await further follow up from Palliative Care to help facilitate discussion with the rest of his family and if everybody is in agreement, then to proceed with hospice. 2. Jaundice secondary to malignancy. Appreciate consultation and management by Gastroenterology. Comment Review of Relevant I have reviewed the following items regla (where applicable) has been applied. Labs Laboratory Tests Test 01/20/17 10:37 White Blood Count 7.2 x10^3/uL (4.0-11.0) Red Blood Count 4.23 x10^6/uL (4.30-5.70) Hemoglobin 12.1 g/dL (13.0-17.5) Hematocrit 35.9 % (39.0-53.0) Mean Corpuscular Volume 85 fL (79-100) Mean Corpuscular Hemoglobin 29 pg (25-35) Mean Corpuscular Hemoglobin Concent 34 g/dL (31-37) Red Cell Distribution Width 13.8 % (11.5-14.5) Platelet Count 262 x10^3/uL (140-400) Neutrophils (%) (Auto) 71 % (31-73) Lymphocytes (%) (Auto) 18 % (24-48) Monocytes (%) (Auto) 9 % (0-9) Eosinophils (%) (Auto) 1 % (0-3) Basophils (%) (Auto) 1 % (0-3) Neutrophils # (Auto) 5.1 x10^3uL (1.8-7.7) Lymphocytes # (Auto) 1.3 x10^3/uL (1.0-4.8) Monocytes # (Auto) 0.7 x10^3/uL (0.0-1.1) Eosinophils # (Auto) 0.1 x10^3/uL (0.0-0.7) Basophils # (Auto) 0.1 x10^3/uL (0.0-0.2) Sodium Level 139 mmol/L (136-145) Potassium Level 3.4 mmol/L (3.5-5.1) Chloride Level 103 mmol/L (98-107) Carbon Dioxide Level 27 mmol/L (21-32) Anion Gap 9 (6-14) Blood Urea Nitrogen 4 mg/dL (8-26) Creatinine 0.7 mg/dL (0.7-1.3) Estimated GFR (Cockcroft-Gault) 117.5 BUN/Creatinine Ratio 6 (6-20) Glucose Level 110 mg/dL (70-99) Calcium Level 8.7 mg/dL (8.5-10.1) Total Bilirubin 5.4 mg/dL (0.2-1.0) Aspartate Amino Transf (AST/SGOT) 172 U/L (15-37) Alanine Aminotransferase (ALT/SGPT) 231 U/L (16-63) Alkaline Phosphatase 417 U/L (46-116) Total Protein 6.2 g/dL (6.4-8.2) Albumin 2.6 g/dL (3.4-5.0) Albumin/Globulin Ratio 0.7 (1.0-1.7) Microbiology 01/16/17 Urine Culture - Final, Complete 01/16/17 Urine Culture Result 1 (BESS) - Final, Complete Medications Current Medications Sodium Chloride 1,000 ml @ 1,000 mls/hr Q1H IV Last administered on 14:05; Start 01/16/17 at 13:37; Stop 01/16/17 at 14:36; Status DC Sodium Chloride (Normal Saline Flush) 10 ml QSHIFT PRN IV AFTER MEDS AND BLOOD DRAWS; Start 01/16/17 at 13:45 Ondansetron HCl (Zofran) 4 mg 1X ONCE IV Last administered on 01/16/17 14:04 ; Start 01/16/17 at 13:45; Stop 01/16/17 at 13:47; Status DC Ondansetron HCl (Zofran) 4 mg PRN Q8HRS PRN IV NAUSEA/VOMITING Last administered on 01/17/17 09:11; Start 01/16/17 at 16:15; Stop 01/17/17 at 16 :14; Status DC Fentanyl Citrate (Fentanyl 2ml Vial) 50 mcg PRN Q2HR PRN IV PAIN Last administered on 01/16/17 14:05; Start 01/16/17 at 16:15; Stop 01/17/17 at 16 :14; Status DC Sodium Chloride 1,000 ml @ 125 mls/hr Q8H IV Last administered on 01/17/17 12:31; Start 01/16/17 at 16:02; Stop 01/17/17 at 16:01; Status DC Acetaminophen (Tylenol) 650 mg PRN Q6HRS PRN PO FEVER; Start 01/16/17 at 16:30 ; Stop 01/18/17 at 15:22; Status DC Ondansetron HCl (Zofran) 4 mg PRN Q6HRS PRN IV NAUSEA/VOMITING Last administered on 01/21/17 14:24; Start 01/16/17 at 16:30 Morphine Sulfate 2 mg PRN Q2HR PRN IV PAIN Last administered on 01/20/17 20: 02; Start 01/16/17 at 16:30 Tramadol HCl (Ultram) 50 mg PRN Q6HRS PRN PO PAIN Last administered on 19:58; Start 01/16/17 at 16:30 Hydralazine HCl (Apresoline Inj) 10 mg PRN Q4HRS PRN IVP ELEVATED BP, SEE COMMENTS; Start 01/16/17 at 16:30 Docusate Sodium (Colace) 100 mg PRN DAILY PRN PO CONSTIPATION; Start 01/16/17 at 16:30 Enoxaparin Sodium (Lovenox 40mg Syringe) 40 mg DAILY SQ Last administered on 08:50; Start 01/17/17 at 09:00 Propofol 20 ml @ As Directed STK-MED ONCE IV ; Start 01/17/17 at 09:30; Stop 01/17/17 at 09:31; Status DC Dexamethasone Sodium Phosphate (Decadron) 20 mg STK-MED ONCE .ROUTE ; Start at 09:30; Stop 01/17/17 at 09:31; Status DC Famotidine (Pepcid) 20 mg STK-MED ONCE .ROUTE ; Start 01/17/17 at 09:30; Stop 01/17/17 at 09:31; Status DC Lidocaine HCl (Lidocaine Pf 2% Vial) 5 ml STK-MED ONCE .ROUTE ; Start 01/17/17 at 09:30; Stop 01/17/17 at 09:31; Status DC Ondansetron HCl (Zofran) 4 mg STK-MED ONCE .ROUTE ; Start 01/17/17 at 09:30; Stop 01/17/17 at 09:31; Status DC Succinylcholine Chloride (Anectine) 200 mg STK-MED ONCE .ROUTE ; Start at 09:30; Stop 01/17/17 at 09:31; Status DC Iohexol (Omnipaque 300 Mg/ml) 50 ml STK-MED ONCE .ROUTE ; Start 01/17/17 at 09: 57; Stop 01/17/17 at 09:58; Status DC Iohexol (Omnipaque 300 Mg/ml) 50 ml STK-MED ONCE IV Last administered on 10:38; Start 01/17/17 at 10:38; Stop 01/17/17 at 10:53; Status DC Levofloxacin/ Dextrose 100 ml @ 100 mls/hr Q24H IV Last administered on 14:18; Start 01/17/17 at 12:00; Stop 01/21/17 at 17:07; Status DC Fentanyl Citrate (Fentanyl 2ml Vial) 25 mcg PRN Q5MIN PRN IV MILD PAIN; Start 01/17/17 at 11:30; Stop 01/17/17 at 16:13; Status DC Fentanyl Citrate (Fentanyl 2ml Vial) 50 mcg PRN Q5MIN PRN IV MODERATE PAIN; Start 01/17/17 at 11:30; Stop 01/17/17 at 16:13; Status DC Morphine Sulfate 1 mg PRN Q10MIN PRN IV SEVERE PAIN; Start 01/17/17 at 11:30; Stop 01/17/17 at 16:14; Status DC Ringer's Solution 1,000 ml @ 30 mls/hr Q24H IV ; Start 01/17/17 at 11:20; Stop 01/17/17 at 23:19; Status DC Lidocaine HCl (Xylocaine-Mpf 1% Vial) 2 ml 1X PRN PRN ID IV START; Start 01/17 at 11:30; Stop 01/17/17 at 16:14; Status DC Hydromorphone HCl (Dilaudid) 0.5 mg PRN Q10MIN PRN IV SEV PAIN, Second choice; Start 01/17/17 at 11:30; Stop 01/17/17 at 16:13; Status DC Prochlorperazine Edisylate (Compazine) 5 mg PACU PRN PRN IV NAUSEA, MRX1 Last administered on 01/17/17 12:44; Start 01/17/17 at 11:30; Stop 01/17/17 at 16 :14; Status DC Nicotine (Nicoderm Cq 21mg) 1 patch DAILY TD Last administered on 01/22/17 08 :50; Start 01/17/17 at 12:00 Gadobutrol (Gadavist) 6 mmol 1X ONCE IV Last administered on 01/17/17 15:03 ; Start 01/17/17 at 15:00; Stop 01/17/17 at 15:01; Status DC Acetaminophen (Tylenol) 500 mg PRN Q6HRS PRN PO PAIN Last administered on 01/21 17:36; Start 01/17/17 at 21:00 Lactobacillus Rhamnosus (Culturelle) 1 cap BID PO Last administered on 20:41; Start 01/18/17 at 09:00; Stop 01/19/17 at 07:55; Status DC Docusate Sodium (Colace) 100 mg BID PO Last administered on 01/22/17 08:49; Start 01/17/17 at 21:00 Levetiracetam (Keppra) 500 mg BID PO Last administered on 01/22/17 08:49; Start 01/17/17 at 21:00 Olanzapine (ZyPREXA) 2.5 mg HS PO Last administered on 01/21/17 20:25; Start 01/17/17 at 21:00 Trazodone HCl (Desyrel) 50 mg HS PO Last administered on 01/21/17 20:25; Start 01/17/17 at 21:00 Calcium Carbonate/ Glycine (Tums) 500 mg PRN AFTMEALHC PRN PO INDIGESTION Last administered on 01/22/17 08:49; Start 01/17/17 at 21:15 Artificial Tears (Artificial Tears) 1 drop PRN Q1HR PRN OU DRY EYE; Start at 21:15 Citalopram Hydrobromide (CeleXA) 40 mg DAILY PO Last administered on 08:48; Start 01/18/17 at 09:00 Fluticasone Propionate (Flonase) 1 spray PRN DAILY PRN NS ALLERGIES; Start at 21:01; Stop 01/17/17 at 21:02; Status DC Losartan Potassium (Cozaar) 100 mg DAILY PO Last administered on 01/22/17 08: 49; Start 01/18/17 at 09:00 Magnesium Hydroxide (Milk Of Magnesia) 2,400 mg PRN DAILY PRN PO CONSTIPATION Last administered on 01/19/17 08:32; Start 01/17/17 at 21:15 Non-Formulary Medication 15 gm PRN BID PRN TP RASH; Start 01/17/17 at 21:00; Status UNV Pantoprazole Sodium (Protonix) 40 mg DAILYAC PO Last administered on 08:49; Start 01/18/17 at 07:30 Diphenhydramine HCl (Benadryl) 25 mg PRN Q6HRS PRN PO ITCHING; Start 01/17/17 at 21:00 Fluticasone Propionate (Flonase) 1 spray PRN DAILY PRN NS ALLERGIES; Start at 21:15 Nystatin (Mycostatin) 1 jaci PRN DAILY PRN TP RASH; Start 01/17/17 at 21:15 Triamcinolone Acetonide (Kenalog) 1 jaci PRN DAILY PRN TP RASH; Start 01/17/17 at 21:15 Lactobacillus Rhamnosus (Culturelle) 1 cap BID PO Last administered on 08:48; Start 01/20/17 at 21:00 Albuterol/ Ipratropium (Duoneb) 3 ml RTQID NEB Last administered on 01/22/17 08:06; Start 01/19/17 at 12:00 Prochlorperazine Maleate (Compazine) 10 mg PRN Q6HRS PRN PO NAUSEA/VOMITING Last administered on 01/19/17 21:12; Start 01/19/17 at 20:00 Iohexol (Omnipaque 300 Mg/ml) 75 ml 1X ONCE IV Last administered on 11:10; Start 01/20/17 at 09:45; Stop 01/20/17 at 09:53; Status DC Polyethylene Glycol (miraLAX PACKET) 17 gm PRN DAILY PRN PO CONSTIPATION; Start 01/20/17 at 10:00 Active Scripts Active Reported Nystatin-Triamcinolone Cream (Nystatin/Triamcin) 15 Gm Cream..g. 15 Gm TP PRN BID PRN Tylenol (Acetaminophen) 325 Mg Tablet 500 Mg PO PRN Q6HRS PRN Flonase Allergy Relief (Fluticasone Propionate) 9.9 Ml [place].susp 1 Sprays NS PRN DAILY PRN Tums (Calcium Carbonate) 300 Mg Tab.chew 300 Mg PO PRN Q1HR PRN Docusate Sodium 100 Mg Capsule 100 Mg PO BID Levetiracetam 500 Mg Tablet 500 Mg PO BID Olanzapine 5 Mg Tablet 2.5 Mg PO HS Trazodone Hcl 50 Mg Tablet 50 Mg PO HS Escitalopram Oxalate 10 Mg Tablet 30 Mg PO DAILY Losartan Potassium 100 Mg Tablet 100 Mg PO DAILY Omeprazole 40 Mg Capsule.dr 40 Mg PO DAILY Bacid Caplet (Acidoph/L.bulg/Bif.b/S.thermop) 1 Each Tablet 2 Each PO DAILY Simethicone 100 Ml Liquid 30 Ml MC PRN Q6HRS PRN Refresh Optive Eye Drops (Carboxymethylcellulos/Glycerin) 15 Ml Drops 15 Ml OP PRN Q1HR PRN Milk Of Magnesia (Magnesium Hydroxide) 2,400 Mg/10 Ml Oral.susp 2,400 Mg PO PRN DAILY PRN Vitals/I & O Vital Sign - Last 24 Hours 01/21/17 01/21/17 01/21/17 01/21/17 11:18 11:20 14:15 14:16 Temp 97.9 97.9 Pulse 91 91 Resp 19 B/P (MAP) 128/80 (96) 128/80 Pulse Ox 93 93 93 O2 Delivery Room Air Room Air Room Air O2 Flow Rate 10.0 01/21/17 01/21/17 01/21/17 01/21/17 15:10 15:16 15:30 19:30 Temp 97.6 98.1 97.6 98.1 Pulse 72 66 Resp 18 18 B/P (MAP) 134/89 (104) 138/81 (100) Pulse Ox 95 95 94 O2 Delivery Room Air Room Air Room Air Room Air O2 Flow Rate 10.0 01/21/17 01/21/17 01/21/17 01/22/17 19:58 20:08 23:59 03:53 Temp 98.2 98.3 98.2 98.3 Pulse 77 68 Resp 20 18 18 B/P (MAP) 96/70 (79) 110/71 (84) Pulse Ox 96 92 90 O2 Delivery Room Air Room Air Room Air Room Air 01/22/17 01/22/17 01/22/17 07:00 08:06 08:49 Temp 98.1 98.1 Pulse 89 89 Resp 19 B/P (MAP) 126/82 (97) 126/82 Pulse Ox 91 93 O2 Delivery Room Air Room Air TAMMY ARROYO MD Jan 22, 2017 09:07
--- NOTE | 2017-01-22 09:36 | PDOC ---
Provider Note Provider Note ADDENDUM: Pt now wants a bx for confirmation. I d/w IR regarding bx. IR recommended EUS for bx. This will need to be done at . I d/w Pat from palliative care TAMMY ARROYO MD Jan 22, 2017 09:36
--- NOTE | 2017-01-22 10:07 | PDOC3 ---
Discharge Summary Visit Information Date of Admission: Jan 16, 2017 Date of Discharge: Jan 22, 2017 Admitting Diagnosis: abd pain, jaundice Final Diagnosis h/o dementia, acute metabolic encephalopathy w. delirium on admit one 2.6cm pancreatic mass, consider pancreatic cancer multiple lung nodules, need to rule out mets h/o dementia, cognitive decline jaundice with elevated transaminitis previous heavy EtOH abuse, none recent GERD HTN from custodial wheelchair bound, walks with a walker Problems Medical Problems: (1) Abdominal pain Status: Acute (2) Jaundice Status: Acute (3) Pancreatic mass Status: Acute Brief Hospital Course Allergies Allergies Coded Allergies Type Severity Reaction Last Updated Verified No Known Drug Allergies 01/17/17 No Vital Signs Vital Signs Date Time Temp Pulse Resp B/P (MAP) Pulse Ox O2 Delivery O2 Flow Rate FiO2 01/22/17 08:49 89 126/82 01/22/17 08:06 93 Room Air 01/22/17 07:00 98.1 19 98.1 01/21/17 15:30 10.0 Lab Results Laboratory Tests Test 01/20/17 10:37 White Blood Count 7.2 x10^3/uL (4.0-11.0) Red Blood Count 4.23 x10^6/uL (4.30-5.70) Hemoglobin 12.1 g/dL (13.0-17.5) Hematocrit 35.9 % (39.0-53.0) Mean Corpuscular Volume 85 fL (79-100) Mean Corpuscular Hemoglobin 29 pg (25-35) Mean Corpuscular Hemoglobin Concent 34 g/dL (31-37) Red Cell Distribution Width 13.8 % (11.5-14.5) Platelet Count 262 x10^3/uL (140-400) Neutrophils (%) (Auto) 71 % (31-73) Lymphocytes (%) (Auto) 18 % (24-48) Monocytes (%) (Auto) 9 % (0-9) Eosinophils (%) (Auto) 1 % (0-3) Basophils (%) (Auto) 1 % (0-3) Neutrophils # (Auto) 5.1 x10^3uL (1.8-7.7) Lymphocytes # (Auto) 1.3 x10^3/uL (1.0-4.8) Monocytes # (Auto) 0.7 x10^3/uL (0.0-1.1) Eosinophils # (Auto) 0.1 x10^3/uL (0.0-0.7) Basophils # (Auto) 0.1 x10^3/uL (0.0-0.2) Sodium Level 139 mmol/L (136-145) Potassium Level 3.4 mmol/L (3.5-5.1) Chloride Level 103 mmol/L (98-107) Carbon Dioxide Level 27 mmol/L (21-32) Anion Gap 9 (6-14) Blood Urea Nitrogen 4 mg/dL (8-26) Creatinine 0.7 mg/dL (0.7-1.3) Estimated GFR (Cockcroft-Gault) 117.5 BUN/Creatinine Ratio 6 (6-20) Glucose Level 110 mg/dL (70-99) Calcium Level 8.7 mg/dL (8.5-10.1) Total Bilirubin 5.4 mg/dL (0.2-1.0) Aspartate Amino Transf (AST/SGOT) 172 U/L (15-37) Alanine Aminotransferase (ALT/SGPT) 231 U/L (16-63) Alkaline Phosphatase 417 U/L (46-116) Total Protein 6.2 g/dL (6.4-8.2) Albumin 2.6 g/dL (3.4-5.0) Albumin/Globulin Ratio 0.7 (1.0-1.7) Brief Hospital Course Mr. García is a 56 old seen w. pancreatic mass, Ca 19-9 positive at 1000, unable to stent by ERCP, could not biopsy IR or GI, gen surg, palliative and Onc all evaluated, refer to as outpatient for EUS and biopsy. his symptoms were OK, abd pain tolerable, he had declined any biopsy or treatment, (wanted to focus on quality of life and limit interventions on 01/21 ) then changed his mind when presented with discharge plan on 01/22, will perform as outpatient referral sent Discharge Information Condition at Discharge: Improved Follow Up: Weeks Disposition/Orders: D/C to Another Facility (skilled) Scheduled Acidoph/L.bulg/Bif.b/S.thermop (Bacid Caplet), 2 EACH PO DAILY, (Reported) Docusate Sodium (Docusate Sodium), 100 MG PO BID, (Reported) Escitalopram Oxalate (Escitalopram Oxalate), 30 MG PO DAILY, (Reported) Levetiracetam (Levetiracetam), 500 MG PO BID, (Reported) Losartan Potassium (Losartan Potassium), 100 MG PO DAILY, (Reported) Olanzapine (Olanzapine), 2.5 MG PO HS, (Reported) Omeprazole (Omeprazole), 40 MG PO DAILY, (Reported) Trazodone Hcl (Trazodone Hcl), 50 MG PO HS, (Reported) Scheduled PRN Acetaminophen (Tylenol), 500 MG PO PRN Q6HRS PRN for PAIN, (Reported) Calcium Carbonate (Tums), 300 MG PO PRN Q1HR PRN for INDIGESTION, (Reported) Carboxymethylcellulos/Glycerin (Refresh Optive Eye Drops), 15 ML OP PRN Q1HR PRN for DRY EYE, (Reported) Fluticasone Propionate (Flonase Allergy Relief), 1 SPRAYS NS PRN DAILY PRN for ALLERGIES, (Reported) Magnesium Hydroxide (Milk Of Magnesia), 2,400 MG PO PRN DAILY PRN for CONSTIPATION, (Reported) Nystatin/Triamcin (Nystatin-Triamcinolone Cream), 15 GM TP PRN BID PRN for RASH, (Reported) Simethicone (Simethicone), 30 ML MC PRN Q6HRS PRN for HEARTBURN / GAS, (Reported ) Patient Instructions Patient Instructions referral sent personally by me to [facility] to [facility] for GI, EUS, biopsy of pancreatic mass, Dr. Bland Palliative care discussed with his family w. me Time . 35 min RICARDO MERRILL MD Jan 22, 2017 10:07
[2017-01-22 11:00] VITALS: BP 170/86
--- NOTE | 2017-01-22 11:45 | PDOC2 ---
PALLIATIVE CARE Palliative Care Note Palliative Care Patient alert. Has spoke with Dr. Abbott again this am and has decided he would like Bx done. This will need to be done at [facility]. Patient is alert and oriented. Is able to verbalize that he may likely has cancer on pancreas. Discussed options for care. He would like to go back to the Rehab center and followup with [facility] for biopsy Discussed AD again. HE would like his brother Bruce and sister Bernadine to be his DPOA's Spoke with Bruce and Bernadine in separate phone conversations. Reviewed medical condition; pancreatic mass. unable to place stent or do biopsy here. Referrals are being made to go to [facility] as outpatient for followup and bx. Both Bruce and Bernadine agree to be DPOA. Instructed them to obtain copy of document from Nursing Facility. Discussed Code Status with patient again. He requests DNR/DNI. Patient read Outside the Hospital Document (outload) Is able to verbalize that if no attempt was made to resuscitate likely he would . Patient acknowledged and signed document Spoke with Cora HER at the Nursing Facility. Updated on discharge plan , DNR/DNI and POA document, Dr. Whittington updated and signed Outside the Hospital DNR/DNI form Plan: Group Home today. Referrals to [facility] to followup and biopsy DNR/DNI Raina TORO will assist with completion of AD. OG NEWBERRY Jan 22, 2017 11:45
--- NOTE | 2017-01-22 12:08 | PDOC ---
Subjective: Subjective: Eating some, tummy doesn't feel too good. "Jonesing for a cigarette." Talks a lot about the weather, how it's probably cold in [place]. Objective: Objective: Reviewed oncology and PC notes. D/w Pat yesterday. Vital Signs: Vital Signs Date Time Temp Pulse Resp B/P (MAP) Pulse Ox O2 Delivery O2 Flow Rate FiO2 01/22/17 11:35 97 Room Air 01/22/17 11:00 97.4 72 20 170/86 (114) 97.4 01/21/17 15:30 10.0 PE: GEN: NAD LUNGS: CTAB HEART: RRR ABD: some distention, not particularly tender NEURO/PSYCH: probably a little confused A/P: Pancreatic cancer -- Plans for EUS w/ biopsy for confirmation @ [facility] (to be arranged by Dr. Abbott). DC per primary. JAYY ALMENDAREZ Jan 22, 2017 12:08
--- NOTE | 2017-01-22 12:14 | PDOC ---
SURGICAL PROGRESS NOTE Subjective Pt sitting up in bed, notes mild stomach pain, drew PO Vital Signs Vital Signs Date Time Temp Pulse Resp B/P (MAP) Pulse Ox O2 Delivery O2 Flow Rate FiO2 01/22/17 11:35 97 Room Air 01/22/17 11:00 97.4 72 20 170/86 (114) 97.4 01/21/17 15:30 10.0 I&O Intake and Output 01/23/17 07:00 # Voids 1 General: Alert, Cooperative, No acute distress Abdomen: Soft, No tenderness Problem List Problems Medical Problems: (1) Abdominal pain Status: Acute (2) Jaundice Status: Acute (3) Pancreatic mass Status: Acute Assessment/Plan pancreatic mass agree with plans per oncology and GI will be available for intervention if needed Problems: REJI PERALTA MD Jan 22, 2017 12:14
== END 2017-01-22 13:35 | disposition home or self-care (01) | DRG 435 ==
LOC: ER 13:17 → 6 SOUTH 16:03
PROVIDERS: ADMIT Internal Medicine; ATTEND Internal Medicine
PROC: 0FJD8ZZ Inspection of Pancreatic Duct, Via Natural or Artificial Opening Endoscopic (ICD-10-PCS; principal; 2017-01-16)
DX: C25.9 Malignant neoplasm of pancreas, unspecified (principal); K83.1 Obstruction of bile duct; G93.41 Metabolic encephalopathy; K83.0 Cholangitis; F05 Delirium due to known physiological condition; J98.11 Atelectasis; K21.9 Gastro-esophageal reflux disease without esophagitis; G93.89 Other specified disorders of brain; F02.80 Dementia in other diseases classified elsewhere, unspecified severity, without behavioral disturbance, psychotic disturbance, mood disturbance, and anxiety; F10.10 Alcohol abuse, uncomplicated; F17.210 Nicotine dependence, cigarettes, uncomplicated; F31.9 Bipolar disorder, unspecified; F41.9 Anxiety disorder, unspecified; I10 Essential (primary) hypertension; R59.1 Generalized enlarged lymph nodes; R74.0 Nonspecific elevation of levels of transaminase and lactic acid dehydrogenase [LDH]; Z51.5 Encounter for palliative care; Z82.49 Family history of ischemic heart disease and other diseases of the circulatory system; Z85.07 Personal history of malignant neoplasm of pancreas; Z87.820 Personal history of traumatic brain injury; Z99.3 Dependence on wheelchair
CPT/HCPCS: 36415; 70553; 71010; 71250; 74176; 74177; 74328; 76705; 80048; 80053; 80074; 80076; 81001; 82140; 82378; 83010; 83605; 83690; 83735; 83880; 84443; 85025; 85610; 86301; 87086; 87641; 93005; 94250; 94640; 94760; 96361; 96374; 96375; A9585; C1757; J0330; J0780; J1100; J1650; J1956; J2270; J2405; J2704; J3010; J7030; J7620; Q0164; Q9967; S0028; 92610; 99285-25; J2001